=== PATIENT | male | born 1940 | race Caucasian/White ===

== ENCOUNTER → 2016-12-11 | Outpatient (CLI) | payer OTHER, MEDICARE ==
[~2016-12-11] MED LIST: ABIR1TAB PO; ACET1TAB84 PO; APIX1TAB3 PO; ATOR-26 PO; CALC-354; CALC-393 PO; CETI10TA84 PO; CLOP1TAB15 PO; CYAN100020 PO; DENOINJ IM; DIAZ2TAB PO; DOXY-300 PO; ESCI10TA17 PO; FERR28TA2 PO; HMLI SC; HYDR-5688 PO; INSU1.2I; INSU100I2 SC; KPH250 PO; LEUP30IN3 IM; LEVO100T7 PO; LEVO75TA5 PO; LISI10TA PO; LOPE1CAP6 PO; MAGN400T6 PO; METO1TAB31 PO; ONDA4TAB46 PO; PRD/25 PO; PRD5 PO; WARF3TAB6 PO; WARF4TAB8 PO; ZNTT/150 PO; iron; ventolin inhaler; vitamin B12
== END | disposition home or self-care (01) ==
LOC: C.NUCL 12:51
PROVIDERS: ATTEND Radiology Radiation Oncology
DX: C61 Malignant neoplasm of prostate (principal)

== ENCOUNTER → 2017-01-14 | Outpatient (CLI) | payer OTHER, MEDICARE | END | disposition home or self-care (01) | LOC: C.NUCL 13:03 | PROVIDERS: ATTEND Radiology Radiation Oncology | DX: C61 Malignant neoplasm of prostate (principal); C79.51 Secondary malignant neoplasm of bone ==

== ENCOUNTER → 2017-02-13 | Outpatient (CLI) | payer OTHER, MEDICARE ==
[~2017-02-13] MED LIST changes: -WARF3TAB6 PO; -WARF4TAB8 PO; -ventolin inhaler
== END | disposition home or self-care (01) ==
LOC: C.NUCL 13:01
PROVIDERS: ATTEND Radiology Radiation Oncology
DX: C61 Malignant neoplasm of prostate (principal); C79.51 Secondary malignant neoplasm of bone

== ENCOUNTER 2017-03-12 14:33 | Emergency (ER) | payer OTHER, MEDICARE ==
[~2017-03-12] VITALS: Ht 172.7 cm; Wt 109.3 kg
[~2017-03-12 14:33] MED LIST changes: -ABIR1TAB PO; -ACET1TAB84 PO; -CALC-354; -CYAN100020 PO; -DENOINJ IM; -DIAZ2TAB PO; -DOXY-300 PO; -FERR28TA2 PO; -HYDR-5688 PO; -INSU100I2 SC; -LEUP30IN3 IM; -LEVO100T7 PO; +METO-478 PO; -METO1TAB31 PO; -ONDA4TAB46 PO; -PRD5 PO
[2017-03-12 14:39] VITALS: TEMP 36.6; Ht 172.7 cm; Wt 109.3 kg
[2017-03-12] MEDS ORDERED: XYLOCAINE 1%/SOD BICARB 20 ML VIAL INFIL ONE (16:00)
[2017-03-12] MEDS ORDERED: ABIR1TAB PO (16:23)
[2017-03-12] MEDS ORDERED: PRD5 PO (16:23)
[2017-03-12] MEDS ORDERED: CYAN100020 PO (16:23)
[2017-03-12] MEDS ORDERED: INSU100I2 SC (16:23)
[2017-03-12] MEDS ORDERED: FERR28TA2 PO (16:23)
--- NOTE | 2017-03-12 16:30 | DIAGNOSTIC IMAGING REPORT ---
CT SCAN OF THE BRAIN WITHOUT IV CONTRAST CLINICAL HISTORY: Fall with head injury. COMPARISON STUDY: CT of the brain dated 03/07/2016. TECHNIQUE: Unenhanced axial CT scan of the brain is performed from the vertex to the skull base. CT DOSE: 966.18 mGy.cm FINDINGS: Brain parenchyma: There are age-related involutional changes noting mild subcortical and periventricular microangiopathic change. There is no hemorrhage, mass effect, or evidence of acute territorial ischemia by CT criteria. Valdovinos-white matter is preserved. No extra-axial fluid collection is seen. Ventricles, sulci, cisterns: Prominent secondary to involutional change. Intracranial vasculature: There is atherosclerotic calcification of the cavernous carotid arteries. Calvarium: Skeletal structures are osteopenic. There is no depressed calvarial fracture. Soft tissues: There is a tiny left frontal scalp contusion/laceration. Sinuses and mastoids: The visualized paranasal sinuses are clear. The mastoid air cells are well pneumatized. Orbits: The bony orbits are grossly intact. There are bilateral ocular lens implants. IMPRESSION: There is no hemorrhage, mass effect, or evidence of acute territorial ischemia by CT criteria. Electronically signed by: Marck Suggs M.D. 03/12/2017 4:28 PM Dictated Date/Time: 03/12/2017 4:26 PM
--- NOTE | 2017-03-12 17:14 | DIAGNOSTIC IMAGING REPORT ---
AP CHEST WITH LEFT-SIDED RIB SERIES CLINICAL HISTORY: Fall. FINDINGS: An AP chest radiograph with 5 additional views from a left-sided rib series is compared to study dated 08/25/2016 and correlated with chest CT dated 09/28/2016. The AP view is degraded by patient rotation. The examination is also degraded by large body habitus. The heart is enlarged and there is atherosclerotic calcification of the thoracic aorta. The pulmonary vasculature is noncongested. Chronic interstitial thickening is similar to previous. No airspace consolidation, large pleural effusion, or pneumothorax is seen. There is mild bibasilar atelectasis. The skeletal structures are osteopenic. There is an acute nondistracted left anterior eighth rib fracture. No additional acute rib fracture is seen on the rib series. A healed left posterior 11th rib fractures similar to previous. The remainder of the bony thorax is grossly intact. Degenerative change is seen throughout the thoracic spine. A densely sclerotic lesion is again seen in the body of L1. This is unchanged and consistent with the patient's known history of metastatic prostate cancer. IMPRESSION: 1. Cardiomegaly with no acute cardiopulmonary abnormality. 2. There is an acute left anterior eighth rib fracture. Electronically signed by: Marck Suggs M.D. 03/12/2017 5:12 PM Dictated Date/Time: 03/12/2017 5:08 PM
--- NOTE | 2017-03-12 17:16 | DIAGNOSTIC IMAGING REPORT ---
LEFT FOREARM 2 VIEWS CLINICAL HISTORY: Fall with left arm pain. FINDINGS: AP and lateral views of the left forearm are obtained. No prior studies are available for comparison at the time of dictation. The skeletal structures are osteopenic. There is no radiographic evidence of fracture in the left forearm. Arthritic change is seen in the elbow and wrist joints. Mild soft tissue swelling is present in the distal forearm. There is advanced atherosclerotic calcification of the regional arteries. IMPRESSION: 1. Mild soft tissue swelling with no radiographic evidence of acute fracture. 2. Osteopenia and arthritic change involving the left wrist and elbow. Electronically signed by: Marck Suggs M.D. 03/12/2017 5:13 PM Dictated Date/Time: 03/12/2017 5:12 PM
--- NOTE | 2017-03-12 17:17 | DIAGNOSTIC IMAGING REPORT ---
LEFT ELBOW 3 VIEWS CLINICAL HISTORY: Fall with left arm injury. FINDINGS: 3 views of the left elbow are obtained. No prior studies are available for comparison at the time of dictation. The skeletal structures are osteopenic. No fracture is seen. Enthesophytes arise from the humeral epicondyles. Large spurs arise from the radial head, and there is osteophyte formation along the medial joint space. There is no joint effusion. The overlying soft tissues are normal as imaged. There is advanced atherosclerotic calcification of the regional arteries. IMPRESSION: Osteopenia and arthritic change as above. No left elbow fracture is identified. Electronically signed by: Marck Suggs M.D. 03/12/2017 5:15 PM Dictated Date/Time: 03/12/2017 5:14 PM
--- NOTE | 2017-03-12 17:19 | DIAGNOSTIC IMAGING REPORT ---
LEFT KNEE 3 VIEWS CLINICAL HISTORY: Fall with left knee pain. FINDINGS: AP, crosstable lateral, and sunrise views of left knee are obtained. No prior studies are available for comparison at the time of dictation. The skeletal structures are osteopenic. A left knee arthroplasty is in near-anatomic alignment. No periprosthetic lucency is identified. No acute fracture is seen. There has been undersurface remodeling of the patella. A large calcified fabella is incidentally noted. A small joint effusion is suspected. There is prepatellar soft tissue edema and laceration. Advanced atherosclerotic calcification is noted in the regional arteries. IMPRESSION: 1. Prepatellar soft tissue edema and laceration. 2. No fracture is seen. 3. A left knee arthroplasty is in near-anatomic alignment. Electronically signed by: Marck Suggs M.D. 03/12/2017 5:17 PM Dictated Date/Time: 03/12/2017 5:15 PM
--- NOTE | 2017-03-12 17:23 | DIAGNOSTIC IMAGING REPORT ---
LEFT HAND 3 VIEWS CLINICAL HISTORY: Fall with left hand pain. FINDINGS: 3 views of left hand are obtained. No prior studies are available for comparison at the time of dictation. The skeletal structures are osteopenic. There is no radiographic evidence of fracture. Advanced arthritic change with bony sclerosis, overgrowth, and subluxation is seen at the first carpometacarpal joint. Moderate narrowing is seen at the radiocarpal articulation, and there is moderate arthritic change at the first metacarpal pharyngeal joint. There is erosive osteoarthritic changes seen involving the interphalangeal joints, distal greater than proximal. This is greatest involving the second and third distal interphalangeal joints. Mild soft tissue edema is present in the fingers. There is advanced atherosclerotic calcification of the regional arteries. IMPRESSION: 1. No fracture is identified. 2. Osteopenia and advanced arthritic change as detailed above. Electronically signed by: Marck Suggs M.D. 03/12/2017 5:20 PM Dictated Date/Time: 03/12/2017 5:17 PM
--- NOTE | 2017-03-12 18:31 | EMERGENCY ROOM VISIT NOTE ---
ED Visit Note First contact with patient: 16:22 I have personally seen and evaluated the patient with the physician academic affairs assistant. I agree with the diagnostic/management decisions and have personally been involved in these decisions and agree with the diagnosis.
[2017-03-12 19:01] VITALS: BP 150/66; O2SAT 96
[2017-03-12 19:02] VITALS: PULSE 58
[2017-03-12] MEDS ORDERED: ONDA4TAB46 PO (19:37)
--- NOTE | 2017-03-13 00:09 | EMERGENCY ROOM VISIT NOTE ---
ED Visit Note First contact with patient: 15:07 Chief Complaint: Fall. History of Present Illness: Mr. Kathleen is a 76-year-old white male who is brought into the ED via ambulance accompanied by multiple family members. Patient was transferred from the [facility] for multiple injuries he sustained on a fall. According to documentation patient was walking down an incline, lost his balance and fell onto the left side of his body. He denies any lightheaded dizziness before the fall and loss of consciousness at the time of the fall. Patient was transferred because she is currently on Plavix and sustained a scalp wound and what was described as a serious left leg wound. Additionally patient reports since the time of the injuries he has had no dizziness, headache, visual changes, hearing changes, difficulty speaking, difficult swallowing, difficulty coordinating body movements, chest pain, shortness of breath, abdominal pain, nausea, vomiting, extremity weakness/ numbness/tingling. Currently patient is complaining of pain in the area of a skin abrasion/ laceration over the left frontal area, the left lateral thorax in the area of rib 10, left elbow and forearm pain, and left knee pain. Patient rates his overall discomfort 7/10 with prominence over his knee injury. All of this pain worsens with palpation. He has not identified any alleviating factors related to the pain. He reports he has not taken any medications for pain prior to arrival at the hospital. Review of Systems: As noted above in history of present illness. body systems were reviewed and found to be negative as noted above. Past Medical History: (1) Anemia (2) Anticoagulated on Coumadin (3) Chest pain radiating to arm (4) Coronary artery disease with history of myocardial infarction without history of CABG (5) Diabetes (6) GERD (gastroesophageal reflux disease) (7) Hyperlipidemia (8) Hypertension (9) Hypothyroidism (10) Osteoarthritis (11) Paroxysmal atrial fibrillation (12) Prostate cancer Surgical Problems: (1) S/P prostatectomy (2) Stented coronary artery Current Medications: Medications Dose Route/Sig Max Daily Dose Days Date Category Dose Instructions Humalog Kwikpen (Insulin Lispro (Human)) 100 Unit/Ml Inj 10 Units SC QAM 03/12/17 Reported IF BSG > 150 TAKES 10 UNITS, IF BSG HIGHER PT ADJUSTS DOSE ACCORDINGLY. Zytiga (Abiraterone Acetate) 250 Mg Tab 1,000 Mg PO QAM 03/12/17 Reported Vitamin B12 (Cyanocobalamin) 1,000 Mcg Tab 1,000 Mcg PO BID 03/12/17 Reported Iron (Ferrous Sulfate) Unknown Strength Tab 120 Mg PO BID 03/12/17 Reported Prednisone 5 Mg Tab 5 Mg PO BID 03/12/17 Reported Eliquis (Apixaban) 5 Mg Tab 5 Mg PO BID 02/07/17 Reported Toujeo Solostar (Insulin Glargine) 300 Unit/Ml Inj 60 Units HS 10/23/16 Reported K-Phos Neutral (Phosphorus) 250 Mg Tab 0.5 Tab PO BID 08/25/16 Reported Anti-Diarrheal (Loperamide Hcl) 2 Mg Cap 4 Mg PO PRN 03/07/16 Reported Levothyroxine Sodium 75 Mcg Tab 75 Mcg PO DAILY 03/07/16 Reported Prinivil (Lisinopril) 10 Mg Tab 10 Mg PO DAILY 11/13/15 Reported Lexapro (Escitalopram Oxalate) 10 Mg Tab 10 Mg PO DAILY AT 1500 11/13/15 Reported Toprol Xl (Metoprolol Succinate) 25 Mg Tab 25 Mg PO DAILY 12/12/14 Reported Calcium (Calcium Carbonate) 600 Mg Tab 1,200 Mg PO QPM 12/12/14 Reported Plavix (Clopidogrel Bisulfate) 75 Mg Tab 75 Mg PO DAILY 05/03/10 Reported Zantac (Ranitidine HCl) 150 Mg Tab 150 Mg PO BID 05/03/10 Reported Lipitor (Atorvastatin Calcium) 80 Mg Tab 80 Mg PO HS 05/03/10 Reported Mag-Ox (Magnesium Oxide) 400 Mg Tab 1,200 Mg PO QPM 05/03/10 Reported Zyrtec (Cetirizine HCl) 10 Mg Tab 10 Mg PO PRN 05/18/09 Reported Allergies to Medications: Aspirin, penicillin. Social History: Patient is currently retired; he feels safe in his home environment; he denies tobacco use. Tetanus Immunization Status: Patient reports up-to-date. Physical Examination: Vital Signs: Date Time Temp Pulse Resp B/P Pulse Ox O2 Delivery O2 Flow Rate FiO2 03/12/17 19:02 58 03/12/17 19:01 45 16 150/66 96 Room Air 03/12/17 17:09 50 16 165/59 98 Room Air 03/12/17 16:06 48 19 157/99 95 Room Air 03/12/17 15:01 53 03/12/17 14:39 36.6 56 16 165/77 98 Room Air GENERAL: 76-year-old male in mild distress due to pain, nontoxic-appearing, afebrile and hemodynamically stable. NEUROLOGICAL: Awake, alert and oriented to person, place and time. Answering questions appropriately and following commands. Cranial nerves II through XII grossly intact. Good hand eye coordination. No focal motor or sensory deficits. Good short-term long-term recall. SKIN: Warm, dry and pink. Soft tissue injuries: Left forehead shows a 1.5 cm full-thickness laceration and left knee shows an 11.1 cm full-thickness laceration over the anterior aspect. Both of these wounds were minimally bleeding. Additionally patient has multiple skin tears throughout the left arm including the elbow, forearm and hand. HEENT: Skull: Atraumatic and normocephalic. No bony deformity, crepitus or tenderness. No raccoon's eyes or valente signs. No drainage from the ears or nostrils; no hemotympanum. Face: Mild tenderness in the left frontal area without bony deformity or crepitus. No other facial tenderness or bony crepitus. PERRLA. EOMI without nystagmus. Sclera white and conjunctiva pink. No malocclusion. No intraoral trauma. Airway patent. Speech normal. Trachea midline. No jugular venous distention. BACK: No tenderness over the bony cervical, thoracic and lumbar spine. Full range of motion of the cervical spine. No CVA tenderness. THORAX: Lungs sounds are clear to auscultation and equal bilaterally with symmetrical chest wall. Moderate tenderness over the anterior and lateral aspect of ribs 8-10 on the left. No palpable bony crepitus, deformity or soft tissue injury. No subcutaneous air. HEART: Regular rate and rhythm. No gallops, rubs or murmurs are appreciated. ABDOMEN: Flat, soft and nontender. Positive bowel sounds in all quadrants. No guarding, rigidity or organomegaly. PELVIS: Stable and non tender to compression and rock. LEFT UPPER EXTREMITY: Soft tissue injuries as noted above.. No tenderness over the shoulder, upper arm, elbow, forearm, wrist or hand. Full range of motion of the shoulder, elbow, forearm, wrist and hand. LEFT LOWER EXTREMITY: Soft tissue injury as noted above. No shortening or malrotation. No tenderness over the hip, thigh, mild tenderness over his laceration but no tenderness throughout the lower leg, ankle or foot. Full range of motion of the hip, knee, ankle and toes. Distal pulses were intact and equal bilaterally. Distal sensation was intact and equal bilaterally. Capillary refill is brisk. ED Course: Patient is assessed as noted above. Patient was offered pain medication multiple times and refused. Head CT: Was reviewed by myself and read by the radiologist showing no acute intracranial abnormalities or skull fractures. PA Chest and Left Sided Rib X-Ray Series: Was read by myself and the radiologist and shows a left anterior eighth rib fracture. No pneumothorax. Left Elbow X-Rays: Was read by myself and the radiologist showing no acute fractures or dislocations. Left Forearm X-Rays: Was read by myself and the radiologist and shows no acute fractures. Left Knee X-Rays: Was read by myself and the radiologist and shows no acute fractures or dislocations. Wound repair: Complexity: Basic: Verbal consent was obtained after the risks and benefits were explained. The skin was prepped at all laceration and skin tears with betadine and a sterile field set. Wound edges of the full-thickness wounds was anesthetized with approximately 10.3 ml buffered 1% lidocaine. The wounds were explored for foreign bodies and none found. Copious irrigation was performed using sterile saline. With direct pressure the bleeding subsided. Debridement was not performed. The wound edges full-thickness wounds were approximated using: Left forehead wound: 6-0 Ethilon with 2 simple interrupted sutures, Left knee wound: 5.0 Ethilon with 17 simple interrupted sutures. The wound ends of all skin tears were closed with Steri-Strips. Hemostasis and excellent approximation was achieved. Antibacterial ointment and a sterile dressing applied to the full-thickness wounds. No complications and the patient tolerated the procedure well. Patient was reassessed multiple times during his stay in the emergency department. Patient's case was reviewed with Dr. Aragon; he had apparently assessed the patient we agreed on diagnostic approach, treatment, disposition and plan. Patient and were educated about tonight's findings and instructed on his treatment plan; he verbalizes understanding and agreement with this plan. Clinical Impression: Fall. Multiple full-thickness lacerations and superficial skin tears. Disposition: Patient discharged home in stable condition accompanied by his ; prior to departure he was reassessed and subjectively reported he was feeling much better and was pain-free. Plan: Comfort measures, wound care and signs of infection were discussed with the patient and his . Additionally signs of head injury were discussed with the patient's . Patient was encouraged to follow-up with his primary care provider or return to the ED for signs of infection, suture removal of her scalp laceration of 5-6 days and suture removal of his knee laceration in 10-12 days. Patient was encouraged return to the ED for any signs of head injury or any new/ concerning symptoms.
[2017-05-15] MEDS ORDERED: DOXY-300 PO (13:13)
[2017-06-12] MEDS ORDERED: PRD/25 PO (14:12)
[2017-07-02] MEDS ORDERED: ZNTT/150 PO (19:11)
[2017-07-02] MEDS ORDERED: APIX1TAB3 PO (19:15)
[2017-07-02] MEDS ORDERED: CALC-354 (19:15)
[2017-07-02] MEDS ORDERED: HYDR-5688 PO (19:17)
[2017-07-02] MEDS ORDERED: ACET1TAB84 PO (19:17)
[2017-08-21] MEDS ORDERED: DENOINJ IM (13:22)
[2017-08-21] MEDS ORDERED: LEUP30IN3 IM (13:22)
== END 2017-03-12 19:55 | disposition home or self-care (01) ==
LOC: EDBD 14:33 → C.EDB 14:35
DX: S01.81XA Laceration without foreign body of other part of head, initial encounter (principal); S81.012A Laceration without foreign body, left knee, initial encounter; R07.81 Pleurodynia; I25.10 Atherosclerotic heart disease of native coronary artery without angina pectoris; E11.9 Type 2 diabetes mellitus without complications; E78.5 Hyperlipidemia, unspecified; I48.0 Paroxysmal atrial fibrillation; I10 Essential (primary) hypertension; E03.9 Hypothyroidism, unspecified; M19.90 Unspecified osteoarthritis, unspecified site; Z79.02 Long term (current) use of antithrombotics/antiplatelets; Z79.4 Long term (current) use of insulin; Z79.899 Other long term (current) drug therapy; Z98.61 Coronary angioplasty status; Z85.46 Personal history of malignant neoplasm of prostate; W10.2XXA Fall (on)(from) incline, initial encounter; Y93.01 Activity, walking, marching and hiking

== ENCOUNTER → 2017-03-29 | Outpatient (CLI) | payer OTHER, MEDICARE ==
[~2017-03-29] MED LIST changes: +ABIR1TAB PO; +ACET1TAB84 PO; +CALC-354; +CYAN100020 PO; +DENOINJ IM; +DIAZ2TAB PO; +DOXY-300 PO; +FERR28TA2 PO; -HMLI SC; +HYDR-5688 PO; +INSU100I2 SC; +LEUP30IN3 IM; +LEVO100T7 PO; +PRD5 PO; -iron; -vitamin B12
== END | disposition home or self-care (01) ==
LOC: C.NUCL 13:07
PROVIDERS: ATTEND Radiology Radiation Oncology
DX: C61 Malignant neoplasm of prostate (principal); C79.51 Secondary malignant neoplasm of bone

== ENCOUNTER → 2017-04-25 | Outpatient (CLI) | payer OTHER, MEDICARE ==
[~2017-04-25] MED LIST changes: -ABIR1TAB PO
== END | disposition home or self-care (01) ==
LOC: C.NUCL 13:06
PROVIDERS: ATTEND Radiology Radiation Oncology
DX: C61 Malignant neoplasm of prostate (principal); C79.51 Secondary malignant neoplasm of bone

== ENCOUNTER 2017-05-11 15:32 | Emergency (ER) | payer OTHER, MEDICARE ==
[~2017-05-11] VITALS: Ht 175.3 cm; Wt 105.6 kg
[~2017-05-11 15:32] MED LIST changes: -ACET1TAB84 PO; -CALC-354; -DENOINJ IM; -DIAZ2TAB PO; -DOXY-300 PO; -HYDR-5688 PO; -LEUP30IN3 IM; -LEVO100T7 PO; -PRD/25 PO
[2017-05-11 15:39] VITALS: TEMP 36.4; Ht 175.3 cm; Wt 105.6 kg
[2017-05-11] MEDS ORDERED: LIDO/EPINEPHRINE/SOD BICARB 20 ML VIAL INFIL ONE (16:15)
--- NOTE | 2017-05-11 16:18 | EMERGENCY ROOM VISIT NOTE ---
ED Visit Note First contact with patient: 16:00 I have seen and examined this patient with Nayla Cosme and generally agree with the treatment plan as discussed. (Cody Killian MD) First contact with patient: 16:00 CHIEF COMPLAINT: Infection of the right forearm skin tear HISTORY OF PRESENT ILLNESS: This 76-year-old male patient presents to the emergency department with his with concern for an infected skin tear on his right arm that has not been healing. Patient states he scraped his arm on a wall 2 weeks ago, he has been washing the wound regularly in cleaning with peroxide and applying antibiotic ointment, however the wound continues to not heal. He saw his PCP several days ago and was placed on doxycycline for possible infection, he has been taking this for 2 days with little improvement. He has noticed thick yellow drainage from the wound. He denies any fever, chills, or loss of appetite. They rate the pain as aching and 5/10. Tetanus shot is up to date. The patient is receiving chemotherapy for metastatic prostate cancer and is also diabetic. He denies chest pain, shortness breath, nausea/vomiting, abdominal pain, urinary complaints. He is on Xarelto and Plavix. REVIEW OF SYSTEMS: A review of systems was performed with positives and pertinent negatives listed in the history of present illness. All other systems were reviewed and are negative. ALLERGIES: See chart MEDICATIONS: See chart PMH: See chart SOCIAL HISTORY: See chart PHYSICAL EXAM: Vital Signs: Reviewed Nurse's notes, vital signs stable. GENERAL : Pleasant and cooperative, no acute distress, non toxic in appearance, well- developed well-nourished. SKIN: There is an large skin tear on the right posterior forearm which measures about 10 cm x 6 cm in diameter. The skin edges are not approximated and there is raw, excoriated skin exposed. A portion of the skin flap appears necrotic and is nonadherent to the rest of the skin, when lifted up there is thick yellow purulent drainage noted with a foul smell. There is no surrounding fluctuance or induration, no extending erythema to suggest cellulitis. There are skin markings noted on the patient's arms from previous visit with PCP, that indicate an improvement in cellulitis since starting on antibiotics. Radial pulse intact, sensation and motor function intact. Capillary refill less than 2 seconds. MUSCULOSKELETAL: There is no limitation of the range of motion of the right arm. EMERGENCY DEPARTMENT COURSE: I examined the patient. Verbal consent was obtained to perform the procedure. After saline and Betadine cleansing and 3 mL of 1% buffered lidocaine with epinephrine anesthesia, the necrosed skin was lifted with forceps and purulent drainage was expressed. A swab was obtained for culture. The flap was surgically excised from healthy tissue using #11 scalpel blade, and underlying infected tissue was easily debrided, with good exposure of healthy pink tissue and blood flow present. The wound cavity was then copiously irrigated with sterile saline under pressure. Bleeding controlled. The wound was dressed with petroleum gauze, and wrapped with Kerlix. The patient tolerated the procedure well. Referral to wound care clinic was also provided to the patient. The patient was discharged home in stable condition. (Nayla Cosme CRNP) Problem List Medical Problems: (1) Anemia Status: Chronic (2) Anticoagulated on Coumadin Status: Chronic (3) Coronary artery disease with history of myocardial infarction without history of CABG Status: Chronic (4) Diabetes Status: Chronic (5) GERD (gastroesophageal reflux disease) Status: Chronic (6) Hyperlipidemia Status: Chronic (7) Hypertension Status: Chronic (8) Hypothyroidism Status: Chronic (9) Osteoarthritis Status: Chronic (10) Paroxysmal atrial fibrillation Status: Chronic (11) Prostate cancer Permanent Comment: Adenocarcinoma the prostate diagnosed 10/02/2005 Magalis 4+5 Status post radical prostatectomy T3 [id number] with subsequent rise in PSA Status post completion of radiation therapy 2006 received 7300 cGy Ongoing hormonal suppression for 11 years 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 Zytega and prednisone therapy for 2 years Progression of bone disease seen on restaging studies 09/28/2016 Status: Chronic Surgical Problems: (1) S/P prostatectomy Status: Chronic (Nayla Cosme CRNP) Current/Historical Medications Scheduled Apixaban (Eliquis), 5 MG PO BID Atorvastatin (Lipitor), 80 MG PO HS Calcium Carbonate (Calcium), 1,200 MG PO QPM Cetirizine (Zyrtec), 10 MG PO PRN Clopidogrel (Plavix), 75 MG PO DAILY Cyanocobalamin (Vitamin B12), 1,000 MCG PO BID Escitalopram (Lexapro), 10 MG PO DAILY AT 1500 Ferrous Sulfate (Iron), 120 MG PO BID Insulin Glargine (Toujeo Solostar), 63 UNITS HS Insulin Lispro (Human) (Humalog Kwikpen), 10 UNITS SC QAM Levothyroxine Sodium (Levothyroxine Sodium), 75 MCG PO DAILY Lisinopril (Prinivil), 10 MG PO DAILY Loperamide Hcl (Anti-Diarrheal), 4 MG PO prn Magnesium Oxide (Mag-Ox), 1,200 MG PO QPM Metoprolol Succinate (Toprol Xl), 25 MG PO DAILY Phosphorus (K-Phos Neutral), 0.5 TAB PO BID Prednisone (Prednisone), 5 MG PO BID Scheduled PRN Ranitidine (Zantac), 150 MG PO BID PRN for Insomnia Allergies Coded Allergies: Penicillins (Verified Allergy, Mild, HIVE'S, 03/12/17) Flushing (Verified Allergy, Mild, HIVES, 03/12/17) Aspirin (Verified Allergy, Unknown, HIVES, 03/12/17) [place] (Verified Allergy, Unknown, HIVES, 03/12/17) Tomato (Verified Allergy, Unknown, HIVES, 03/12/17) Uncoded Allergies: scramled and fried eggs (Adverse Reaction, Intermediate, diarrhea, 10/23/16 ) Vital Signs Date Time Temp Pulse Resp B/P (MAP) Pulse Ox O2 Delivery O2 Flow Rate FiO2 05/11/17 17:28 58 16 149/75 100 05/11/17 15:39 36.4 55 16 147/74 96 (Nayla Cosme CRNP) Departure Information Impression Primary Impression: Skin tear of right upper extremity Additional Impression: Infection of skin Dispostion Home / Self-Care Condition GOOD Referrals Van Valiente M.D. (PCP) Patient Instructions ED Bandage Change, ED Wound Care, [facility] Additional Instructions Change the dressing once a day. After removing the old dressing, clean the wound with warm soapy water only. Do not scrub the wound. Pat the area dry. Apply the petroleum gauze over the wound directly, followed by dry gauze and gauze wrap. Always wash hands before and after performing a dressing change. A referral to the wound clinic has been placed. You should hear from them shortly to set up an appointment for follow-up of your wound care. Continue taking her doxycycline as prescribed for the full course. It is important that you do not stop taking this before the course is completed. Please return to the ER for any worsening symptoms, including increasing pain, redness, swelling, pus drainage, streaking up the arm, fever/chills/feeling ill , or any other concerns. Problem Qualifiers
[2017-05-11 17:28] VITALS: BP 149/75; PULSE 58; O2SAT 100
[2017-05-15] MEDS ORDERED: DOXY-300 PO (13:13)
[2017-06-12] MEDS ORDERED: PRD/25 PO (14:12)
[2017-07-02] MEDS ORDERED: ZNTT/150 PO (19:11)
[2017-07-02] MEDS ORDERED: APIX1TAB3 PO (19:15)
[2017-07-02] MEDS ORDERED: CALC-354 (19:15)
[2017-07-02] MEDS ORDERED: HYDR-5688 PO (19:17)
[2017-07-02] MEDS ORDERED: ACET1TAB84 PO (19:17)
[2017-08-21] MEDS ORDERED: DENOINJ IM (13:22)
[2017-08-21] MEDS ORDERED: LEUP30IN3 IM (13:22)
== END 2017-05-11 17:29 | disposition home or self-care (01) ==
LOC: C.EDB 15:33 → C.EDD 17:29
DX: S51.811A Laceration without foreign body of right forearm, initial encounter (principal); L08.9 Local infection of the skin and subcutaneous tissue, unspecified; X58.XXXA Exposure to other specified factors, initial encounter; D64.9 Anemia, unspecified; Z51.81 Encounter for therapeutic drug level monitoring; Z79.01 Long term (current) use of anticoagulants; I25.10 Atherosclerotic heart disease of native coronary artery without angina pectoris; E11.9 Type 2 diabetes mellitus without complications; K21.9 Gastro-esophageal reflux disease without esophagitis; E78.5 Hyperlipidemia, unspecified; I10 Essential (primary) hypertension; E03.9 Hypothyroidism, unspecified; M19.90 Unspecified osteoarthritis, unspecified site; I48.0 Paroxysmal atrial fibrillation; C61 Malignant neoplasm of prostate; Z79.4 Long term (current) use of insulin

== ENCOUNTER → 2017-06-05 | Outpatient (CLI) | payer OTHER, MEDICARE ==
[~2017-06-05] MED LIST changes: +ACET1TAB84 PO; +CALC-354; +DENOINJ IM; +DIAZ2TAB PO; +DOXY-300 PO; +HYDR-5688 PO; +LEUP30IN3 IM; +LEVO100T7 PO; -METO-478 PO; +METO1TAB31 PO; +PRD/25 PO
--- NOTE | 2017-06-05 18:49 | DIAGNOSTIC IMAGING REPORT ---
BONE SCAN WHOLE BODY CLINICAL HISTORY: Metastatic prostate carcinoma. COMPARISON STUDY: Whole body bone scan September 14, 2016. TECHNIQUE: 27.4 mCi of technetium 99m MDP was injected IV at 12:00 PM on June 05, 2017. 3 hours following injection, flow body imaging was performed in the anterior and posterior projections. FINDINGS: Expected soft tissue and renal uptake is present. Uptake within the feet is likely degenerative. Uptake within the sternum has increased in extent since prior exam of September 14, 2016. Foci of moderate radiotracer uptake within multiple mid anterior left ribs is likely posttraumatic and corresponds to fracture shown on exam of March 12, 2017. Additional foci of uptake within multiple additional anterior ribs is nonspecific. Multifocal uptake within the lower thoracic and lumbosacral spine has increased since exam of September 14, 2016. Uptake within the right iliac bone has improved. The findings suggest a mixed treatment response. IMPRESSION: 1. Findings consistent with a mixed treatment response. However, overall progression of skeletal metastases with increase in uptake associated with the sternal and spinal metastases since prior exam September 14, 2016. Interval improvement in uptake within the right iliac lesion. 2. Multifocal uptake within several mid anterior left ribs is post traumatic. Uptake within additional anterior left upper ribs is nonspecific and could be posttraumatic or neoplastic. Electronically signed by: Elijah Henry M.D. 06/05/2017 6:48 PM Dictated Date/Time: 06/05/2017 4:08 PM
== END | disposition home or self-care (01) ==
LOC: C.NUCL 11:27
PROVIDERS: ATTEND Physician Assistant Medical
DX: C61 Malignant neoplasm of prostate (principal); C79.51 Secondary malignant neoplasm of bone

== ENCOUNTER 2017-06-17 16:55 | Emergency (ER) | payer OTHER, MEDICARE ==
[~2017-06-17] VITALS: Ht 175.3 cm; Wt 105.1 kg
[~2017-06-17 16:55] MED LIST changes: -ACET1TAB84 PO; -CALC-354; -DENOINJ IM; -DIAZ2TAB PO; -DOXY-300 PO; -HYDR-5688 PO; -LEUP30IN3 IM; -LEVO100T7 PO
[2017-06-17 17:15] VITALS: TEMP 36.7; Ht 175.3 cm; Wt 105.1 kg
[2017-06-17] MEDS ORDERED: LEVO100T7 PO (17:26)
[2017-06-17] MEDS ORDERED: ACETAMINOPHEN IV 650 MG in EMPTY BAG 0 ML IV ONE (18:15)
[2017-06-17] MEDS ORDERED: SODIUM CHLORIDE 0.9% 1000ML 1,000 ML IV ONE (18:15)
--- NOTE | 2017-06-17 18:49 | DIAGNOSTIC IMAGING REPORT ---
CT SCAN OF THE BRAIN WITHOUT IV CONTRAST CLINICAL HISTORY: Fall one week ago. Headache. COMPARISON STUDY: CT of the brain dated 03/12/2017. TECHNIQUE: Unenhanced axial CT scan of the brain is performed from the vertex to the skull base. CT DOSE: 1020.47 mGy.cm FINDINGS: Brain parenchyma: There are age-related involutional changes noting mild subcortical and periventricular microangiopathic change. There is no hemorrhage, mass effect, or evidence of acute territorial ischemia by CT criteria. Valdovinos-white matter is preserved. No extra-axial fluid collection is seen. Ventricles, sulci, cisterns: Prominent secondary to involutional change. Intracranial vasculature: There is atherosclerotic calcification of the cavernous carotid arteries. Calvarium: The skeletal structures are osteopenic. No depressed calvarial fracture is seen. Sinuses and mastoids: The visualized paranasal sinuses are clear. The mastoid air cells are well pneumatized. Orbits: The bony orbits are grossly intact. There are bilateral ocular lens implants. IMPRESSION: There is no hemorrhage, mass effect, or evidence of acute territorial ischemia by CT criteria. Electronically signed by: Marck Suggs M.D. 06/17/2017 6:47 PM Dictated Date/Time: 06/17/2017 6:45 PM
[2017-06-17 18:51] LABS: BASO % 0.2 %; BASO ABS # 0.01 K/uL (0-0.2); COMPLETE YES; EOS % 1.7 %; HEMATOCRIT 34.6 % (42-52); IG% 0.4 %; LYMPH % 10.6 %; LYMPH ABS # 0.57 K/uL (1.2-3.4); MEAN CORPUSCULAR HEMOGLOBIN 29.6 pg (25-34); MEAN CORPUSCULAR HGB CONC 31.8 g/dl (32-36); MEAN PLATELET VOLUME 10.1 fL (7.4-10.4); MONO % 11.5 %; NEUT % 75.6 %; PLATELET COUNT 274 K/uL (130-400); RED BLOOD COUNT 3.72 M/uL (4.7-6.1); WHITE BLOOD COUNT 5.37 K/uL (4.8-10.8)
--- NOTE | 2017-06-17 18:52 | DIAGNOSTIC IMAGING REPORT ---
CT SCAN OF THE CERVICAL SPINE CLINICAL HISTORY: Fall one week ago. Neck pain. COMPARISON STUDY: No priors. TECHNIQUE: CT scan of the cervical spine is performed from the skull base to the upper thoracic spine. Images are reviewed in the axial, sagittal, and coronal planes. IV contrast was not administered for this examination. A dose lowering technique was utilized adhering to the principles of ALARA. CT DOSE: Reported separately under the concurrently performed CT scan of the brain. FINDINGS: Skeletal structures: The skeletal structures are osteopenic. There is no evidence of fracture or subluxation involving the cervical spine. Vertebral body height and alignment are maintained. There is straightening of the cervical lordosis. The odontoid process and lateral masses are intact. The atlantoaxial articulation is preserved noting productive degenerative change. The spinous processes appear intact. Anterior osteophytes are seen throughout. There is moderate to advanced multilevel cervical spondylosis. Uncovertebral and facet arthropathy contribute to neural foraminal narrowing at most levels. Intervertebral discs: There is moderate to advanced disc space narrowing seen from C3 -C4 through C7-T1. Central canal: Posterior disc osteophyte complexes are seen at all levels between C3-C4 and C7-T1. This likely contributes to multilevel acquired compromise of the central canal. Soft tissues: The prevertebral and paraspinous soft tissues are within normal limits. The thyroid gland is atrophic. Atherosclerotic calcification is noted in the carotid bulbs. Calvarium: The visualized calvarium at the skull base appears intact. Brain parenchyma: Partially visualized brain parenchyma the skull base is within normal limits noting age-related involutional change. Sinuses and mastoids: The visualized paranasal sinuses are clear. There is a trace left mastoid effusion. The right mastoid air cells are well pneumatized. Lung apices: Clear as visualized. IMPRESSION: 1. There is no evidence of fracture or subluxation involving the cervical spine. 2. Osteopenia and spondylotic change as above. Electronically signed by: Marck Suggs M.D. 06/17/2017 6:51 PM Dictated Date/Time: 06/17/2017 6:48 PM
[2017-06-17 19:00] LABS: PROTHROMBIN TIME (PATIENT) 10.4 SECONDS (9.0-12.0)
[2017-06-17 19:10] LABS: BUN/CREATININE RATIO 13.5 (10-20); CALCIUM 8.4 mg/dl (8.5-10.1); CREATININE 0.74 mg/dl (0.60-1.40); POTASSIUM 3.9 mmol/L (3.5-5.1)
[2017-06-17] MEDS ORDERED: DIAZEPAM INJ 5 MG/ML 2 ML CARP IV STA (19:55)
[2017-06-17] MEDS ORDERED: OPTIRAY 320 IV PRN (20:15)
--- NOTE | 2017-06-17 20:52 | DIAGNOSTIC IMAGING REPORT ---
CT ANGIOGRAM OF THE BRAIN; CT ANGIOGRAM OF THE NECK CLINICAL HISTORY: Head and neck pain. COMPARISON STUDY: CT scan of the brain and cervical spine performed the same day 06/17/2017. TECHNIQUE: Following the IV administration of 119 of Optiray 320, CT angiogram of the head and neck was performed from the aortic arch to the vertex. Images are reviewed in the axial, sagittal, and coronal planes. 3-D MIPS images are created and assessed. IV contrast was administered without complication. All measurements were calculated based on NASCET criteria. A dose lowering technique was utilized adhering to the principles of ALARA. CT DOSE: 646.51 mGy.cm FINDINGS: Brain parenchyma: There are age-related involutional changes noting mild subcortical and periventricular microangiopathic disease. There is no hemorrhage, mass effect, or evidence of acute territorial ischemia by CT criteria. There is no evidence of enhancing mass lesion on the angiogram phase images. The ventricles, sulci, and cisterns are normal in configuration. Valdovinos-white matter differentiation is preserved. No extra-axial fluid collection is seen. Thoracic aorta: There is mild atherosclerotic calcification of the thoracic aorta. Visualized portions of the thoracic aorta are normal in caliber. The aortic arch demonstrates standard 3-vessel anatomy. Right carotid arterial system: The right common carotid artery is widely patent, as are the right internal and external carotid arteries. Mild atherosclerotic calcification is noted in the carotid bulb. Left carotid arterial system: The left common carotid artery is widely patent, as are the left internal and external carotid arteries. Mild atherosclerotic calcification is seen in the carotid bulb. Vertebral arteries: Widely patent bilaterally noting right-sided dominance. Subclavian arteries: Widely patent bilaterally. Intracranial vasculature: There is atherosclerotic calcification of the cavernous carotid arteries. There is origin of the right posterior cerebral artery. A right posterior communicating artery is identified. The internal carotid arteries are patent at the skull base, as are the anterior and middle cerebral arteries bilaterally. The vertebrobasilar system and posterior cerebral arteries are widely patent. The right vertebral artery is dominant. There is no aneurysm, high-grade stenosis, or focal vessel cut off seen throughout the intracranial circulation. Jugular veins: Widely patent bilaterally. Dural sinuses: Patent. Lung apices: Partially visualized upper lobe lung parenchyma appears clear. Soft tissues: The visualized pharyngeal soft tissues are normal in appearance noting angiographic phase technique. The oropharyngeal airway appears widely patent. Calcified sialoliths are noted in the parotid glands. The salivary glands are otherwise normal in appearance. The thyroid gland is mildly atrophic. No cervical lymphadenopathy is seen. Calcified tonsilliths are noted. Orbits: The bony orbits are intact. Orbital contents are normal as visualized noting bilateral ocular lens implants. Skeletal structures: The skeletal structures are osteopenic. The calvarium appears intact. Moderate multilevel cervical spondylosis is observed. Sinuses and mastoids: Trace mucosal thickening is seen in the maxillary antra. The remaining paranasal sinuses are clear. There is a small right mastoid effusion. The left mastoid air cells are well pneumatized. IMPRESSION: 1. There is no hemorrhage, mass effect, or evidence of acute territorial ischemia by CT criteria. 2. Unremarkable CT angiogram of the brain. 3. Unremarkable CT angiogram of the neck. Electronically signed by: Marck Suggs M.D. 06/17/2017 8:50 PM Dictated Date/Time: 06/17/2017 8:41 PM
--- NOTE | 2017-06-17 21:01 | EMERGENCY ROOM VISIT NOTE ---
ED Visit Note First contact with patient: 17:38 Patient seen and examined at bedside and discussed physician obstetric assistant evaluation with patient and family. Discussed all results thus far as well as patient's complaints of headache and neck pain. Patient with reassuring vitals and labs, CT head and C-spine negative. However given fall 1 week prior and delay in presentation pain, some back for CT angiogram to rule out any additional injury including dissection. Patient with arthritic changes noted, no metastases noticed C-spine the patient does have other bony metastases related to his prostate cancer. Additional imaging were reviewed and was negative for any additional injury or pathology. Patient was moderately improved following mild dose of muscle relaxer here.
[2017-06-17] MEDS ORDERED: DIAZ2TAB PO (21:38)
[2017-06-17 21:50] VITALS: BP 142/75; PULSE 52; O2SAT 96
--- NOTE | 2017-06-18 23:04 | EMERGENCY ROOM VISIT NOTE ---
ED Visit Note First contact with patient: 17:38 Chief Complaint: Headache and neck pain. History of Present Illness: Mr. Kathleen is a 76-year-old white male who ambulates with the use of a cane into the ED accompanied by his and son complaining of a headache and neck pain. Historically patient reports she has a history of diabetes, coronary artery disease and is status post CABG, paroxysmal atrial fibrillation, and prostrate cancer. Patient and reports he has been having more frequent falls then previously. When questioned they reports he slipped and fell on a wet bathroom floor approximately 4 weeks ago and struck his occipital head on the bathroom floor. He reports at that time he did not have a loss of consciousness and until today he was not having any symptoms. They gone report that approximately one week ago while getting out of bed he fell and struck his head on the floor again; he does not remember exactly where he struck the head. At that time he had no loss of consciousness and has had no symptoms until today. Patient reports he was awoken from sleep this morning, approximately approximately 8 hours ago, with a severe headache and neck pain. Since that time the pain has been constant. He places his discomfort over the occipital area just above the cervical spine. He describes his pain as a constant pressure sensation. The pain is nonradiating. He currently rates his discomfort 9/10. His pain worsens when he laterally rotates his head and cervical spine to the left. He has not identified any alleviating factors related to the pain. He has not taken any medications for pain prior to arrival at the hospital. Associated with his pain he does report he has mild dizziness with head movement and positional changes. He denies visual changes, hearing changes, difficulty speaking, difficulty swallowing, difficulty ambulating/coordinating body movements, thoracic and lumbar back pain, upper respiratory tract symptoms, cough, shortness of breath, chest discomfort, palpitations, abdominal pain, nausea/vomiting, decreased appetite, diarrhea, constipation, rectal bleeding, black/tarry stools, urinary symptoms, hematuria, extremity weakness/numbness/tingling. Review of Systems: As noted above in history of present illness. All body systems were reviewed and found to be negative as noted above. Past Medical History: As noted above, anemia, GERD, dyslipidemia, hypothyroidism , hypertension, osteoarthritis, status post prostatectomy. Current Medications: Medications Dose Route/Sig Max Daily Dose Days Date Category Dose Instructions Levothyroxine Sodium 100 Mcg Tab 100 Mcg PO DAILY 06/17/17 Reported Prednisone 2.5 Mg Tab 1 Tab PO HS 30 06/12/17 Reported Humalog Kwikpen (Insulin Lispro (Human)) 100 Unit/Ml Inj 10 Units SC QAM 03/12/17 Reported IF BSG > 150 TAKES 10 UNITS, IF BSG HIGHER PT ADJUSTS DOSE ACCORDINGLY. Vitamin B12 (Cyanocobalamin) 1,000 Mcg Tab 1,000 Mcg PO BID 03/12/17 Reported Iron (Ferrous Sulfate) Unknown Strength Tab 120 Mg PO BID 03/12/17 Reported Prednisone 5 Mg Tab 5 Mg PO QDB 03/12/17 Reported Eliquis (Apixaban) 5 Mg Tab 5 Mg PO BID 02/07/17 Reported Toujeo Solostar (Insulin Glargine) 300 Unit/Ml Inj 55 Units HS 10/23/16 Reported K-Phos Neutral (Phosphorus) 250 Mg Tab 1 Tab PO DAILY 08/25/16 Reported Anti-Diarrheal (Loperamide Hcl) 2 Mg Cap 4 Mg PO PRN 03/07/16 Reported Prinivil (Lisinopril) 10 Mg Tab 10 Mg PO DAILY 11/13/15 Reported Lexapro (Escitalopram Oxalate) 10 Mg Tab 10 Mg PO DAILY AT 1500 11/13/15 Reported Toprol Xl (Metoprolol Succinate) 25 Mg Tab 25 Mg PO DAILY 12/12/14 Reported Calcium (Calcium Carbonate) 600 Mg Tab 1,200 Mg PO QPM 12/12/14 Reported Plavix (Clopidogrel Bisulfate) 75 Mg Tab 75 Mg PO DAILY 05/03/10 Reported Zantac (Ranitidine HCl) 150 Mg Tab 150 Mg PO BID PRN 05/03/10 Reported Lipitor (Atorvastatin Calcium) 80 Mg Tab 80 Mg PO HS 05/03/10 Reported Mag-Ox (Magnesium Oxide) 400 Mg Tab 1,200 Mg PO QPM 05/03/10 Reported Zyrtec (Cetirizine HCl) 10 Mg Tab 10 Mg PO PRN 05/18/09 Reported Allergies to Medications: Aspirin, penicillin. Social History: Patient is currently retired; he lives with his and feels safe in his home environment; he denies tobacco and alcohol use. Physical Examination: Vital Signs: Date Time Temp Pulse Resp B/P (MAP) Pulse Ox O2 Delivery O2 Flow Rate FiO2 06/17/17 21:50 52 20 142/75 96 06/17/17 21:10 53 20 147/76 97 Room Air 06/17/17 20:20 56 20 153/78 93 Room Air 06/17/17 18:57 62 20 155/74 96 Room Air 06/17/17 17:15 36.7 76 20 135/72 96 Room Air GENERAL: 76-year-old male in mild to moderate distress due to pain, nontoxic- appearing, afebrile and hemodynamically stable. NEUROLOGICAL: Awake, alert and oriented to person, place and time. Answering questions appropriately and following commands. Good hand eye coordination. No focal motor sensory deficits. SKIN: Warm, dry and pink. No soft tissue eruptions or trauma noted. HEENT: Atraumatic and normocephalic. Skull: No bony deformity, bony crepitus, swelling or ecchymosis. No raccoon's eyes or valente signs. No drainage in the ears of the nostril; no hemotympanum. Face: No bony tenderness, swelling or ecchymosis. PERRLA. EOMI without nystagmus. Funduscopic examination is unremarkable with no signs of increased intracranial pressure. Sclera white and conjunctiva pink. No malocclusion. Airway patent. Speech is normal. No lymphadenopathy. Trachea midline. No jugular venous distention. BACK: No tenderness over the bony cervical, thoracic and lumbar spine. No tenderness throughout the paraspinous muscles. No palpable spasm. Full range of motion of the cervical spine. No CVA tenderness. THORAX: Lungs sounds are clear to auscultation and equal bilaterally with symmetrical chest wall. No wheezing, rales or rhonchi. No crepitus, tenderness , subcutaneous air or deformities noted. HEART: Regular rate and rhythm. No gallops, rubs or murmurs are appreciated. ABDOMEN: Flat, soft and nontender. Positive bowel sounds in all quadrants. No guarding, rigidity or organomegaly. EXTREMITIES: Moves all extremities well on command and with purpose. All distal neurovascular statuses are intact and equal bilaterally. No calf tenderness or cords. ED Course: Patient is assessed as noted above. Patient's medication list was reviewed. Laboratory Testing: Test 06/17/17 18:23 06/17/17 18:25 Range/Units Bedside Glucose 147 70-99 mg/dl White Blood Count 5.37 4.8-10.8 K/uL Red Blood Count 3.72 4.7-6.1 M/uL Hemoglobin 11.0 14.0-18.0 g/dL Hematocrit 34.6 42-52 % Mean Corpuscular Volume 93.0 80-100 fL Mean Corpuscular Hemoglobin 29.6 25-34 pg Mean Corpuscular Hemoglobin Concent 31.8 32-36 g/dl Platelet Count 274 130-400 K/uL Mean Platelet Volume 10.1 7.4-10.4 fL Neutrophils (%) (Auto) 75.6 % Lymphocytes (%) (Auto) 10.6 % Monocytes (%) (Auto) 11.5 % Eosinophils (%) (Auto) 1.7 % Basophils (%) (Auto) 0.2 % Neutrophils # (Auto) 4.06 1.4-6.5 K/uL Lymphocytes # (Auto) 0.57 1.2-3.4 K/uL Monocytes # (Auto) 0.62 0.11-0.59 K/uL Eosinophils # (Auto) 0.09 0-0.5 K/uL Basophils # (Auto) 0.01 0-0.2 K/uL RDW Standard Deviation 53.2 36.4-46.3 fL RDW Coefficient of Variation 15.7 11.5-14.5 % Immature Granulocyte % (Auto) 0.4 % Immature Granulocyte # (Auto) 0.02 0.00-0.02 K/uL Prothrombin Time 10.4 9.0-12.0 SECONDS Prothromb Time International Ratio 1.0 0.9-1.1 Activated Partial Thromboplast Time 25.9 21.0-31.0 SECONDS Partial Thromboplastin Ratio 1.0 Sodium Level 140 136-145 mmol/L Potassium Level 3.9 3.5-5.1 mmol/L Chloride Level 108 98-107 mmol/L Carbon Dioxide Level 25 21-32 mmol/L Anion Gap 7.0 3-11 mmol/L Blood Urea Nitrogen 10 7-18 mg/dl Creatinine 0.74 0.60-1.40 mg/dl Est Creatinine Clear Calc Drug Dose 101.5 ml/min Estimated GFR () 103.8 Estimated GFR (Non- 89.6 BUN/Creatinine Ratio 13.5 10-20 Random Glucose 140 70-99 mg/dl Calcium Level 8.4 8.5-10.1 mg/dl Total Bilirubin 0.6 0.2-1 mg/dl Direct Bilirubin 0.1 0-0.2 mg/dl Aspartate Amino Transf (AST/SGOT) 11 15-37 U/L Alanine Aminotransferase (ALT/SGPT) 21 12-78 U/L Alkaline Phosphatase 106 45-117 U/L Total Protein 6.0 6.4-8.2 gm/dl Albumin 2.8 3.4-5.0 gm/dl Head CT: Was reviewed by myself and read by the radiologist showing no hemorrhage, mass effect, acute stroke or skull fractures. Cervical Spine CT: Was reviewed by myself and the radiologist and shows no evidence of acute fracture or subluxation. Osteopenia and spondylotic ranges were noted. CTA Brain and Neck: Were reviewed by myself and read by the radiologist and shows no hemorrhage, mass effect or acute ischemia, unremarkable CTA of the brain and neck. Patient was hydrated with normal saline and received 650 mg of acetaminophen IV and 2 mg of Valium IV. Patient was reassessed multiple times during his stay in the emergency department. Patient's case was reviewed with Dr. Gallego; she independently assessed the patient we agreed on diagnostic approach, treatment, disposition and plan. Patient was educated about today's findings and instructed on his treatment plan ; he verbalizes understanding and agreement with this plan. Clinical Impression: Acute headache. Acute neck pain. Decision-Making: Initially my differential diagnosis I considered intracranial bleed, mass effect, arterial dissection, concussion, metastasis, vertebral fracture, vertebral subluxation and other causes. Disposition: Patient discharged home in stable condition accompanied by his and son; prior to departure he was reassessed and subjectively reported that he was pain and symptom-free. Plan: Patient was encouraged to continue his current medications as prescribed. Patient was prescribed 2 mg of Valium every 6 hours as needed for neck pain/ stiffness; he was encouraged that if he felt too somnolent on this medication is to only use a half a tablet every 6 hours. Patient was encouraged use ice or heat on his neck as needed 5-6 times a day for 20-30 minutes. Patient was encouraged to use his walker at home versus his cane for better stability. Patient was encouraged to call his family physician in the morning and for request follow-up care and treatment. Patient was encouraged return ED for worsening headache, worsening neck pain, any abnormal neurological symptoms, fevers or any new/concerning symptoms. Return to the emergency department
[2017-07-02] MEDS ORDERED: ZNTT/150 PO (19:11)
[2017-07-02] MEDS ORDERED: CALC-354 (19:15)
[2017-07-02] MEDS ORDERED: APIX1TAB3 PO (19:15)
[2017-07-02] MEDS ORDERED: ACET1TAB84 PO (19:17)
[2017-07-02] MEDS ORDERED: HYDR-5688 PO (19:17)
[2017-08-21] MEDS ORDERED: DENOINJ IM (13:22)
[2017-08-21] MEDS ORDERED: LEUP30IN3 IM (13:22)
== END 2017-06-17 21:50 | disposition home or self-care (01) ==
LOC: C.EDB 16:56 → C.EDC 21:50
DX: R51 Headache (principal); M54.2 Cervicalgia; I48.0 Paroxysmal atrial fibrillation; E11.9 Type 2 diabetes mellitus without complications; I25.10 Atherosclerotic heart disease of native coronary artery without angina pectoris; R29.6 Repeated falls; E78.5 Hyperlipidemia, unspecified; E03.9 Hypothyroidism, unspecified; I10 Essential (primary) hypertension; Z85.46 Personal history of malignant neoplasm of prostate; Z95.1 Presence of aortocoronary bypass graft; Z79.02 Long term (current) use of antithrombotics/antiplatelets; Z79.4 Long term (current) use of insulin; Z79.899 Other long term (current) drug therapy

== ENCOUNTER → 2017-06-21 | Outpatient (CLI) | payer OTHER, MEDICARE ==
[~2017-06-21] MED LIST changes: +ACET1TAB84 PO; +CALC-354; +DENOINJ IM; +DIAZ2TAB PO; +HYDR-5688 PO; +LEUP30IN3 IM; +LEVO100T7 PO; -LEVO75TA5 PO
[2017-06-21 13:42] LABS: ALT/SGPT 24 U/L (12-78); AST/SGOT 11 U/L (15-37); BLOOD UREA NITROGEN 14 mg/dl (7-18); BUN/CREATININE RATIO 15.6 (10-20); CARBON DIOXIDE 27 mmol/L (21-32); CHLORIDE 105 mmol/L (98-107); CREATININE 0.87 mg/dl (0.60-1.40); GLUCOSE 223 mg/dl (70-99); POTASSIUM 4.1 mmol/L (3.5-5.1); SODIUM 139 mmol/L (136-145)
[2017-06-21 13:52] LABS: ALB/GLOB RATIO 0.8 (0.9-2); ALKALINE PHOSPHATASE 151 U/L (45-117)
[2017-06-21 14:37] LABS: ESTIMATED AVERAGE GLUCOSE 263 mg/dl; HA1C FLAG Normal (Normal)
[2017-06-21 17:16] LABS: LYME DISEASE AB IGG NEG (NEG); LYME DISEASE AB IGM NEG (NEG)
== END | disposition home or self-care (01) ==
LOC: C.LABBC 11:51
PROVIDERS: ATTEND Physician Assistant Medical
DX: I10 Essential (primary) hypertension (principal); I25.10 Atherosclerotic heart disease of native coronary artery without angina pectoris; I48.0 Paroxysmal atrial fibrillation; E03.9 Hypothyroidism, unspecified; D64.9 Anemia, unspecified; F32.9 Major depressive disorder, single episode, unspecified; E11.65 Type 2 diabetes mellitus with hyperglycemia; G62.9 Polyneuropathy, unspecified; R51 Headache

== ENCOUNTER 2017-11-27 15:39 | Inpatient (IN) | payer OTHER, MEDICARE ==
[~2017-11-27] VITALS: Ht 175.3 cm; Wt 100.1 kg
[~2017-11-27 15:39] MED LIST changes: -CALC-393 PO; -DIAZ2TAB PO; +METO-478 PO; -METO1TAB31 PO; -PRD/25 PO
[2017-11-27] MEDS ORDERED: DIPHTHERIA/TETANUS/PERTUSSIS 0.5 ML SYR/VIAL IM. ONE (16:15)
--- NOTE | 2017-11-27 16:26 | EMERGENCY ROOM VISIT NOTE ---
History Report prepared by Pierre: Boubacar Dykes Under the Supervision of: Dr. Krishna Mcmahon M.D. 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 Positive right knee pain and skin tears to his right arm. Negative known loss of consciousness, stroke-like symptoms, fevers, headache, abdominal pain, back pain, hip pain, weakness, or numbness. The patient was walking out to get his trash containers from the road. He brought them to his garage, and that is all he remembers. He woke up to a man helping him off of the ground. He then began complaining of his knee pain. He also has multiple skin tears to his right arm. He is unsure if he lost consciousness or hit his head. He recently went to the dentist which is why his mouth is swollen. He is on Eliquis for his previous heart attack. Source of History: patient Onset: 2 hours ago Position: other (Global) Symptom Intensity: mild Quality: other (Fall) Timing: resolved Associated Symptoms: No fevers, No headache, No abdominal pain, No back pain , No weakness, No numbness Note: He has right knee pain and skin tears to his right arm. Review of Systems See HPI for pertinent positives and negatives. A total of ten systems were reviewed and were otherwise negative. Past Medical & Surgical Medical Problems: (1) Anemia (2) Anticoagulated on Coumadin (3) Chest pain radiating to arm (4) Coronary artery disease with history of myocardial infarction without history of CABG (5) Diabetes (6) GERD (gastroesophageal reflux disease) (7) Hyperlipidemia (8) Hypertension (9) Hypothyroidism (10) Osteoarthritis (11) Paroxysmal atrial fibrillation (12) Prostate cancer Surgical Problems: (1) S/P prostatectomy (2) Stented coronary artery Family History Diabetes mellitus Hypertension Social History Smoking Status: Never Smoker Alcohol Use: none Drug Use: none Marital Status: Housing Status: lives with significant other Occupation Status: retired Current/Historical Medications Scheduled Apixaban (Eliquis), 5 MG PO BID Atorvastatin (Lipitor), 80 MG PO HS Calcium Carbonate-Cholecalcife (Caltrate 600+D), 1 TAB BID Clopidogrel (Plavix), 75 MG PO DAILY Cyanocobalamin (Vitamin B12), 1,000 MCG PO BID Escitalopram (Lexapro), 10 MG PO DAILY AT 1500 Ferrous Sulfate (Kp Ferrous Sulfate), 325 MG PO BID Insulin Glargine (Toujeo Solostar), 55 UNITS HS Insulin Lispro (Human) (Humalog Kwikpen), 1 DOSE SC BIDM Levothyroxine Sodium (Levothyroxine Sodium), 100 MCG PO DAILY Lisinopril (Prinivil), 10 MG PO DAILY Magnesium Oxide (Mag-Ox), 400 MG PO TID Metoprolol Succinate (Toprol Xl), 25 MG PO DAILY Pot Phosphate Monobasic W/ Sod (Phospha 250 Neutral), 1 TAB PO BID Prednisone (Prednisone), 5 MG PO BID Ranitidine (Zantac), 150 MG PO BID Allergies Coded Allergies: Penicillins (Verified Allergy, Mild, HIVE'S, 11/27/17) [place] (Verified Allergy, Mild, HIVES, 11/27/17) Aspirin (Verified Allergy, Unknown, HIVES, 11/27/17) Garden (Verified Allergy, Unknown, HIVES, 11/27/17) Tomato (Verified Allergy, Unknown, HIVES, 11/27/17) Uncoded Allergies: scramled and fried eggs (Adverse Reaction, Intermediate, diarrhea, 10/23/16 ) Physical Exam Vital Signs Date Time Temp Pulse Resp B/P (MAP) Pulse Ox O2 Delivery O2 Flow Rate FiO2 11/27/17 16:47 36.3 54 17 168/100 100 Room Air 11/27/17 16:43 100 Room Air 11/27/17 16:32 54 11/27/17 15:45 36.3 65 17 117/68 97 Room Air Physical Exam GENERAL: Awake, alert, well appearing, no distress HEAD: Normocephalic, atraumatic. No valente sign. No raccoon eyes. EYES: Normal conjunctiva. PERRL. EARS: External ears normal. Right TM normal. Left TM normal. NOSE: Atraumatic OROPHARYNX: Mild swelling to left lip. Granulation tissue to the left lip mucosa. No erythema or exudate. NECK: Supple. No tracheal deviation or JVD. No posterior midline c-spine tenderness. No step offs noted. RESPIRATORY: CTA bilaterally CARDIAC: Regular rate, normal rhythm. ABDOMEN: Soft, non distended. No tenderness to palpation. No hernias. Faint bruising over the abdomen of various ages. BACK: No midline step offs or tenderness to palpation. Unremarkable. PELVIS: Stable to rock. SKIN: Normal aside from the skin tears on the right forearm. LYMPH: No adenopathy. MUSCULOSKELETAL: Multiple skin tears to the right forearm that are hemostatic. NVI distally. No chest wall tenderness. Mild TTP to right medial knee. NVI distally. NEURO: GCS 15. Normal sensorium. No sensory or motor deficits noted. Medical Decision & Procedures ER Provider Diagnostic Interpretation: Radiology results as stated below per my review and radiologist interpretation: HEAD WITHOUT CONTRAST (CT) CLINICAL HISTORY: 77 years-old Male presenting with EVALUATE ALTERED MENTAL STATUS/WEAKNESS. TECHNIQUE: Multidetector CT imaging of the head was performed without the use of intravenous contrast. IV contrast: None. A dose lowering technique was used consistent with the principles of ALARA (as low as reasonably achievable). COMPARISON: 06/17/2017. CT DOSE (mGy.cm): The estimated cumulative dose is 1114.61 inclusive of the cervical spine. FINDINGS: Equities Analyst topogram: Cardiomegaly. Proportional ventricular and sulcal prominence, likely age-related parenchymal volume loss. Periventricular and subcortical white matter hypoattenuation, nonspecific but likely indicative of chronic small vessel ischemic change. No mass effect or midline shift. No hemorrhage or acute territorial infarct. No extra-axial fluid collection. Paranasal sinuses and mastoid air cells clear. Calvarium intact. Bilateral [place] lenses are absent. IMPRESSION: 1. Chronic small vessel ischemic change. No acute intracranial abnormality. Electronically signed by: Doroteo Rodriges M.D. 11/27/2017 5:31 PM Dictated Date/Time: 11/27/2017 5:29 PM CERVICAL SPINE W/O CT DOSE: 1114.61 mGy.cm CLINICAL HISTORY: 77 years-old Male with s/p fall. Acute neck injury status post fall COMPARISON: CTA of the neck 06/17/2017. TECHNIQUE: Multiple axial CT images of the cervical spine were obtained without contrast. A dose lowering technique was utilized adhering to the principles of ALARA. FINDINGS: Mastoid air cells and middle ear cavities are clear. No acute cervical spine fracture or subluxation identified. The bones appear to be mildly demineralized. Multilevel advanced intervertebral disc space narrowing with endplate spurring and moderate facet arthropathy. Multilevel posterior disc osteophyte complex formation without definite severe central canal stenosis identified. There are varying degrees of neural foraminal stenosis identified. Severe right-sided foraminal narrowing is seen on the right at C4-C5 and on the left at C5-C6. Lung apices are clear. Atherosclerosis of the carotid bulbs. No pathologic adenopathy identified. 3 mm calcification of the anterior left superficial parotid gland may reflect a sialolith. No acute intracranial abnormality identified. IMPRESSION: 1. No acute cervical spine fracture or subluxation identified. 2. Multilevel advanced intervertebral disc space narrowing with endplate spurring and multilevel moderate facet arthrosis. The above report was generated using voice recognition software. It may contain grammatical, syntax or spelling errors. Electronically signed by: Pedro Pablo Davis M.D. 11/27/2017 5:34 PM Dictated Date/Time: 11/27/2017 5:29 PM CHEST ONE VIEW PORTABLE CLINICAL HISTORY: 77 years-old Male presenting with EVALUATE ALTERED MENTAL STATUS/WEAKNESS. TECHNIQUE: Portable upright AP view of the chest was obtained. COMPARISON: 08/25/2016. FINDINGS: Atherosclerosis of aortic arch. Cardiac silhouette enlarged. Mildly low lung volumes with hypoventilatory changes. Lungs and pleural spaces otherwise clear. Degenerative changes of the thoracic spine. Upper abdomen normal. IMPRESSION: 1. Mildly low lung volumes with hypoventilatory changes. No focal infiltrate. 2. Cardiomegaly. Electronically signed by: Doroteo Rodriges M.D. 11/27/2017 6:00 PM Dictated Date/Time: 11/27/2017 5:59 PM R KNEE 3 VIEWS HISTORY: 77 years-old Male s/p fall, prior TKA acute right knee pain status post fall COMPARISON: None available TECHNIQUE: 3 views of the right knee FINDINGS: Bones appear mildly demineralized. Right knee arthroplasty with prior patellar resurfacing. No evidence of hardware complication or malalignment. Small joint effusion. No acute bony fracture or subluxation. Extensive peripheral vascular disease. Heterotopic ossifications are noted within the region of the MCL. IMPRESSION: 1. Small joint effusion without acute fracture or subluxation. 2. Right knee arthroplasty noted without complication. 3. Peripheral vascular disease. The above report was generated using voice recognition software. It may contain grammatical, syntax or spelling errors. Electronically signed by: Pedro Pablo Davis M.D. 11/27/2017 6:00 PM Dictated Date/Time: 11/27/2017 5:58 PM R FOREARM 2 VIEWS ROUTINE CLINICAL HISTORY: 77 years-old Male presenting with R forearm abasions s/p fall. TECHNIQUE: Frontal and lateral views of the right forearm are obtained. COMPARISON: None. FINDINGS: Degenerative changes of the elbow joint with joint space narrowing, osteophytosis, subchondral sclerosis, and cystic change suggested. Degenerative changes also suggested at the radiocarpal articulation though not as severe. Degenerative changes at the first carpometacarpal articulation. Prominent enthesophyte at the insertion of the triceps tendon. No acute osseous fracture or malalignment is evident allowing for limited evaluation with 2 views. Atherosclerosis. No radiographic soft tissue abnormality allowing for over penetration, which limits evaluation. IMPRESSION: No gross evidence of an acute osseous injury. Degenerative changes as above. Electronically signed by: Doroteo Rodriges M.D. 11/27/2017 6:14 PM Dictated Date/Time: 11/27/2017 6:11 PM Laboratory Results 11/27/17 16:41 Red Blood Count 3.75, Mean Corpuscular Volume 91.5, Mean Corpuscular Hemoglobin 29.1, Mean Corpuscular Hemoglobin Concent 31.8, Mean Platelet Volume 9.5, Neutrophils (%) (Auto) 80.6, Lymphocytes (%) (Auto) 9.3, Monocytes (%) (Auto) 8.5, Eosinophils (%) (Auto) 0.7, Basophils (%) (Auto) 0.2, Neutrophils # (Auto) 3.71, Lymphocytes # (Auto) 0.43, Monocytes # (Auto) 0.39, Eosinophils # (Auto) 0.03, Basophils # (Auto) 0.01 11/27/17 16:41 Test 11/27/17 16:41 11/27/17 16:51 White Blood Count 4.60 K/uL (4.8-10.8) Red Blood Count 3.75 M/uL (4.7-6.1) Hemoglobin 10.9 g/dL (14.0-18.0) Hematocrit 34.3 % (42-52) Mean Corpuscular Volume 91.5 fL (80-100) Mean Corpuscular Hemoglobin 29.1 pg (25-34) Mean Corpuscular Hemoglobin Concent 31.8 g/dl (32-36) Platelet Count 273 K/uL (130-400) Mean Platelet Volume 9.5 fL (7.4-10.4) Neutrophils (%) (Auto) 80.6 % Lymphocytes (%) (Auto) 9.3 % Monocytes (%) (Auto) 8.5 % Eosinophils (%) (Auto) 0.7 % Basophils (%) (Auto) 0.2 % Neutrophils # (Auto) 3.71 K/uL (1.4-6.5) Lymphocytes # (Auto) 0.43 K/uL (1.2-3.4) Monocytes # (Auto) 0.39 K/uL (0.11-0.59) Eosinophils # (Auto) 0.03 K/uL (0-0.5) Basophils # (Auto) 0.01 K/uL (0-0.2) RDW Standard Deviation 52.7 fL (36.4-46.3) RDW Coefficient of Variation 15.7 % (11.5-14.5) Immature Granulocyte % (Auto) 0.7 % Immature Granulocyte # (Auto) 0.03 K/uL (0.00-0.02) Prothrombin Time 9.9 SECONDS (9.0-12.0) Prothromb Time International Ratio 0.9 (0.9-1.1) Activated Partial Thromboplast Time 25.6 SECONDS (21.0-31.0) Partial Thromboplastin Ratio 1.0 Anion Gap 6.0 mmol/L (3-11) Est Creatinine Clear Calc Drug Dose 91.9 ml/min Estimated GFR () 102.6 Estimated GFR (Non- 88.5 BUN/Creatinine Ratio 17.5 (10-20) Calcium Level 8.3 mg/dl (8.5-10.1) Phosphorus Level 1.4 mg/dl (2.5-4.9) Magnesium Level 2.1 mg/dl (1.8-2.4) Total Bilirubin 0.5 mg/dl (0.2-1) Direct Bilirubin < 0.1 mg/dl (0-0.2) Aspartate Amino Transf (AST/SGOT) 11 U/L (15-37) Alanine Aminotransferase (ALT/SGPT) 20 U/L (12-78) Alkaline Phosphatase 368 U/L (45-117) Troponin I 0.018 ng/ml (0-0.045) Total Protein 6.6 gm/dl (6.4-8.2) Albumin 2.8 gm/dl (3.4-5.0) Thyroid Stimulating Hormone (TSH) 1.570 uIu/ml (0.300-4.500) Bedside Glucose 197 mg/dl (70-99) Laboratory results reviewed by me Medications Administered Medications (Trade) Dose Ordered Sig/Jean-Claude Route Start Time Stop Time Status Last Admin Dose Admin Diphtheria/ Pertussis/Tetanus Vacc (Adacel Inj) 0.5 ml ONCE ONCE IM. 11/27/17 16:15 11/27/17 16:16 DC 11/27/17 16:15 0.5 ML ECG Indication: other (Trauma) Rate (beats per minute): 55 Rhythm: sinus bradycardia Findings: Q waves (Inferior), other (normal intervals, normal axis) Comparison ECG Date: May 2017 Change: no significant change ED Course 1551: The patient was evaluated in room B5. A complete history and physical exam was performed. []: Upon reexamination, the patient was resting. I discussed the test results and treatment plan with him. I discussed the patient's case with [] of the [facility]. The patient will be evaluated for further management. 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 Positive right knee pain and skin tears to his right arm. Negative known loss of consciousness, stroke-like symptoms, fevers, headache, abdominal pain, back pain, hip pain, weakness, or numbness. Differential diagnosis: Etiologies such as fracture, dislocation, intra-abdominal, pneumothorax, intrathoracic , intracranial, neurologic, as well as other traumatic pathologies were entertained. Patient was seen and evaluated at the bedside. Patient did have a fall approximately 2 hours prior to arrival. Patient does not remember the whole event. There is a concern for possible syncope. Patient does have a prior history of prostate cancer with metastases to the bone and to see Dr. Ku with oncology. Patient also does have a fairly complex past medical history. Patient exam has no acute neurologic deficits. Patient denies any subjective complaints either. Patient is otherwise fairly well-appearing. Patient does have some skin tears of the right forearm does complain of some right knee pain without any obvious effusion or fracture. Patient did have blood work that was completed along with a CT of the head and C-spine along with plain films. Patient's plain films do not show any obvious fracture or dislocation. Patient' s CT of the head and C-spine are negative acute. Patient did receive a tetanus shot as it is not up-to-date. Patient's EKG was nonischemic. Patient did have some inferior Q waves which are old. He was bradycardic but no other abnormalities were noted. Patient does have some chronic anemia. Patient did have a critically low falls. I did speak with our pharmacist here in the department helped with replete Noah did order repletion IV. Given the concern of the patient's past medical history in addition to a questionable syncope and could not say with certainty that this was a mechanical fall, I did speak with the hospitalist who agreed to further evaluate and treat the patient. Head Trauma GCS Score: 15 Medication Reconcilliation Current Medication List: was personally reviewed by me Blood Pressure Screening Patient's blood pressure: Normal blood pressure Blood pressure disposition: Did not require urgent referral Consults Consulting Physician: [] - [facility] Discussed the patient's case. The patient will be evaluated for further treatment and disposition. Impression Primary Impression: Syncope Additional Impressions: Fall Right knee pain Anemia Hypophosphatemia Abrasion of right arm Scribe Attestation The scribe's documentation has been prepared under my direction and personally reviewed by me in its entirety. I confirm that the note above accurately reflects all work, treatment, procedures, and medical decision making performed by me. Departure Information Dispostion Being Evaluated By Hospitalist Referrals Van Valiente M.D. (PCP) Patient Instructions My [facility] Problem Qualifiers Primary Impression: Syncope Syncope type: unspecified Qualified Codes: R55 - Syncope and collapse Additional Impressions: Fall Encounter type: initial encounter Qualified Codes: W19.XXXA - Unspecified fall, initial encounter Right knee pain Chronicity: acute Qualified Codes: M25.561 - Pain in right knee Anemia Anemia type: unspecified type Qualified Codes: D64.9 - Anemia, unspecified Abrasion of right arm Encounter type: initial encounter Qualified Codes: S40.811A - Abrasion of right upper arm, initial encounter
[2017-11-27 16:59] LABS: BASO % 0.2 %; BASO ABS # 0.01 K/uL (0-0.2); EOS % 0.7 %; EOS ABS # 0.03 K/uL (0-0.5); HEMATOCRIT 34.3 % (42-52); HEMOGLOBIN 10.9 g/dL (14.0-18.0); IG# 0.03 K/uL (0.00-0.02); LYMPH % 9.3 %; LYMPH ABS # 0.43 K/uL (1.2-3.4); MEAN CELL VOLUME 91.5 fL (80-100); MEAN CORPUSCULAR HEMOGLOBIN 29.1 pg (25-34); MEAN CORPUSCULAR HGB CONC 31.8 g/dl (32-36); MEAN PLATELET VOLUME 9.5 fL (7.4-10.4); MONO % 8.5 %; MONO ABS # 0.39 K/uL (0.11-0.59); NEUT % 80.6 %; NEUT ABS # 3.71 K/uL (1.4-6.5); PLATELET COUNT 273 K/uL (130-400); RED CELL DISTRIBUTION WIDTH CV 15.7 % (11.5-14.5); RED CELL DISTRIBUTION WIDTH SD 52.7 fL (36.4-46.3)
[2017-11-27 17:01] LABS: INR 0.9 (0.9-1.1); PTT PATIENT 25.6 SECONDS (21.0-31.0)
[2017-11-27 17:17] LABS: ALBUMIN 2.8 gm/dl (3.4-5.0); ALT/SGPT 20 U/L (12-78); AST/SGOT 11 U/L (15-37); BLOOD UREA NITROGEN 13 mg/dl (7-18); CALCIUM 8.3 mg/dl (8.5-10.1); CARBON DIOXIDE 24 mmol/L (21-32); CREATININE 0.75 mg/dl (0.60-1.40); GLUCOSE 183 mg/dl (70-99); POTASSIUM 4.1 mmol/L (3.5-5.1); SODIUM 135 mmol/L (136-145)
[2017-11-27] MEDS ORDERED: POTTAB2 PO (17:23)
[2017-11-27] MEDS ORDERED: FERR1TAB13 PO (17:23)
[2017-11-27 17:33] LABS: ALKALINE PHOSPHATASE 368 U/L (45-117); PHOSPHORUS 1.4 mg/dl (2.5-4.9); TOTAL PROTEIN 6.6 gm/dl (6.4-8.2)
--- NOTE | 2017-11-27 17:33 | DIAGNOSTIC IMAGING REPORT ---
HEAD WITHOUT CONTRAST (CT) CLINICAL HISTORY: 77 years-old Male presenting with EVALUATE ALTERED MENTAL STATUS/WEAKNESS. TECHNIQUE: Multidetector CT imaging of the head was performed without the use of intravenous contrast. IV contrast: None. A dose lowering technique was used consistent with the principles of ALARA (as low as reasonably achievable). COMPARISON: 06/17/2017. CT DOSE (mGy.cm): The estimated cumulative dose is 1114.61 inclusive of the cervical spine. FINDINGS: Healthcare Administrative Assistant topogram: Cardiomegaly. Proportional ventricular and sulcal prominence, likely age-related parenchymal volume loss. Periventricular and subcortical white matter hypoattenuation, nonspecific but likely indicative of chronic small vessel ischemic change. No mass effect or midline shift. No hemorrhage or acute territorial infarct. No extra-axial fluid collection. Paranasal sinuses and mastoid air cells clear. Calvarium intact. Bilateral [place] lenses are absent. IMPRESSION: 1. Chronic small vessel ischemic change. No acute intracranial abnormality. Electronically signed by: Doroteo Rodriges M.D. 11/27/2017 5:31 PM Dictated Date/Time: 11/27/2017 5:29 PM
--- NOTE | 2017-11-27 17:35 | DIAGNOSTIC IMAGING REPORT ---
CERVICAL SPINE W/O CT DOSE: 1114.61 mGy.cm CLINICAL HISTORY: 77 years-old Male with s/p fall. Acute neck injury status post fall COMPARISON: CTA of the neck 06/17/2017. TECHNIQUE: Multiple axial CT images of the cervical spine were obtained without contrast. A dose lowering technique was utilized adhering to the principles of ALARA. FINDINGS: Mastoid air cells and middle ear cavities are clear. No acute cervical spine fracture or subluxation identified. The bones appear to be mildly demineralized. Multilevel advanced intervertebral disc space narrowing with endplate spurring and moderate facet arthropathy. Multilevel posterior disc osteophyte complex formation without definite severe central canal stenosis identified. There are varying degrees of neural foraminal stenosis identified. Severe right-sided foraminal narrowing is seen on the right at C4-C5 and on the left at C5-C6. Lung apices are clear. Atherosclerosis of the carotid bulbs. No pathologic adenopathy identified. 3 mm calcification of the anterior left superficial parotid gland may reflect a sialolith. No acute intracranial abnormality identified. IMPRESSION: 1. No acute cervical spine fracture or subluxation identified. 2. Multilevel advanced intervertebral disc space narrowing with endplate spurring and multilevel moderate facet arthrosis. The above report was generated using voice recognition software. It may contain grammatical, syntax or spelling errors. Electronically signed by: Pedro Pablo Davis M.D. 11/27/2017 5:34 PM Dictated Date/Time: 11/27/2017 5:29 PM
--- NOTE | 2017-11-27 18:01 | DIAGNOSTIC IMAGING REPORT ---
R KNEE 3 VIEWS HISTORY: 77 years-old Male s/p fall, prior TKA acute right knee pain status post fall COMPARISON: None available TECHNIQUE: 3 views of the right knee FINDINGS: Bones appear mildly demineralized. Right knee arthroplasty with prior patellar resurfacing. No evidence of hardware complication or malalignment. Small joint effusion. No acute bony fracture or subluxation. Extensive peripheral vascular disease. Heterotopic ossifications are noted within the region of the MCL. IMPRESSION: 1. Small joint effusion without acute fracture or subluxation. 2. Right knee arthroplasty noted without complication. 3. Peripheral vascular disease. The above report was generated using voice recognition software. It may contain grammatical, syntax or spelling errors. Electronically signed by: Pedro Pablo Davis M.D. 11/27/2017 6:00 PM Dictated Date/Time: 11/27/2017 5:58 PM
--- NOTE | 2017-11-27 18:02 | DIAGNOSTIC IMAGING REPORT ---
CHEST ONE VIEW PORTABLE CLINICAL HISTORY: 77 years-old Male presenting with EVALUATE ALTERED MENTAL STATUS/WEAKNESS. TECHNIQUE: Portable upright AP view of the chest was obtained. COMPARISON: 08/25/2016. FINDINGS: Atherosclerosis of aortic arch. Cardiac silhouette enlarged. Mildly low lung volumes with hypoventilatory changes. Lungs and pleural spaces otherwise clear. Degenerative changes of the thoracic spine. Upper abdomen normal. IMPRESSION: 1. Mildly low lung volumes with hypoventilatory changes. No focal infiltrate. 2. Cardiomegaly. Electronically signed by: Doroteo Rodriges M.D. 11/27/2017 6:00 PM Dictated Date/Time: 11/27/2017 5:59 PM
[2017-11-27] MEDS ORDERED: SODIUM PHOSPHATE INJ 30 MMOL in SODIUM CHLORIDE 0.9% 500ML 500 ML IV ONE (18:15)
--- NOTE | 2017-11-27 18:16 | DIAGNOSTIC IMAGING REPORT ---
R FOREARM 2 VIEWS ROUTINE CLINICAL HISTORY: 77 years-old Male presenting with R forearm abasions s/p fall. TECHNIQUE: Frontal and lateral views of the right forearm are obtained. COMPARISON: None. FINDINGS: Degenerative changes of the elbow joint with joint space narrowing, osteophytosis, subchondral sclerosis, and cystic change suggested. Degenerative changes also suggested at the radiocarpal articulation though not as severe. Degenerative changes at the first carpometacarpal articulation. Prominent enthesophyte at the insertion of the triceps tendon. No acute osseous fracture or malalignment is evident allowing for limited evaluation with 2 views. Atherosclerosis. No radiographic soft tissue abnormality allowing for over penetration, which limits evaluation. IMPRESSION: No gross evidence of an acute osseous injury. Degenerative changes as above. Electronically signed by: Doroteo Rodriges M.D. 11/27/2017 6:14 PM Dictated Date/Time: 11/27/2017 6:11 PM
[2017-11-27] MEDS ORDERED: CITALOPRAM 20 MG TAB PO STA (18:43)
[2017-11-27] MEDS ORDERED: MoRPHine SULFATE 2 MG/ML CARP IV PRN (21:00)
[2017-11-27] MEDS ORDERED: MAGNESIUM HYDROXIDE SUSP 30 ML UDC PO PRN (21:00)
[2017-11-27] MEDS ORDERED: ALUMINUM/MAGNESIUM/SIMETH (MAALOX MAX) 30 ML UDC PO PRN (21:00)
[2017-11-27] MEDS ORDERED: ONDANSETRON INJ 2 MG/ML 2 ML VIAL IV PRN (21:00)
[2017-11-27] MEDS ORDERED: ACETAMINOPHEN 325 MG TAB PO PRN (21:00)
[2017-11-27] MEDS ORDERED: POLYETHYLENE (MIRALAX) 17 GM PACK PO PRN (21:00)
--- NOTE | 2017-11-27 21:21 | History and Physical ---
History & Physical Date & Time of Service: Nov 27, 2017 at 20:37 Chief Complaint: Fall On Arm,Cut Primary Care Physician: Van Valiente M.D. History of Present Illness Source: patient 77 y/o M Hx CAD, PAF, DM, prostate CA, HTN, HPL, anemia. The pt presents following a likely syncopal episode. He states that he has been feeling overly tired and lightheaded since . He slept for 17 hours 2 days ago. Today he was taking out the trash and next found himself on the ground with a neighbor trying to help him out. He likely lost consciousness prior to falling but does not have any recollection aside from feeling lightheaded. He suffered several superficial skin tears on his R arm as a result of his fall. He does not believe he suffered any head trauma. He denies CP, SOB, N/V, dysuria or fevers. Initial labs are notable for hypophosphatemia. The pt was bradycardic with a rate of 50 on arrival to the ER. He states his HR is normally in the 60s. It is noted that the pt takes daily prednisone. Per his , he was placed on prednisone for chronic weakness and has not been able to discontinue the medication as he develops severe weakness every time he tries. On review of records, it appears that steroids were started as an adjunctive treatment for prostate CA along with hormonal suppression in 2013. The pt reports that he had a wisdom tooth filling one day prior - this was initially intended for extraction, however, the oral surgeon deferred due to Eliquis and prednisone use per the pt's . He returned to his dentist and received a filling instead. 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 He received 3000 cGy. Surgical: 1) Prostatectomy 2) CABG Family History Diabetes mellitus Hypertension Social History Smoking Status: Never Smoker Drug Use: none Marital Status: Housing status: lives with family Occupational Status: retired Immunizations History of Influenza Vaccine: No History of Tetanus Vaccine?: YEARS AGO History of Pneumococcal: No History of Hepatitis B Vaccine: No Multi-Drug Resistant Organisms History of MDRO: No Allergies Coded Allergies: Penicillins (Verified Allergy, Mild, HIVE'S, 11/27/17) [place] (Verified Allergy, Mild, HIVES, 11/27/17) Aspirin (Verified Allergy, Unknown, HIVES, 11/27/17) [place] (Verified Allergy, Unknown, HIVES, 11/27/17) Tomato (Verified Allergy, Unknown, HIVES, 11/27/17) Uncoded Allergies: scramled and fried eggs (Adverse Reaction, Intermediate, diarrhea, 10/23/16 ) Home Medications Scheduled Apixaban (Eliquis), 5 MG PO BID Atorvastatin (Lipitor), 80 MG PO HS Calcium Carbonate-Cholecalcife (Caltrate 600+D), 1 TAB BID Clopidogrel (Plavix), 75 MG PO DAILY Cyanocobalamin (Vitamin B12), 1,000 MCG PO BID Escitalopram (Lexapro), 10 MG PO DAILY AT 1500 Ferrous Sulfate (Kp Ferrous Sulfate), 325 MG PO BID Insulin Glargine (Toujeo Solostar), 55 UNITS HS Insulin Lispro (Human) (Humalog Kwikpen), 1 DOSE SC BIDM Levothyroxine Sodium (Levothyroxine Sodium), 100 MCG PO DAILY Lisinopril (Prinivil), 10 MG PO DAILY Magnesium Oxide (Mag-Ox), 400 MG PO TID Metoprolol Succinate (Toprol Xl), 25 MG PO DAILY Pot Phosphate Monobasic W/ Sod (Phospha 250 Neutral), 1 TAB PO BID Prednisone (Prednisone), 5 MG PO BID Ranitidine (Zantac), 150 MG PO BID Review of Systems Constitutional: + weakness, No fever, No chills, No sweats Eyes: No worsening of vision ENT: No hearing loss, No unusual epistaxis, No nasal symptoms Respiratory: No cough, No wheezing Cardiovascular: No chest pain, No orthopnea, No PND Abdomen: No pain, No nausea, No vomiting Musculoskeletal: No joint pain Genitourinary - Male: No hematuria, No dysuria Neurologic: + weakness, No memory loss, No paralysis Psychiatric: No depression symptoms Endocrine: + fatigue Hematologic / Lymphatic: No abnormal bleeding/bruising Integumentary: + problem reported (Multiple skin tears R arm), No rash Allergic / Immunologic: No environmental allergies Physical Exam Vital Signs Date Time Temp Pulse Resp B/P (MAP) Pulse Ox O2 Delivery O2 Flow Rate FiO2 11/27/17 19:12 36.3 51 17 157/77 100 Room Air 11/27/17 17:00 36.3 54 17 168/100 100 Room Air 11/27/17 16:47 36.3 54 17 168/100 100 Room Air 11/27/17 16:43 100 Room Air 11/27/17 16:32 54 11/27/17 15:45 36.3 65 17 117/68 97 Room Air General Appearance: WD/WN Head: normocephalic Eyes: normal inspection, EOMI ENT: normal ENT inspection, pharynx normal Neck: supple, no JVD Respiratory/Chest: chest non-tender, lungs clear, normal breath sounds Cardiovascular: no edema, no gallop, no JVD, no murmur, + bradycardia Abdomen/GI: normal bowel sounds, non tender, soft Back: normal inspection, no CVA tenderness Extremities/Musculoskelatal: normal inspection, no calf tenderness, normal capillary refill 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6 % Lymphocytes (%) (Auto) 9.3 % Monocytes (%) (Auto) 8.5 % Eosinophils (%) (Auto) 0.7 % Basophils (%) (Auto) 0.2 % Neutrophils # (Auto) 3.71 1.4-6.5 K/uL Lymphocytes # (Auto) 0.43 1.2-3.4 K/uL Monocytes # (Auto) 0.39 0.11-0.59 K/uL Eosinophils # (Auto) 0.03 0-0.5 K/uL Basophils # (Auto) 0.01 0-0.2 K/uL RDW Standard Deviation 52.7 36.4-46.3 fL RDW Coefficient of Variation 15.7 11.5-14.5 % Immature Granulocyte % (Auto) 0.7 % Immature Granulocyte # (Auto) 0.03 0.00-0.02 K/uL Prothrombin Time 9.9 9.0-12.0 SECONDS Prothromb Time International Ratio 0.9 0.9-1.1 Activated Partial Thromboplast Time 25.6 21.0-31.0 SECONDS Partial Thromboplastin Ratio 1.0 Sodium Level 135 136-145 mmol/L Potassium Level 4.1 3.5-5.1 mmol/L Chloride Level 105 98-107 mmol/L Carbon Dioxide Level 24 21-32 mmol/L Anion Gap 6.0 3-11 mmol/L Blood Urea Nitrogen 13 7-18 mg/dl Creatinine 0.75 0.60-1.40 mg/dl Est Creatinine Clear Calc Drug Dose 91.9 ml/min Estimated GFR () 102.6 Estimated GFR (Non- 88.5 BUN/Creatinine Ratio 17.5 10-20 Random Glucose 183 70-99 mg/dl Calcium Level 8.3 8.5-10.1 mg/dl Phosphorus Level 1.4 2.5-4.9 mg/dl Magnesium Level 2.1 1.8-2.4 mg/dl Total Bilirubin 0.5 0.2-1 mg/dl Direct Bilirubin < 0.1 0-0.2 mg/dl Aspartate Amino Transf (AST/SGOT) 11 15-37 U/L Alanine Aminotransferase (ALT/SGPT) 20 12-78 U/L Alkaline Phosphatase 368 45-117 U/L Troponin I 0.018 0-0.045 ng/ml Total Protein 6.6 6.4-8.2 gm/dl Albumin 2.8 3.4-5.0 gm/dl Thyroid Stimulating Hormone (TSH) 1.570 0.300-4.500 uIu/ml Bedside Glucose 197 70-99 mg/dl Urine Color YELLOW Urine Appearance CLEAR CLEAR Urine pH 7.5 4.5-7.5 Urine Specific [place] 1.018 1.000-1.030 Urine Protein NEG NEG Urine Glucose (UA) TRACE NEG Urine Ketones NEG NEG Urine Occult Blood NEG NEG Urine Nitrite NEG NEG Urine Bilirubin NEG NEG Urine Urobilinogen NEG NEG Urine Leukocyte Esterase NEG NEG EKG Sinus nicky - 50BPM - LVH Impression Assessment and Plan 77 y/o M Hx CAD, PAF, DM, prostate CA, HTN, HPL, anemia. The pt presents following a likely syncopal episode. He states that he has been feeling overly tired and lightheaded since . He slept for 17 hours 2 days ago. Today he was taking out the trash and next found himself on the ground with a neighbor trying to help him out. He likely lost consciousness prior to falling but does not have any recollection aside from feeling lightheaded. He suffered several superficial skin tears on his R arm as a result of his fall. He does not believe he suffered any head trauma. He denies CP, SOB, N/V, dysuria or fevers. Initial labs are notable for hypophosphatemia. The pt was bradycardic with a rate of 50 on arrival to the ER. He states his HR is normally in the 60s. It is noted that the pt takes daily prednisone. Per his , he was placed on prednisone for chronic weakness and has not been able to discontinue the medication as he develops severe weakness every time he tries. 1) Syncope - lightheadedness - possibly related to bradycardia - he is stable on the monitor with a rate of 50. We will assign the pt to telemetry, hold his Bblocker and request a cardiology consult. Additional workup will be deferred for AM evaluation to avoid repeating recent studies. Orthostatics will be checked with vitals. 2) Weakness/fatigue. Appears to be acute on chronic - may be related to bradycardia and hypophosphatemia - phos will be replaced - PT/OT eval requested. Bblocker held. We will check a cortisol level as well due to chronic prednisone use. 3) DM - placed on SS 4) PAF - sinus rhythm on admission - Bblocker - anticoagulated with Eliquis 5) CAD - no evidence of ACS - cont Statin, Plavix 6) HTN - continue Lisinopril 7) Chronic anemia - Hb is at baseline - cont Iron 8) Prostate CA - metastatic to bone - current status unclear - last treated with Xofigo and palliative radiation to the lumbar spine 07/11 Full code - Anticoagulated with Eliquis Total time for this admit including review of labs, meds, imaging - discussion with pt and ER attending - 39 min Level of Care Telemetry Resuscitation Status FULL RESUSCITATION VTE Prophylaxis Given or contraindicated: Other Anticoagulation
[2017-11-27 22:23] VITALS: BP 193/67; PULSE 58; TEMP 36.5; O2SAT 99; BMI 29.6
[2017-11-27 23:34] VITALS: BP_SYST 143; BP_SYST 161; BP_DIAS 69; BP_DIAS 74; BP_DIAS 75; PULSE 48; PULSE 57; PULSE 61; TEMP 36.7; O2SAT 97
[2017-11-27] MEDS ORDERED: IV FLUIDS COMPLETED PRN (23:45)
[2017-11-28] VITALS (8 sets, daily range): BP systolic 118–151; BP diastolic 58–77; PULSE 46–86; TEMP 36.7–37.3; O2SAT 94–96; BMI 30.8
[2017-11-28] MEDS ORDERED: INSULIN GLARGINE SOLOSTAR 100 UNITS/ML 3 ML PEN SQ ONE ×2 (03:00→21:00)
[2017-11-28] MEDS ORDERED: GLUCOSE 10 TABS/TUBE PO PRN (03:00)
[2017-11-28] MEDS ORDERED: DEXTROSE 50% 50 ML SYR IV PRN (03:00)
[2017-11-28] MEDS ORDERED: GLUCAGON FOR INJ 1 MG VIAL SQ PRN (03:00)
[2017-11-28] MEDS ORDERED: GLUCOSE 40% GEL 15 GM TUBE PO PRN (03:00)
[2017-11-28] MEDS: INSULIN ASPART 100 UNITS/ML 3 ML PEN SC SCH ×4 (07:00→21:16)
[2017-11-28] MEDS: LEVOTHYROXINE 100 MCG TAB PO SCH (07:06)
[2017-11-28] MEDS: CYANOCOBALAMIN 500 MCG TAB (VIT B-12) PO SCH ×2 (07:26→21:14)
[2017-11-28] MEDS: MAGNESIUM OXIDE 400 MG TAB PO SCH ×3 (07:26→21:14)
[2017-11-28] MEDS: ESCITALOPRAM OXALATE 10 MG TAB PO SCH (07:27)
[2017-11-28] MEDS: FERROUS SULFATE 325 MG TAB PO SCH ×2 (07:27→21:18)
[2017-11-28] MEDS: CALCIUM 600MG + VIT D 400 IU TAB PO SCH ×2 (07:27→21:14)
[2017-11-28] MEDS: LISINOPRIL 10 MG TAB PO SCH (07:27)
[2017-11-28] MEDS: CLOPIDOGREL BISULFATE 75 MG TAB PO SCH (07:27)
[2017-11-28 07:28] LABS: CALCIUM 7.7 mg/dl (8.5-10.1); CREATININE 0.64 mg/dl (0.60-1.40); PHOSPHORUS 3.4 mg/dl (2.5-4.9); POTASSIUM 3.2 mmol/L (3.5-5.1)
[2017-11-28] MEDS: POT PHOSPHATE MONOBASIC W/ SOD TAB PO SCH ×2 (07:28→21:14)
[2017-11-28] MEDS: RANITIDINE HCL 150 MG TAB PO SCH ×2 (07:28→21:14)
[2017-11-28] MEDS ORDERED: POTASSIUM CHLORIDE 10 MEQ TABCR PO STA (08:54)
[2017-11-28] MEDS ORDERED: METOPROLOL SUCC 25MG EXT REL TAB PO SCH (09:00)
[2017-11-28] MEDS ORDERED: APIXABAN 2.5 MG TAB PO SCH (09:00)
--- NOTE | 2017-11-28 09:34 | Cardiology Consultation ---
Cardiology Consultation Date of Service Nov 28, 2017. (Margarita Barakat PA-C) 11/28/17. (Kenji Red,D.O.) Cardiology Consultation Requesting Physician: Dr. Gordon Attending Static Balancer Dr. Rde HPI: This is a 77-year-old male known to [facility] cardiology with history of CAD, s/p acute anterior TX with Vfib arrest in 2009 receiving LAD BMS. He had remote PAF at the time and has been anticoagulated with Coumadin now Eliquis. Other history includes metastatic stage IV prostate cancer now in ribs/sternum Patient states he was in normal state of health yesterday. He walked outside to get his garbage cans and upon returning to the house, he had sudden onset weakness with questionable syncope/near syncope. He remembers sliding down siding of his house. He thinks he lost consciousness but remembers getting himself up enough to try and ring doorbell to alert . He suffered skin tear on arm from the siding. No head injury. No incontinence. No chest pain or SOB. He was lightheaded after event, but does not recall being lightheaded during or prior to event. He notes he has had about 5 falls/weak spells in the last few months. he hit his head several months ago in one fall. No evaluation at that that time. he recalls having a "syncopal" spell this summer walking in the parking lot at PCP office. He sustained significant leg laceration at that time. At time of consult, patient feeling well. no complaints of dizziness, syncope or near syncope since admission. No chest pain or SOB. On admission HR in the 50's. Telemetry reviewed overnight and demonstrated sinus bradycardia in the 40's during times of sleep. Currently NSR in the 60's. Beta carmelo held. Mild orthostatic hypotension on vital signs. Upon review of outpatient EKG's over the last several years, HR ranging 52-62 bpm. Cardiac History:February 24, 2010 acute anterior wall TX complicated by ventricular fibrillation arrest shortly after presenting to [facility] via personal vehicle - s/p successful defibrillation, atherothrombectomy, and PCI of the mid LAD with a bare metal stent. Troponin I peaked at 17.3. EF 40% by LV gram with mid, anterior, anteroapical, and inferoapical akinesis. Due to the apical hypokinesis as well as preceding history of paroxysmal atrial fibrillation and hypercoagulable state he was discharged on Coumadin anticoagulation for stroke prevention. He has now been transitioned to Eliquis. He is not on ASA secondary to an allergy including hives/wheezing. Medical Problems: (1) Anemia (2) Anticoagulated on Coumadin (3) Chest pain radiating to arm (4) Coronary artery disease with history of myocardial infarction without history of CABG (5) Diabetes (6) GERD (gastroesophageal reflux disease) (7) Hyperlipidemia (8) Hypertension (9) Hypophosphatemia (10) Hypothyroidism (11) Osteoarthritis (12) Paroxysmal atrial fibrillation (13) Prostate cancer Surgical Problems: (1) S/P prostatectomy (2) Stented coronary artery Social history: No history of alcohol. Tobacco abuse. . Lives with . Family History: Non contributory Review of patient's allergies indicates: Allergen Reactions Aspirin Hives and Wheezing Eggs Or Egg-Derived Products Hives Penicillins Hives Soybeans Hives [place] Extract Hives Tomato Hives Reported Home Medications Medications Dose Route/Sig Max Daily Dose Days Date Category Dose Instructions Phospha 250 Neutral (Pot Phosphate Monobasic W/ Sod) 1 Tab Tab 1 Tab PO BID 11/27/17 Reported Kp Ferrous Sulfate (Ferrous Sulfate) 325 Mg Tab 325 Mg PO BID 30 11/27/17 Reported Caltrate 600+D (Calcium Carbonate-Cholecalcife) 1 Tab Tab 1 Tab BID 07/02/17 Reported Zantac (Ranitidine HCl) 150 Mg Tab 150 Mg PO BID 07/02/17 Reported Levothyroxine Sodium 100 Mcg Tab 100 Mcg PO DAILY 06/17/17 Reported Humalog Kwikpen (Insulin Lispro (Human)) 100 Unit/Ml Inj 1 Dose SC BIDM 03/12/17 Reported PER SLIDING SCALE Vitamin B12 (Cyanocobalamin) 1,000 Mcg Tab 1,000 Mcg PO BID 03/12/17 Reported Prednisone 5 Mg Tab 5 Mg PO BID 03/12/17 Reported Eliquis (Apixaban) 5 Mg Tab 5 Mg PO BID 02/07/17 Reported Toujeo Solostar (Insulin Glargine) 300 Unit/Ml Inj 55 Units HS 10/23/16 Reported Prinivil (Lisinopril) 10 Mg Tab 10 Mg PO DAILY 11/13/15 Reported Lexapro (Escitalopram Oxalate) 10 Mg Tab 10 Mg PO DAILY AT 1500 11/13/15 Reported Toprol Xl (Metoprolol Succinate) 25 Mg Tab 25 Mg PO DAILY 12/12/14 Reported Plavix (Clopidogrel Bisulfate) 75 Mg Tab 75 Mg PO DAILY 05/03/10 Reported Lipitor (Atorvastatin Calcium) 80 Mg Tab 80 Mg PO HS 05/03/10 Reported Mag-Ox (Magnesium Oxide) 400 Mg Tab 400 Mg PO TID 05/03/10 Reported Physical Exam: Last 8 Hrs Date Time Temp Pulse Resp B/P (MAP) Pulse Ox O2 Delivery O2 Flow Rate FiO2 11/28/17 08:06 36.7 55 20 134/71 (92) 96 Room Air 11/28/17 08:00 94 Room Air 11/28/17 03:41 Room Air 11/28/17 03:41 37.0 46 18 144/58 (86) 94 Room Air General: no acute distress and stated age Head: normocephalic, no masses, lesions, tenderness or abnormalities Eyes: conjunctiva are pink and non-injected, sclera clear Neck: supple, no adenopathy, no bruits, normal jugular venous pulse, no hepatojugular reflux Chest: normal shape and normal respiratory effort Lungs: clear to auscultation and percussion Cardiac Exam: - regular rate & rhythm, no murmurs gallops or rubs - normal S1, normal S2 Pulses: 2(+) throughout Abdomen: abdomen soft, non-tender, no abnormal masses and no hepatosplenomegaly Musculoskeletal: no gait disturbance, no joint inflammation, no deforming arthritis Extremities: no edema and no cyanosis Neuro: grossly normal exam DATA: Telemetry reviewed - NSR and Sinus bradycardia in the 50's. Sinus bradycardia in the 40's during times of sleep. occ PVC. No symptoms. No pauses or high degree AV block. EKG on admission reviewed - Sinus bradycardia Moderate voltage criteria for LVH, may be normal variant Inferior infarct (cited on or before 17-JUN-2017) Abnormal ECG When compared with ECG of 17-JUN-2017 18:17, Premature ventricular complexes are no longer Present Imaging: Chest xray reviewed - IMPRESSION: 1. Mildly low lung volumes with hypoventilatory changes. No focal infiltrate. 2. Cardiomegaly Head CT: IMPRESSION: 1. Chronic small vessel ischemic change. No acute intracranial abnormality. Labs: Last 24 Hours Test 11/27/17 16:41 11/27/17 16:51 11/27/17 20:15 11/27/17 22:56 White Blood Count 4.60 K/uL Red Blood Count 3.75 M/uL Hemoglobin 10.9 g/dL Hematocrit 34.3 % Mean Corpuscular Volume 91.5 fL Mean Corpuscular Hemoglobin 29.1 pg Mean Corpuscular Hemoglobin Concent 31.8 g/dl Platelet Count 273 K/uL Mean Platelet Volume 9.5 fL Neutrophils (%) (Auto) 80.6 % Lymphocytes (%) (Auto) 9.3 % Monocytes (%) (Auto) 8.5 % Eosinophils (%) (Auto) 0.7 % Basophils (%) (Auto) 0.2 % Neutrophils # (Auto) 3.71 K/uL Lymphocytes # (Auto) 0.43 K/uL Monocytes # (Auto) 0.39 K/uL Eosinophils # (Auto) 0.03 K/uL Basophils # (Auto) 0.01 K/uL RDW Standard Deviation 52.7 fL RDW Coefficient of Variation 15.7 % Immature Granulocyte % (Auto) 0.7 % Immature Granulocyte # (Auto) 0.03 K/uL Prothrombin Time 9.9 SECONDS Prothromb Time International Ratio 0.9 Activated Partial Thromboplast Time 25.6 SECONDS Partial Thromboplastin Ratio 1.0 Sodium Level 135 mmol/L Potassium Level 4.1 mmol/L Chloride Level 105 mmol/L Carbon Dioxide Level 24 mmol/L Anion Gap 6.0 mmol/L Blood Urea Nitrogen 13 mg/dl Creatinine 0.75 mg/dl Est Creatinine Clear Calc Drug Dose 91.9 ml/min Estimated GFR () 102.6 Estimated GFR (Non- 88.5 BUN/Creatinine Ratio 17.5 Random Glucose 183 mg/dl Calcium Level 8.3 mg/dl Phosphorus Level 1.4 mg/dl Magnesium Level 2.1 mg/dl Total Bilirubin 0.5 mg/dl Direct Bilirubin < 0.1 mg/dl Aspartate Amino Transf (AST/SGOT) 11 U/L Alanine Aminotransferase (ALT/SGPT) 20 U/L Alkaline Phosphatase 368 U/L Troponin I 0.018 ng/ml Total Protein 6.6 gm/dl Albumin 2.8 gm/dl Thyroid Stimulating Hormone (TSH) 1.570 uIu/ml Bedside Glucose 197 mg/dl 121 mg/dl Urine Color YELLOW Urine Appearance CLEAR Urine pH 7.5 Urine Specific [place] 1.018 Urine Protein NEG Urine Glucose (UA) TRACE Urine Ketones NEG Urine Occult Blood NEG Urine Nitrite NEG Urine Bilirubin NEG Urine Urobilinogen NEG Urine Leukocyte Esterase NEG Test 11/28/17 03:43 11/28/17 05:37 11/28/17 06:25 11/28/17 08:50 Bedside Glucose 107 mg/dl 91 mg/dl Sodium Level 139 mmol/L Potassium Level 3.2 mmol/L Chloride Level 108 mmol/L Carbon Dioxide Level 22 mmol/L Anion Gap 9.0 mmol/L Blood Urea Nitrogen 12 mg/dl Creatinine 0.64 mg/dl Est Creatinine Clear Calc Drug Dose 109.8 ml/min Estimated GFR () 109.5 Estimated GFR (Non- 94.4 BUN/Creatinine Ratio 19.2 Random Glucose 84 mg/dl Calcium Level 7.7 mg/dl Phosphorus Level 3.4 mg/dl Magnesium Level 2.0 mg/dl ASSESSMENT: 1. Questionable syncope/near syncope with recent progressive weakness/ recurrent falls. 2. History of mild sinus bradycardia- HR in the 50s on arrival, history of sinus bradycardia in the 50's per outpatient EKG's. On low dose metoprolol. 3. Chronic coronary artery disease s/p anterior wall TX in 2009 with vfib arrest with BMS to LAD. No recent angina 4. Mild to Moderate Aortic insufficiency per echo in 2012. 5. Remote hx of Paroxysmal afib on chronic oral anticoagulation 6. Hypertension - controlled 7. Dyslipidemia controlled; tolerating 80mg atorvastatin 8. Metastatic prostate cancer 9. DM-2: Recommendations: Stop metoprolol Stop Eliquis given recurrent falls/weakness. Continue Plavix and other outpatient cardiac medications. outpatient zio monitor to r/o high degree AV block/pauses that would be contributing to near syncope/syncope. Case discussed with Dr. Red (Margarita Barakat PA-C) CARDIOLOGY ATTENDING ADDENDUM: The patient was seen and personally examined. Agree with Margarita Barakat PA-C's findings and plans as documented above with results as noted below. S: pt feeling improved overnight. Telemetry reveals SB in 45-65 bpm without pauses or AV block. PAST MEDICAL HISTORY: 1. Ventricular fibrillation cardiac arrest in the setting of anterior ST segment elevation myocardial infarction with successful defibrillation, emergent cardiac catheterization, PCI, bare metal stent to the LAD, February 2010 2. Atrial fibrillation, noted at the time of myocardial infarction, no documented recurrence, has remained on chronic anticoagulation 3. Aspirin allergy with past hives, therefore he has been on clopidogrel for antiplatelet therapy on a chronic basis no aspirin 4. Metastatic prostate carcinoma with bone involvement 5. Type 2 diabetes mellitus 6. Dyslipidemia 7. Hypertension PAST SURGICAL HISTORY: 1. Cardiac catheterization 2009 as outlined above 2. Prostatectomy Exam: CV:reg, 1/6 diastolic murmur Ext: no edema Impression: 1. Syncope, versus loss of postural tone due to generalized weakness. 2. Metastatic prostate CA 3. H/o anterior STEMI , with VF required defibrillation upon arrival to ED in 2009, prior to PCI of LAD. Post Procedure had transient AF, without documented recurrence in interim. 4. ASA allergy Plan: DC metoprolol. DC eliquis, due to bleeding risk, and lack of documented recurrent AF since 2009. Continue clopidogrel monotherapy given ASA allergy. If symptoms, persist , will consider outpatient cardiac catheterization technologist for further evaluation of arrhythmias. Increase activity as tolerated. If feeling better after lunch and HR > 60 then, may be able to discharge. (Kenji Red D.O.)
--- NOTE | 2017-11-28 14:16 | Hospitalist Progress Note ---
Hospitalist Progress Note Date of Service Nov 28, 2017. (Nayla Valiente .SINAN) Subjective Pt evaluation today including: conversation w/ patient, physical exam, chart review, lab review, review of inpatient medication list Voiding: no voiding problems Mr. Kathleen is a very pleasant 77 year old man, here due to a syncopal episode. He did not have any warning, but just woke up on the ground. He says he had one other incident like this over the summer at the cancer center but the staff there felt that it was due to tripping over his shoes rather than loss of consciousness. He is still under treatment for prostate cancer though he is no longer receiving chemo. He has lost 26 pounds over the last couple of months and has not had much appetite. ROS Constitutional: no chills, aches, sweats or fever Respiratory: no sob,cough, sputum, or wheezing Cardiac: no chest pain, palpitations, edema, orthopnea or lightheadedness GI: no abdominal pain, nausea, vomiting, diarrhea or constipation : no dysuria or hesitancy Extremities: no joint pain or weakness Skin: no rash All other systems reviewed and negative (Nayla Valiente CRNP) Medications Medications (Trade) Dose Ordered Sig/Jean-Claude Route Start Time Stop Time Status Last Admin Dose Admin Diphtheria/ Pertussis/Tetanus Vacc (Adacel Inj) 0.5 ml ONCE ONCE IM. 11/27/17 16:15 11/27/17 16:16 DC 11/27/17 16:15 0.5 ML Sodium Phosphate 30 mmol/Sodium Chloride 510 ml @ 102 mls/hr ONE ONCE IV 11/27/17 18:15 11/27/17 23:14 DC 11/27/17 18:43 102 MLS/HR Citalopram Hydrobromide (celeXA TAB) 10 mg NOW STAT PO 11/27/17 18:43 11/27/17 18:58 DC 11/27/17 20:11 10 MG Clopidogrel Bisulfate (plAVix TAB) 75 mg DAILY PO 11/28/17 09:00 12/28/17 08:59 11/28/17 07:27 75 MG Escitalopram Oxalate (Lexapro Tab) 10 mg DAILY PO 11/28/17 09:00 12/28/17 08:59 11/28/17 07:27 10 MG Levothyroxine Sodium (Synthroid Tab) 100 mcg DAILYBB PO 11/28/17 06:45 12/28/17 06:44 11/28/17 07:06 100 MCG Lisinopril (Zestril Tab) 10 mg DAILY PO 11/28/17 09:00 12/28/17 08:59 11/28/17 07:27 10 MG Magnesium Oxide (Mag-Ox Tab) 400 mg TID PO 11/28/17 09:00 12/28/17 08:59 11/28/17 07:26 400 MG Potassium/ Phosphorus/Sodium (Phospha 250 Neutral 155-852-130 Mg) 1 tab BID PO 11/28/17 09:00 12/28/17 08:59 11/28/17 07:28 1 TAB Prednisone (PredniSONE TAB) 5 mg BID PO 11/28/17 09:00 12/28/17 08:59 11/28/17 07:28 5 MG Ranitidine HCl (zANTac TAB) 150 mg BID PO 11/28/17 09:00 12/28/17 08:59 11/28/17 07:28 150 MG Apixaban (Eliquis Tab) 5 mg BID PO 11/28/17 09:00 11/28/17 09:36 DC 11/28/17 07:29 5 MG Calcium/Vitamin D (Caltrate Plus Tab) 1 tab BID PO 11/28/17 09:00 12/28/17 08:59 11/28/17 07:27 1 TAB Cyanocobalamin (Vitamin B-12 Tab) 1,000 mcg BID PO 11/28/17 09:00 12/28/17 08:59 11/28/17 07:26 1,000 MCG Ferrous Sulfate (Feosol Tab) 325 mg BID PO 11/28/17 09:00 12/28/17 08:59 11/28/17 07:27 325 MG Insulin Glargine (Lantus Solostar Pen) 44 units TODAY@0300 ONCE SQ 11/28/17 03:00 11/28/17 03:01 DC 11/28/17 03:46 44 UNITS Insulin Aspart (novoLOG ASPART) SLIDING SCALE G... ACHS SC 11/28/17 07:00 12/28/17 06:59 11/28/17 12:13 3 UNITS Potassium Chloride (Klor-Con M10) 40 meq NOW STAT PO 11/28/17 08:54 11/28/17 08:55 DC 11/28/17 10:50 40 MEQ (Nayla Valiente CRNP) Objective Vital Signs Date Time Temp Pulse Resp B/P (MAP) Pulse Ox O2 Delivery O2 Flow Rate FiO2 11/28/17 12:07 36.7 74 20 151/74 (99) 96 Room Air 11/28/17 12:00 94 Room Air 11/28/17 08:06 36.7 55 20 134/71 (92) 96 Room Air 11/28/17 08:00 94 Room Air 11/28/17 03:41 Room Air 11/28/17 03:41 37.0 46 18 144/58 (86) 94 Room Air 11/27/17 23:34 36.7 48 20 161/74 (103) 97 Room Air 57 143/75 (97) 61 143/69 (93) 11/27/17 23:00 Room Air 11/27/17 22:23 36.5 58 20 193/67 99 Room Air 11/27/17 21:30 52 18 129/63 98 Room Air 11/27/17 20:46 48 11/27/17 20:30 50 20 161/68 95 Room Air 11/27/17 19:12 36.3 51 17 157/77 100 Room Air 11/27/17 17:00 36.3 54 17 168/100 100 Room Air 11/27/17 16:47 36.3 54 17 168/100 100 Room Air 11/27/17 16:43 100 Room Air 11/27/17 16:32 54 11/27/17 15:45 36.3 65 17 117/68 97 Room Air (Nayla Valiente CRNP) Physical Exam Notes: General: no distress Eyes: normal inspection, PERLL Respiratory: chest non tender, clear to auscultation, normal breath sounds, no respiratory distress, no accessory muscle use Cardiac: regular rate and rhythm, no rub or gallop, no murmur, no edema, no jvd GI/: active bowel sounds, no abd pain or tenderness, soft, non distended Extremities: normal range of motion, normal strength, non tender Neuro/Psych: alert and oriented x 3, normal mood and affect Skin: normal color, dry (Nayla Valiente, SINAN) Laboratory Results Last 24 Hours Test 11/27/17 16:41 11/27/17 16:51 11/27/17 20:15 11/27/17 22:56 White Blood Count 4.60 K/uL Red Blood Count 3.75 M/uL Hemoglobin 10.9 g/dL Hematocrit 34.3 % Mean Corpuscular Volume 91.5 fL Mean Corpuscular Hemoglobin 29.1 pg Mean Corpuscular Hemoglobin Concent 31.8 g/dl Platelet Count 273 K/uL Mean Platelet Volume 9.5 fL Neutrophils (%) (Auto) 80.6 % Lymphocytes (%) (Auto) 9.3 % Monocytes (%) (Auto) 8.5 % Eosinophils (%) (Auto) 0.7 % Basophils (%) (Auto) 0.2 % Neutrophils # (Auto) 3.71 K/uL Lymphocytes # (Auto) 0.43 K/uL Monocytes # (Auto) 0.39 K/uL Eosinophils # (Auto) 0.03 K/uL Basophils # (Auto) 0.01 K/uL RDW Standard Deviation 52.7 fL RDW Coefficient of Variation 15.7 % Immature Granulocyte % (Auto) 0.7 % Immature Granulocyte # (Auto) 0.03 K/uL Prothrombin Time 9.9 SECONDS Prothromb Time International Ratio 0.9 Activated Partial Thromboplast Time 25.6 SECONDS Partial Thromboplastin Ratio 1.0 Sodium Level 135 mmol/L Potassium Level 4.1 mmol/L Chloride Level 105 mmol/L Carbon Dioxide Level 24 mmol/L Anion Gap 6.0 mmol/L Blood Urea Nitrogen 13 mg/dl Creatinine 0.75 mg/dl Est Creatinine Clear Calc Drug Dose 91.9 ml/min Estimated GFR () 102.6 Estimated GFR (Non- 88.5 BUN/Creatinine Ratio 17.5 Random Glucose 183 mg/dl Calcium Level 8.3 mg/dl Phosphorus Level 1.4 mg/dl Magnesium Level 2.1 mg/dl Total Bilirubin 0.5 mg/dl Direct Bilirubin < 0.1 mg/dl Aspartate Amino Transf (AST/SGOT) 11 U/L Alanine Aminotransferase (ALT/SGPT) 20 U/L Alkaline Phosphatase 368 U/L Troponin I 0.018 ng/ml Total Protein 6.6 gm/dl Albumin 2.8 gm/dl Thyroid Stimulating Hormone (TSH) 1.570 uIu/ml Bedside Glucose 197 mg/dl 121 mg/dl Urine Color YELLOW Urine Appearance CLEAR Urine pH 7.5 Urine Specific [place] 1.018 Urine Protein NEG Urine Glucose (UA) TRACE Urine Ketones NEG Urine Occult Blood NEG Urine Nitrite NEG Urine Bilirubin NEG Urine Urobilinogen NEG Urine Leukocyte Esterase NEG Test 11/28/17 03:43 11/28/17 05:37 11/28/17 06:25 11/28/17 08:50 Bedside Glucose 107 mg/dl 91 mg/dl Sodium Level 139 mmol/L Potassium Level 3.2 mmol/L Chloride Level 108 mmol/L Carbon Dioxide Level 22 mmol/L Anion Gap 9.0 mmol/L Blood Urea Nitrogen 12 mg/dl Creatinine 0.64 mg/dl Est Creatinine Clear Calc Drug Dose 109.8 ml/min Estimated GFR () 109.5 Estimated GFR (Non- 94.4 BUN/Creatinine Ratio 19.2 Random Glucose 84 mg/dl Calcium Level 7.7 mg/dl Phosphorus Level 3.4 mg/dl Magnesium Level 2.0 mg/dl Test 11/28/17 10:47 Bedside Glucose 255 mg/dl (Nayla Valiente ., SINAN) Assessment and Plan Me. Hever is a 77 year old man here for syncope Syncope, anorexia - discussed with cardiology - they recommend dc metoprolol but also mention that 50s is patient's baseline heart rate. He will need a Holter monitor study outpatient - syncope likely due to nutritional deficiencies given patient's weight loss and low phos on admission. Will consult hydropulper Hypophosphatemia - replaced, likely related to anorexia Hypokalemia - replaced, likely related to anorexia Weakness/fatigue. - Appears to be acute on chronic - may be related electrolyte abnormalities, patient feels better today. 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
[2017-11-28] MEDS ORDERED: ATORVASTATIN 40 MG TAB PO SCH (21:00)
[2017-11-29] VITALS (8 sets, daily range): BP systolic 124–180; BP diastolic 66–85; PULSE 64–81; TEMP 36.5–36.8; O2SAT 94–100; Ht 175.3 cm; Wt 100.1 kg
[2017-11-29] MEDS: LEVOTHYROXINE 100 MCG TAB PO SCH (05:29)
[2017-11-29] MEDS: INSULIN ASPART 100 UNITS/ML 3 ML PEN SC SCH ×3 (07:00→16:58)
[2017-11-29] MEDS: CALCIUM 600MG + VIT D 400 IU TAB PO SCH (07:36)
[2017-11-29] MEDS: CYANOCOBALAMIN 500 MCG TAB (VIT B-12) PO SCH (07:36)
[2017-11-29] MEDS: ESCITALOPRAM OXALATE 10 MG TAB PO SCH (07:36)
[2017-11-29] MEDS: RANITIDINE HCL 150 MG TAB PO SCH (07:36)
[2017-11-29] MEDS: POT PHOSPHATE MONOBASIC W/ SOD TAB PO SCH (07:36)
[2017-11-29] MEDS: FERROUS SULFATE 325 MG TAB PO SCH (07:37)
[2017-11-29] MEDS: MAGNESIUM OXIDE 400 MG TAB PO SCH ×2 (07:37→12:33)
[2017-11-29] MEDS: CLOPIDOGREL BISULFATE 75 MG TAB PO SCH (07:37)
[2017-11-29] MEDS: LISINOPRIL 10 MG TAB PO SCH (07:37)
[2017-11-29 09:14] LABS: CALCIUM 8.3 mg/dl (8.5-10.1); CREATININE 0.68 mg/dl (0.60-1.40); POTASSIUM 4.1 mmol/L (3.5-5.1)
--- NOTE | 2017-11-29 11:29 | Cardiology Follow-Up ---
Subjective General Date of Service: Nov 29, 2017. Chief Complaint: follow up weakness, bradycaria Pt evaluation today including: conversation w/ patient, physical exam History of Present Illness The patient is a 77 year old male seen in follow-up. Patient feeling improved. Heart rates in the 65-75 bpm at rest this morning on telemetry. Allergies Coded Allergies: Penicillins (Verified Allergy, Mild, HIVE'S, 11/27/17) Hurley (Verified Allergy, Mild, HIVES, 11/27/17) Aspirin (Verified Allergy, Unknown, HIVES, 11/27/17) Abernathy (Verified Allergy, Unknown, HIVES, 11/27/17) Tomato (Verified Allergy, Unknown, HIVES, 11/27/17) Egg (Verified Adverse Reaction, Unknown, Diarrhea, 11/28/17) Uncoded Allergies: scramled and fried eggs (Adverse Reaction, Intermediate, diarrhea, 10/23/16 ) Social History Smoking Status: Never Smoker Hx Tobacco Use In Past Year?: No Hx Alcohol Use - Type And Amou: No Hx Substance Use - Type And Am: No Problem List Medical Problems: (1) Abrasion of left arm Status: Acute (2) Back pain Status: Acute (3) Bronchitis Status: Acute (4) Bursitis of left hip Status: Acute (5) Epigastric abdominal pain Status: Acute (6) Fall Status: Acute (7) Headache Status: Acute (8) Infection of skin Status: Acute (9) Left lower lobe pneumonia Status: Acute (10) Poorly controlled diabetes mellitus Status: Acute (11) Right knee pain Status: Acute (12) Skin tear of right upper extremity Status: Acute (13) Substernal chest pain Status: Acute (14) Syncope Status: Acute Surgical Problems: (1) S/P prostatectomy Status: Chronic (2) Total knee replacement status Status: Acute Physical Exam Vital Signs Last Vital Signs Documentation Date Time Temp Pulse Resp B/P (MAP) Pulse Ox O2 Delivery O2 Flow Rate FiO2 11/29/17 08:04 36.8 64 18 124/68 (86) 97 11/29/17 08:00 Room Air Physical Exam Constitutional: Level of Distress: NAD Neck: supple Lungs: Auscultation: no wheezing, no rales/crackles, no rhonchi Cardiovascular: Heart Auscultation: RRR, no murmurs, no rubs, no gallops Musculoskeletal: normal Extremities: no edema Neurologic: Gait & Station: pertinent finding (no focal deficits) Assessment and Plan Assessment and Plan Impression: 1. Syncope, versus loss of postural tone due to generalized weakness. 2. Metastatic prostate CA 3. H/o anterior STEMI , with VF required defibrillation upon arrival to ED in 2009, prior to PCI of LAD. Post Procedure had transient AF, without documented recurrence in interim. 4. ASA allergy Plan: Pt improved. OK to discharge off of Eliquis and metoprolol. Will arrange cardiology follow up. Laboratory Results Last 24 Hours Test 11/28/17 17:04 11/28/17 19:54 11/29/17 01:19 11/29/17 03:41 Bedside Glucose 205 mg/dl 234 mg/dl 105 mg/dl 117 mg/dl Test 11/29/17 07:01 11/29/17 07:10 Cortisol AM Sample 3.64 mcg/dl Sodium Level 139 mmol/L Potassium Level 4.1 mmol/L Chloride Level 107 mmol/L Carbon Dioxide Level 24 mmol/L Anion Gap 8.0 mmol/L Blood Urea Nitrogen 11 mg/dl Creatinine 0.68 mg/dl Est Creatinine Clear Calc Drug Dose 106.1 ml/min Estimated GFR () 106.8 Estimated GFR (Non- 92.1 BUN/Creatinine Ratio 16.1 Random Glucose 133 mg/dl Calcium Level 8.3 mg/dl
--- NOTE | 2017-11-29 14:50 | Discharge Instructions ---
Discharge Instructions Date of Service Nov 29, 2017. Admission Reason for Admission: Hypophosphatemia, Syncope Discharge Discharge Diagnosis / Problem: Syncope Discharge Goals Goal(s): Decrease discomfort, Improve function, Increase independence, Improve disease control, Learn about illness, Diagnostic testing, Prevent Disease Progression Activity Recommendations Activity Limitations: resume your previous activity Exercise/Sports Limitations: as tolerated . Instructions / Follow-Up Instructions / Follow-Up Patient to be discharged home Please stop taking metoprolol and eliquis at this time Please continue all other home medications Patient to follow up with Dr. Red in 1 week If worsening chest pain, shortness of breath, palpitations please report to ER Follow up with Dr Valiente in 1-2 weeks Current Hospital Diet Patient's current hospital diet: AHA Diet (Heart Healthy) Discharge Diet Recommended Diet: AHA Diet (Heart Healthy) Pending Studies Studies pending at discharge: no Medical Emergencies . Who to Call and When: Medical Emergencies: If at any time you feel your situation is an emergency, please call 911 immediately. . Non-Emergent Contact Non-Emergency issues call your: Primary Care Provider Call Non-Emergent contact if: you have any medication questions . . "Provider Documentation" section prepared by Audie Fuentes. . VTE Core Measure Inpt VTE Proph given/why not?: Other Anticoagulation
--- NOTE | 2017-11-29 20:52 | Discharge Summary ---
Discharge Summary Date of Service Nov 29, 2017. Discharge Summary Admission Date: Nov 28, 2017 at 16:26 Discharge Date: Nov 29, 2017 Discharge Disposition: Home Principal Diagnosis: Syncope, bradycardia Problems/Secondary Diagnoses: (1) S/P prostatectomy Status: Chronic Immunizations: Have You Had Influenza Vaccine: No History of Tetanus Vaccine?: YEARS AGO History of Pneumococcal: No History of Hepatitis B Vaccine: No Consultations: Cardiology Medication Reconciliation Continued Medications: Atorvastatin (Lipitor) 80 Mg Tab 80 MG PO HS, 0 Refills Calcium Carbonate-Cholecalcife (Caltrate 600+D) 1 Tab Tab 1 TAB BID Clopidogrel (Plavix) 75 Mg Tab 75 MG PO DAILY, 0 Refills Cyanocobalamin (Vitamin B12) 1,000 Mcg Tab 1000 MCG PO BID Escitalopram (Lexapro) 10 Mg Tab 10 MG PO DAILY AT 1500, TAB Ferrous Sulfate (Kp Ferrous Sulfate) 325 Mg Tab 325 MG PO BID for 30 Days, #60 TAB 3 Refills Insulin Glargine (Toujeo Solostar) 300 Unit/Ml Inj 55 UNITS HS Insulin Lispro (Human) (Humalog Kwikpen) 100 Unit/Ml Inj 1 DOSE SC BIDM PER SLIDING SCALE Levothyroxine Sodium (Levothyroxine Sodium) 100 Mcg Tab 100 MCG PO DAILY Lisinopril (Prinivil) 10 Mg Tab 10 MG PO DAILY, TAB Magnesium Oxide (Mag-Ox) 400 Mg Tab 400 MG PO TID, 0 Refills Pot Phosphate Monobasic W/ Sod (Phospha 250 Neutral) 1 Tab Tab 1 TAB PO BID Prednisone (Prednisone) 5 Mg Tab 5 MG PO BID Ranitidine (Zantac) 150 Mg Tab 150 MG PO BID, TAB Discontinued Medications: Apixaban (Eliquis) 5 Mg Tab 5 MG PO BID, TAB Metoprolol Succinate (Toprol Xl) 25 Mg Tab 25 MG PO DAILY, #30 TAB Discharge Exam Review of Systems: Constitutional: No fever, No chills, No sweats, No weight loss, No weakness , No fatigue, No problem reported ENT: No hearing loss, No unusual epistaxis, No nasal symptoms, No sore throat, No tinnitus, No dental problems, No trouble swallowing, No problem reported Respiratory: No cough, No sputum, No wheezing, No shortness of breath, No dyspnea on exertion, No dyspnea at rest, No hemoptysis, No problem reported Cardiovascular: No chest pain, No orthopnea, No PND, No edema, No claudication, No palpitations, No problem reported Abdomen: No pain, No nausea, No vomiting, No diarrhea, No constipation, No GI bleeding, No problem reported Musculoskeletal: No joint pain, No muscle pain, No swelling, No calf pain, No problem reported Genitourinary - Female: No dysuria, No urinary frequency, No urinary urgency , No urinary incontinence, No urinary retention, No hematuria, No dysmenorrhea, No menorrhagia, No metrorrhagia, No rash, No vaginal bleeding, No vaginal discharge, No vaginal itching, No vulvodynia, No , No problem reported Neurologic: No memory loss, No paralysis, No weakness, No numbness/tingling , No vertigo, No balance problems, No problem reported Endocrine: No fatigue, No excessive thirst, No excessive urination, No problem reported Hematologic / Lymphatic: No abnormal bleeding/bruising, No clotting problems , No swollen lymph nodes, No night sweats, No problem reported Physical Exam: General Appearance: WD/WN, no apparent distress Eyes: normal inspection, PERRL, EOMI, sclerae normal Neck: supple, no adenopathy, thyroid normal, no JVD Respiratory/Chest: chest non-tender, lungs clear, normal breath sounds, no respiratory distress Cardiovascular: regular rate, rhythm, no edema, no gallop, no JVD Abdomen / GI: normal bowel sounds, non tender, soft, no organomegaly Extremities: normal inspection, no calf tenderness, normal capillary refill , no pedal edema Neurologic/Psychiatric: no motor/sensory deficits, alert, normal mood/affect , normal reflexes Skin: normal color, warm/dry, no rash Lymphatic: no adenopathy Hospital Course MeCarlos Kathleen is a 77 year old man here for syncope Syncope, anorexia - discussed with cardiology - they recommend dc metoprolol but also mention that 50s is patient's baseline heart rate. will also hold eliquis too. He will need a Holter monitor study outpatient - syncope likely also due to nutritional deficiencies given patient's weight loss and low phos on admission. Will consult label designer Hypophosphatemia - replaced, likely related to anorexia Hypokalemia - replaced, likely related to anorexia Weakness/fatigue. - Appears to be acute on chronic - may be related electrolyte abnormalities, patient feels better today. 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 Discharge Instructions Please refer to the electronic Patient Visit Report (Discharge Instructions) for additional information. Additional Copies To Van Valiente M.D.
== END 2017-11-29 18:11 | disposition home health service (06) | DRG 642 ==
LOC: C.EDB 15:40 → C.2T 20:59 → ENRESERV 21:18 → OBSVTOIN 11-28 16:26
PROVIDERS: ADMIT Internal Medicine; ATTEND Hospitalist
DX: E83.39 Other disorders of phosphorus metabolism (principal); C79.51 Secondary malignant neoplasm of bone; R55 Syncope and collapse; R00.1 Bradycardia, unspecified; R63.0 Anorexia; E87.6 Hypokalemia; M25.561 Pain in right knee; S50.811A Abrasion of right forearm, initial encounter; R53.1 Weakness; Z23 Encounter for immunization; I25.2 Old myocardial infarction; E11.9 Type 2 diabetes mellitus without complications; I11.9 Hypertensive heart disease without heart failure; I25.10 Atherosclerotic heart disease of native coronary artery without angina pectoris; I48.0 Paroxysmal atrial fibrillation; E78.5 Hyperlipidemia, unspecified; D64.9 Anemia, unspecified; K21.9 Gastro-esophageal reflux disease without esophagitis; E03.9 Hypothyroidism, unspecified; Z79.899 Other long term (current) drug therapy; Z79.01 Long term (current) use of anticoagulants; Z79.4 Long term (current) use of insulin; Z79.02 Long term (current) use of antithrombotics/antiplatelets; Z79.52 Long term (current) use of systemic steroids; Z91.81 History of falling; Z85.46 Personal history of malignant neoplasm of prostate; Z90.79 Acquired absence of other genital organ(s); Z95.5 Presence of coronary angioplasty implant and graft; Z96.653 Presence of artificial knee joint, bilateral; Z83.3 Family history of diabetes mellitus; Z82.49 Family history of ischemic heart disease and other diseases of the circulatory system; W19.XXXA Unspecified fall, initial encounter; Y92.009 Unspecified place in unspecified non-institutional (private) residence as the place of occurrence of the external cause; Y99.8 Other external cause status

== ENCOUNTER → 2017-12-06 | Outpatient (CLI) | payer OTHER, MEDICARE ==
[~2017-12-06] MED LIST changes: -ACET1TAB84 PO; -APIX1TAB3 PO; -CETI10TA84 PO; -DENOINJ IM; +FERR1TAB13 PO; -FERR28TA2 PO; -HYDR-5688 PO; -KPH250 PO; -LEUP30IN3 IM; -LOPE1CAP6 PO; -METO-478 PO; +POTTAB2 PO
[2017-12-06 17:30] LABS: BLOOD UREA NITROGEN 14 mg/dl (7-18); CALCIUM 8.6 mg/dl (8.5-10.1); CARBON DIOXIDE 23 mmol/L (21-32); CREATININE 0.74 mg/dl (0.60-1.40); GLUCOSE 229 mg/dl (70-99); POTASSIUM 3.5 mmol/L (3.5-5.1); SODIUM 134 mmol/L (136-145)
== END | disposition home or self-care (01) ==
LOC: C.LABPBG 12:51
PROVIDERS: ATTEND Physician Assistant
DX: E83.39 Other disorders of phosphorus metabolism (principal); E87.6 Hypokalemia

== ENCOUNTER 2017-12-30 18:13 | Emergency (ER) | payer OTHER, MEDICARE ==
[~2017-12-30] VITALS: Ht 175.3 cm; Wt 100.6 kg
[2017-12-30 18:23] VITALS: TEMP 36.8; Ht 175.3 cm; Wt 100.6 kg
[2017-12-30] MEDS ORDERED: SODIUM CHLORIDE 0.9% 1000ML 1,000 ML IV STA (20:06)
[2017-12-30] MEDS ORDERED: ACETAMINOPHEN 500 MG TAB PO STA (20:06)
[2017-12-30 20:44] LABS: HEMATOCRIT 34.2 % (42-52); HEMOGLOBIN 10.9 g/dL (14.0-18.0); MEAN CELL VOLUME 89.1 fL (80-100); MEAN CORPUSCULAR HEMOGLOBIN 28.4 pg (25-34); MEAN CORPUSCULAR HGB CONC 31.9 g/dl (32-36); MEAN PLATELET VOLUME 9.3 fL (7.4-10.4); PLATELET COUNT 271 K/uL (130-400); RED CELL DISTRIBUTION WIDTH CV 16.2 % (11.5-14.5); RED CELL DISTRIBUTION WIDTH SD 52.3 fL (36.4-46.3); WHITE BLOOD COUNT 6.21 K/uL (4.8-10.8)
--- NOTE | 2017-12-30 20:53 | DIAGNOSTIC IMAGING REPORT ---
CHEST ONE VIEW PORTABLE CLINICAL HISTORY: Pain, radiating to the abdomen COMPARISON STUDY: 11/27/2017 FINDINGS: The heart is at the upper limits of normal in size. There is aortic tortuosity. There is no failure. There is no focal pulmonary consolidation. There are no pleural effusions. There is no free intraperitoneal air. There are old left-sided rib deformities.[ IMPRESSION: No active disease in the chest. Electronically signed by: Terrance Payan M.D. 12/30/2017 8:52 PM Dictated Date/Time: 12/30/2017 8:51 PM
[2017-12-30 21:00] LABS: ALBUMIN 2.7 gm/dl (3.4-5.0); CALCIUM 8.2 mg/dl (8.5-10.1); CREATININE 0.92 mg/dl (0.60-1.40); POTASSIUM 3.8 mmol/L (3.5-5.1)
[2017-12-30 21:03] LABS: TOTAL PROTEIN 6.5 gm/dl (6.4-8.2)
[2017-12-30 21:05] LABS: BASO % 0.2 %; BASO ABS # 0.01 K/uL (0-0.2); EOS % 0.6 %; EOS ABS # 0.04 K/uL (0-0.5); IG# 0.05 K/uL (0.00-0.02); LYMPH % 7.4 %; LYMPH ABS # 0.46 K/uL (1.2-3.4); MONO % 12.7 %; MONO ABS # 0.79 K/uL (0.11-0.59); NEUT % 78.3 %; NEUT ABS # 4.86 K/uL (1.4-6.5)
[2017-12-30 21:55] LABS: INFLUENZA B ANTIGEN Neg for Influ B (NEG)
[2017-12-30] MEDS ORDERED: OSEL75CA23 PO (22:24)
--- NOTE | 2017-12-30 22:25 | EMERGENCY ROOM VISIT NOTE ---
History Report prepared by Pierre: Iris [place] Under the Supervision of: Dr. Nate Dumont M.D. First contact with patient: 19:44 Chief Complaint: FLU LIKE SX Stated Complaint: FEVER,CHILL,BACK ACHING WAS TALKING CRAZY History of Present Illness The patient is a 77 year old male who presents to the Emergency Room with complaints of persistent illness starting this morning. His notes that he was disoriented and confused this morning. He was shaking uncontrollably with chills today. They then found that he had a fever of 102. He took Advil at 1630. He was diaphoretic. He is complaining of burning with urination. He is weaker than usual. He has been feeling lightheaded for the past 5 days. He denies any nausea, vomiting, diarrhea, abdominal pain. He has complained of a back ache for the past 1.5 weeks. He has a history of arthritis in his back. He has prostate cancer which has metastasized to his spine. He often has back pain. He was restarted on Eliquis several days ago. He was taken off Eliquis after a fall last month. He did not have a flu shot this season. He has needed reminding to drink fluids. Source of History: patient, spouse/significant other Onset: this morning Position: other (global) Quality: other (illness) Timing: other (persistent) Associated Symptoms: + fevers, + chills, + diaphoresis, + urinary symptoms, + weakness, No nausea, No vomiting, No abdominal pain, No diarrhea Review of Systems See HPI for pertinent positives and negatives. A total of ten systems were reviewed and were otherwise negative. Past Medical & Surgical Medical Problems: (1) Anemia (2) Anticoagulated on Coumadin (3) Chest pain radiating to arm (4) Coronary artery disease with history of myocardial infarction without history of CABG (5) Diabetes (6) GERD (gastroesophageal reflux disease) (7) Hyperlipidemia (8) Hypertension (9) Hypophosphatemia (10) Hypothyroidism (11) Osteoarthritis (12) Paroxysmal atrial fibrillation (13) Prostate cancer Surgical Problems: (1) S/P prostatectomy (2) Stented coronary artery Family History Diabetes mellitus Hypertension Social History Smoking Status: Never Smoker Alcohol Use: none Drug Use: none Marital Status: Housing Status: lives with significant other Occupation Status: retired Current/Historical Medications Scheduled Atorvastatin (Lipitor), 80 MG PO HS Calcium Carbonate-Cholecalcife (Caltrate 600+D), 1 TAB BID Clopidogrel (Plavix), 75 MG PO DAILY Cyanocobalamin (Vitamin B12), 1,000 MCG PO BID Escitalopram (Lexapro), 10 MG PO DAILY AT 1500 Ferrous Sulfate (Kp Ferrous Sulfate), 325 MG PO BID Insulin Glargine (Toujeo Solostar), 55 UNITS HS Insulin Lispro (Human) (Humalog Kwikpen), 1 DOSE SC BIDM Levothyroxine Sodium (Levothyroxine Sodium), 100 MCG PO DAILY Lisinopril (Prinivil), 10 MG PO DAILY Magnesium Oxide (Mag-Ox), 400 MG PO TID Oseltamivir Phosphate (Tamiflu), 75 MG PO BID Pot Phosphate Monobasic W/ Sod (Phospha 250 Neutral), 1 TAB PO BID Prednisone (Prednisone), 5 MG PO BID Ranitidine (Zantac), 150 MG PO BID Allergies Coded Allergies: Penicillins (Verified Allergy, Mild, HIVE'S, 11/27/17) Leblanc (Verified Allergy, Mild, HIVES, 11/27/17) Aspirin (Verified Allergy, Unknown, HIVES, 11/27/17) [place] (Verified Allergy, Unknown, HIVES, 11/27/17) Tomato (Verified Allergy, Unknown, HIVES, 11/27/17) Egg (Verified Adverse Reaction, Unknown, Diarrhea, 11/28/17) Uncoded Allergies: scramled and fried eggs (Adverse Reaction, Intermediate, diarrhea, 10/23/16 ) Physical Exam Vital Signs Date Time Temp Pulse Resp B/P (MAP) Pulse Ox O2 Delivery O2 Flow Rate FiO2 12/30/17 22:53 87 20 113/55 97 12/30/17 20:59 62 12/30/17 18:23 36.8 86 20 100/63 96 Room Air Physical Exam GENERAL: Awake, alert, fatigued-appearing, in no distress HENT: Normocephalic, atraumatic. Dry cracked mucous membranes. Oropharynx unremarkable. EYES: Normal conjunctiva. Sclera non-icteric. NECK: Supple. No nuchal rigidity. FROM. No JVD. RESPIRATORY: Diminished breath sounds at the bases. CARDIAC: Regular rate, normal rhythm. Extremities warm and well perfused. Pulses equal. ABDOMEN: Soft, non-distended. No tenderness to palpation. No rebound or guarding. No masses. RECTAL: Deferred. MUSCULOSKELETAL: Chest examination reveals no tenderness. The back is symmetrical on inspection without obvious abnormality. There is no CVA tenderness to palpation. No joint edema. LOWER EXTREMITIES: Calves are equal size bilaterally and non-tender. Scant edema. No discoloration. NEURO: Normal sensorium. No sensory or motor deficits noted. SKIN: No rash or jaundice noted. Medical Decision & Procedures ER Provider Diagnostic Interpretation: Xray results as stated below per my and radiologist interpretation: CHEST ONE VIEW PORTABLE CLINICAL HISTORY: Pain, radiating to the abdomen COMPARISON STUDY: 11/27/2017 FINDINGS: The heart is at the upper limits of normal in size. There is aortic tortuosity. There is no failure. There is no focal pulmonary consolidation. There are no pleural effusions. There is no free intraperitoneal air. There are old left-sided rib deformities.[ IMPRESSION: No active disease in the chest. Electronically signed by: Terrance Payan M.D. 12/30/2017 8:52 PM Dictated Date/Time: 12/30/2017 8:51 PM Laboratory Results 12/30/17 20:20 Red Blood Count 3.84, Mean Corpuscular Volume 89.1, Mean Corpuscular Hemoglobin 28.4, Mean Corpuscular Hemoglobin Concent 31.9, Mean Platelet Volume 9.3, Neutrophils (%) (Auto) 78.3, Lymphocytes (%) (Auto) 7.4, Monocytes (%) (Auto) 12.7, Eosinophils (%) (Auto) 0.6, Basophils (%) (Auto) 0.2, Neutrophils # (Auto ) 4.86, Lymphocytes # (Auto) 0.46, Monocytes # (Auto) 0.79, Eosinophils # (Auto ) 0.04, Basophils # (Auto) 0.01 12/30/17 20:20 Test 12/30/17 20:20 12/30/17 20:26 12/30/17 20:40 12/30/17 20:47 White Blood Count 6.21 K/uL (4.8-10.8) Red Blood Count 3.84 M/uL (4.7-6.1) Hemoglobin 10.9 g/dL (14.0-18.0) Hematocrit 34.2 % (42-52) Mean Corpuscular Volume 89.1 fL (80-100) Mean Corpuscular Hemoglobin 28.4 pg (25-34) Mean Corpuscular Hemoglobin Concent 31.9 g/dl (32-36) Platelet Count 271 K/uL (130-400) Mean Platelet Volume 9.3 fL (7.4-10.4) Neutrophils (%) (Auto) 78.3 % Lymphocytes (%) (Auto) 7.4 % Monocytes (%) (Auto) 12.7 % Eosinophils (%) (Auto) 0.6 % Basophils (%) (Auto) 0.2 % Neutrophils # (Auto) 4.86 K/uL (1.4-6.5) Lymphocytes # (Auto) 0.46 K/uL (1.2-3.4) Monocytes # (Auto) 0.79 K/uL (0.11-0.59) Eosinophils # (Auto) 0.04 K/uL (0-0.5) Basophils # (Auto) 0.01 K/uL (0-0.2) RDW Standard Deviation 52.3 fL (36.4-46.3) RDW Coefficient of Variation 16.2 % (11.5-14.5) Immature Granulocyte % (Auto) 0.8 % Immature Granulocyte # (Auto) 0.05 K/uL (0.00-0.02) Large Platelets 1+ Anion Gap 11.0 mmol/L (3-11) Est Creatinine Clear Calc Drug Dose 78.6 ml/min Estimated GFR () 92.7 Estimated GFR (Non- 79.9 BUN/Creatinine Ratio 16.1 (10-20) Calcium Level 8.2 mg/dl (8.5-10.1) Total Bilirubin 0.9 mg/dl (0.2-1) Direct Bilirubin 0.2 mg/dl (0-0.2) Aspartate Amino Transf (AST/SGOT) 17 U/L (15-37) Alanine Aminotransferase (ALT/SGPT) 17 U/L (12-78) Alkaline Phosphatase 533 U/L (45-117) Total Protein 6.5 gm/dl (6.4-8.2) Albumin 2.7 gm/dl (3.4-5.0) Lipase 42 U/L (73-393) Bedside Glucose 175 mg/dl (70-99) Urine Color YELLOW Urine Appearance CLEAR (CLEAR) Urine pH 8.5 (4.5-7.5) Urine Specific [place] 1.016 (1.000-1.030) Urine Protein NEG (NEG) Urine Glucose (UA) NEG (NEG) Urine Ketones NEG (NEG) Urine Occult Blood NEG (NEG) Urine Nitrite NEG (NEG) Urine Bilirubin NEG (NEG) Urine Urobilinogen NEG (NEG) Urine Leukocyte Esterase NEG (NEG) Urine WBC (Auto) 1-5 /hpf (0-5) Urine RBC (Auto) 0-4 /hpf (0-4) Urine Hyaline Casts (Auto) 1-5 /lpf (0-5) Urine Epithelial Cells (Auto) 10-20 /lpf (0-5) Urine Bacteria (Auto) NEG (NEG) Influenza Type A (RT-PCR) Neg for Influ A (NEG) Influenza Type A Antigen Neg for Influ A (NEG) Influenza Type B Antigen Neg for Influ B (NEG) Influenza Type B (RT-PCR) Neg for Influ B (NEG) Test 12/30/17 22:37 Bedside Lactic Acid Venous 0.93 mmol/L (0.90-1.70) Laboratory results reviewed by me Medications Administered Medications (Trade) Dose Ordered Sig/Jean-Claude Route Start Time Stop Time Status Last Admin Dose Admin Sodium Chloride 1,000 ml @ 999 mls/hr Q1H1M STAT IV 12/30/17 20:06 12/30/17 21:06 DC 12/30/17 20:33 999 MLS/HR Acetaminophen (Tylenol Tab) 1,000 mg NOW STAT PO 12/30/17 20:06 12/30/17 20:10 DC 12/30/17 21:16 1,000 MG Oseltamivir Phosphate (Tamiflu Cap) 75 mg NOW STAT PO 12/30/17 22:38 12/30/17 22:39 DC 12/30/17 22:46 75 MG ECG Indication: weakness Rate (beats per minute): 68 Rhythm: normal sinus Findings: no acute ischemic change, other (normal axis) Change: Patient's electrocardiogram interpreted by me. ED Course 2004: The patient was evaluated in room C3. A complete history and physical exam was performed. 2208: I reevaluated the patient. Discussed results and discharge instructions: He verbalized understanding and agreement. The patient is ready for discharge. Medical Decision I reviewed the patient's past medical history, medications, and the nursing notes as described above. Differential diagnosis: pneumonia, bronchitis, UTI, viral syndrome, influenza, ACS, CHF, worsening malignancy, sepsis, bacteremia. The patient is a 77 y/o gentleman with a pmhx of Stage 4 prostate CA with bony mets, CAD, paroxysmal afib no longer on AC presents to the emergency department with f/c, back/body aches, transient confusion this morning per HPI. On arrival the patient is fatigued appearing, in NAD, AFVSS. Appears clinically dry in the setting of family reporting they have to frequently remind patient to drink fluids. EKG unremarkable. POC lacate 2.02. Sodium 131. Labs otherwise unremarkable including WBC and Cr wnl. UA negative. Influenza Ag and PCR negative. CXR negative. Patient feeling significantly improved after IVF suggesting likely mild dehydration in the setting of likely viral illness. Option given to family for admission vs discharge however patient feeling much better and prefers discharge. While Influenza negative, will treat with Tamiflu given high prevalence in the community and the patient's multiple comorbidities. Findings and plan for follow-up reviewed with patient and family. Patient and family agreeable and d/c'd per discharge instructions. Medication Reconcilliation Current Medication List: was personally reviewed by me Blood Pressure Screening Patient's blood pressure: Normal blood pressure Blood pressure disposition: Did not require urgent referral Impression Primary Impression: Viral syndrome Additional Impression: Dehydration Scribe Attestation The scribe's documentation has been prepared under my direction and personally reviewed by me in its entirety. I confirm that the note above accurately reflects all work, treatment, procedures, and medical decision making performed by me. Departure Information Dispostion Home / Self-Care Prescriptions Oseltamivir Phosphate (Tamiflu) 75 Mg Cap 75 MG PO BID, #10 CAP Prov: Nate Dumont M.D. 12/30/17 Referrals Van Valiente M.D. (PCP) Patient Instructions ED Dehydration, ED Viral Syndrome, My [facility] Additional Instructions Please follow up with your primary care physician tomorrow as scheduled for re- evaluation. You may have a viral illness that could possibly be flu (although your flu test was negative today). Otherwise, your exam, EKG, chest xray, and lab results did not show signs of an emergent condition at this time. Acetaminophen for pain and fevers as needed. Tamiflu as directed. Drink plenty of fluids to ensure hydration. Return to the emergency department for worsening symptoms as described in the accompanying instructions. Problem Qualifiers
[2017-12-30] MEDS ORDERED: OSELTAMIVIR PHOSPHATE 75 MG CAP PO STA (22:38)
[2017-12-30 22:53] VITALS: BP 113/55; PULSE 87; O2SAT 97
[2017-12-30 23:33] LABS: INFLUENZA A PCR Neg for Influ A (NEG); INFLUENZA B PCR Neg for Influ B (NEG)
== END 2017-12-30 22:53 | disposition home or self-care (01) ==
LOC: C.EDB 18:14 → C.EDC 22:53
DX: R41.0 Disorientation, unspecified (principal); R50.9 Fever, unspecified; R61 Generalized hyperhidrosis; R53.83 Other fatigue; R30.0 Dysuria; R42 Dizziness and giddiness; R60.0 Localized edema; C61 Malignant neoplasm of prostate; C79.51 Secondary malignant neoplasm of bone; M46.90 Unspecified inflammatory spondylopathy, site unspecified; E11.9 Type 2 diabetes mellitus without complications; I10 Essential (primary) hypertension; I25.10 Atherosclerotic heart disease of native coronary artery without angina pectoris; I48.0 Paroxysmal atrial fibrillation; E03.9 Hypothyroidism, unspecified; M47.9 Spondylosis, unspecified; K21.9 Gastro-esophageal reflux disease without esophagitis; E78.5 Hyperlipidemia, unspecified; Z79.4 Long term (current) use of insulin; Z88.0 Allergy status to penicillin; Z91.018 Allergy to other foods; Z88.6 Allergy status to analgesic agent; Z91.012 Allergy to eggs; Z79.52 Long term (current) use of systemic steroids; Z83.3 Family history of diabetes mellitus; Z82.49 Family history of ischemic heart disease and other diseases of the circulatory system

== ENCOUNTER → 2018-01-27 | Outpatient (CLI) | payer OTHER, MEDICARE ==
[~2018-01-27] MED LIST changes: +OSEL75CA23 PO; +RANI150T85 PO; -ZNTT/150 PO
--- NOTE | 2018-01-27 15:00 | DIAGNOSTIC IMAGING REPORT ---
BONE SCAN WHOLE BODY CLINICAL HISTORY: Prostate carcinoma. Metastatic bone disease. COMPARISON STUDY: 06/05/2017 FINDINGS: The patient was injected with 27.5 mCi of technetium 99m MDP. Delayed whole body images were acquired. There is been marked progression in the patient's skeletal metastasis. There are innumerable new lesions. There are foci of increased activity within the left occipital bone. There are foci of increased activity within both proximal humeri. There are multiple foci of abnormal activity within the ribs thoracic and lumbar spine. There is intense increased activity within the sacrum and iliac bones. There are foci of increased activity within the proximal and mid right femur. IMPRESSION: Marked progression in the extensive skeletal metastasis. Electronically signed by: Terrance Payan M.D. 01/27/2018 2:59 PM Dictated Date/Time: 01/27/2018 2:57 PM
== END | disposition home or self-care (01) ==
LOC: C.NUCL 10:52
PROVIDERS: ATTEND Physician Assistant
DX: C61 Malignant neoplasm of prostate (principal); C79.51 Secondary malignant neoplasm of bone; D64.9 Anemia, unspecified

== ENCOUNTER → 2018-02-19 | Outpatient (CLI) | payer OTHER, MEDICARE ==
[~2018-02-19] MED LIST changes: +METO25TA4 PO
[2018-02-19 14:09] VITALS: BP 117/74; PULSE 73; TEMP 36.6; O2SAT 99
--- NOTE | 2018-02-19 16:36 | Radiation Oncology Follow-Up ---
Radiation Oncology Follow-Up Date of Visit Feb 19, 2018. 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 He received 3000 cGy. Last Edited By: Gege Ramirez on Jul 15, 2017 13:32 History of Present Illness Mr. Kathleen is a 76-year-old male who presented in 2004 with an adenocarcinoma the prostate Imogene grade 4+5 and biopsy stage TIIc. Presenting prostate-specific antigen was 9.8. Patient underwent a radical prostatectomy on 10/02/2005. Lymph nodes were negative perineural invasion was identified but no angiolymphatic invasion noted. The tumor involved the cauterized left base margin and came within 0.5 mm or less of several of the capsular/inked margins. Final Magalis grade was 4+5 with a pathologic stage TIII N0 M0. The patient's prostate-specific antigen promptly dropped to 0 and remained there until May 2006 when it increased to 0.54 and 1.14 in June 2006. We saw the patient and treated him with salvage post prostatectomy radiation. He was treated from 08/15/2006 through 10/11/2006. He received a total dose of 73 Gy. The patient was treated with adjuvant total androgen ablation with Casodex and Lupron. The patient's prostate-specific antigen responded to therapy. In October 2006 prostate-specific antigen was 0.02. In February 2007 prostate-specific antigen was 0.01. In June 2007 prostate-specific antigen was less than 0.01. The patient remained Lupron and his prostate-specific antigen from 03/29/2008 was less than 0.1. However on 07/26/2009 prostate- specific antigen was 1.0 and by April 2010 the prostate-specific antigen was 8.53. CT scan of the abdomen and pelvis on June 2010 was stable compared to 2005. Bone scan in March 2011 was negative for metastatic disease. His prostate- specific antigen however continued to rise and was 15.5 in September 2010 and 11 in March 2011. Casodex was added with initial reduction of his prostate-specific antigen. However this again started to rise and the Casodex was discontinued his prostate-specific antigen in January 2012 was 0.87. April 2012 1.13, July 2012 1.23, January 2013 2.93, 06/25/2013 3.09, September 2013 3.44, November 2013 3.89 and February 2014 4.43. However in June 2014 prostate- specific antigen jumped to 8.28 repeated in August at 8.46. Patiently was reimaged with imaging studies showing evidence of bony metastatic disease involving L2, right SI joint, left T7 costovertebral junction. These were asymptomatic. The patient was started on site Zytiga and oral prednisone in September 2014. He was also receiving monthly Xgeva. The patient's prostate- specific antigen did respond in October 2014 5.84 and remained fairly stable through November 2015. In January 2016 prostate-specific antigen increased to 7.67 , April 2016 7.63, June 2016 7.61 in July 2016 8.57. With this rise in prostate-specific antigen his Zytiga was stopped. He is being considered for Xtandi chemotherapy. We are asked to see the patient for consideration of the role of Xofigo. Patient has had recent staging procedures. A bone scan from 09/14/2016 showed intense involvement of the mid sternum, right seventh and 11th ribs. Progressive increase activity overlying the right SI joint region, L2 vertebral body with minimal scattered degenerative activity in the axial and appendicular skeleton. These were consistent with progressive metastatic bony disease. CT scan of the chest from September 28 showed a large sclerotic metastasis within the L2/L3 vertebral body and the sternum. Multiple rib metastases were noted with progression. CT scan of the abdomen and pelvis again showed multiple focal osteoblastic metastatic disease progressed from 2013 and consistent with the bone scan findings in August 2016. A pathologically enlarged left periaortic lymph node was identified measuring 1.4 cm and is stable compared to 2013. The patient has had complaint of bony pain. This is been in the lower back and right hip. Most recently however is a complaint of pain in the left hip which is weightbearing. He listed this pain as a 10. He also has pain in the right hip she lists as an 8. The right hip pain has been present for the past year and the left hip pain only in the last 2-3 weeks. The patient has been started on hydrocodone 5/325 and is taking 1 every 6 hours without significant benefit. We will therefore asked to see the patient today in referral to discuss the role of palliative radiation. Patient completed his sixth Xofigo treatment on 04/25/2017. Generally he tolerated treatments well. He did feel that the treatments helped him in that he was able to walk with less pain. He had previously walked with his back bending forward. With the treatment he feels he is able to walk more upright. He did have some side effects of diarrhea and peripheral edema. These resolved without difficulty. He unfortunately has had a couple of falls in the past few months. He did injure his ribs. He is also noted increased pain in the lumbar spine. He rates this up to a level IX at times after standing for long period of time. He had a recheck bone scan which showed mixed treatment response. However overall progression of skeletal metastasis with increase in uptake associated with the sternal and spinal metastasis since prior exam 09/14/2016. Interval improvement in uptake within the right iliac lesion. Multifocal uptake within several mid anterior left ribs is posttraumatic. Uptake within additional anterior left upper ribs is nonspecific and could be posttraumatic or neoplastic. There had been trauma to the ribs. He has had multiple falls. In reviewing the lower thoracic and lumbar spine the uptake Increased. He did have an increase in the amount of pain in this area. Decision was to go forward with palliative radiation therapy to the lower thoracic and lumbar spine. This was completed 07/09/2017. He received 3000 cGy. Interim History Mr. Tania gallegos has had multiple health issues over the past 6 months. He continues to decline and has severe fatigue. He has reviewed this with medical oncology. He is on prednisone twice daily. This initially helped his energy but has not been as beneficial lately. He now has weakness of his legs. His activity is very limited due to his generalized weakness. His PSA has gradually increased over the past few months. Is now 19. Dr. Ku in medical oncology is going to start him on Xtandi. They are waiting approval by the insurance company. He had been scheduled to go to [facility] for rehabilitation but unfortunately caught the flu. He was very sick and could not undergo the exercise program that would be set forward. He was given a Z- Matthew for intermittent chills and fever. This did help and he steadily improved. He continues to have the fatigue and feels he could not participate in an exercise program at [facility]. Home health nurses do come into the home. There have been issues with back pain. He takes Tylenol arthritis strength. This brings the pain level down from an 8 2 of 4. He feels this works well to control his pain. He also is followed for anemia and that adds to his issues with fatigue. Today he gave an AUA score of 6. He completed and expanded prostate cancer index composite for clinical practice and gave a score of 10 of 12 and urinary incontinence symptoms. He gave a score of 4 of 12 and urinary irritation symptoms. He gave a score of 8 of 12 and bowel symptoms. He gave a score of 12 of 12 and sexual symptoms. He gave a score of 10 of 12 and hormonal vitality symptoms. He had a total of 40 of 60. Allergies Coded Allergies: Penicillins (Verified Allergy, Mild, HIVE'S, 11/27/17) [place] (Verified Allergy, Mild, HIVES, 11/27/17) Aspirin (Verified Allergy, Unknown, HIVES, 11/27/17) [place] (Verified Allergy, Unknown, HIVES, 11/27/17) Tomato (Verified Allergy, Unknown, HIVES, 11/27/17) Egg (Verified Adverse Reaction, Unknown, Diarrhea, 11/28/17) Uncoded Allergies: scramled and fried eggs (Adverse Reaction, Intermediate, diarrhea, 10/23/16 ) Home Medications Scheduled Atorvastatin (Lipitor), 80 MG PO HS Calcium Carbonate-Cholecalcife (Caltrate 600+D), 1 TAB BID Clopidogrel (Plavix), 75 MG PO DAILY Cyanocobalamin (Vitamin B12), 1,000 MCG PO BID Escitalopram (Lexapro), 10 MG PO DAILY AT 1500 Ferrous Sulfate (Kp Ferrous Sulfate), 325 MG PO BID Insulin Glargine (Toujeo Solostar), 55 UNITS HS Insulin Lispro (Human) (Humalog Kwikpen), 1 DOSE SC BIDM Levothyroxine Sodium (Levothyroxine Sodium), 100 MCG PO DAILY Lisinopril (Prinivil), 5 MG PO DAILY Magnesium Oxide (Mag-Ox), 400 MG PO TID Metoprolol Succinate (Toprol Xl), 0.5 TAB PO DAILY Pot Phosphate Monobasic W/ Sod (Phospha 250 Neutral), 1 TAB PO BID Prednisone (Prednisone), 5 MG PO BID Ranitidine (Zantac), 150 MG PO BID Review of Systems Gastrointestinal: Symptoms: WNL GI Comments: occ diarrhea Oral: Symptoms: No Problems Respiratory: Symptoms: SOB With Exertion, Productive Cough Respiratory Comments: " runny nose " Sputum Character: light yellow at times Other Respiratory: coughs at night Urinary: Symptoms: Incontinence Comments: nocturia times 2-3 ,occ burning with urination Skin: Symptoms: No Problems Other Skin Symptoms: " dry skin " Physical Exam Vital Signs Date Time Temp Pulse Resp B/P (MAP) Pulse Ox O2 Delivery O2 Flow Rate FiO2 02/19/18 14:09 36.6 73 18 117/74 99 Fatigue: None General Appearance: no apparent distress Eyes: normal inspection, EOMI ENT: normal ENT inspection, hearing grossly normal Respiratory/Chest: lungs clear, no respiratory distress, no accessory muscle use Cardiovascular: regular rate, rhythm, no gallop, no murmur Extremities: no pedal edema Neurologic/Psychiatric: no motor/sensory deficits, alert, normal mood/affect, + depressed affect Skin: warm/dry Pain Management Patient Reports Pain: Yes Side: Bilateral Pain Location: Back Patient Preferred Pain Scale: 0 - 10 Initial Pain Intensity: 4.0 Pain Management Plan Pain is currently controlled with Tylenol arthritis. Laboratory Laboratory Results: were reviewed Laboratory Comments: PSA reviewed in the interim history. Pathology Pathology Results: not applicable Imaging Imaging Studies: not applicable Assessment & Plan Plan: He will be continuing his follow-up with medical oncology. There is a plan to start Xtandi once there is approval from the insurance company. He has progressively become more fatigued. His health condition has deteriorated on many standpoints. We discussed seeing palliative care to help improve quality of life. Information was given an appointment will be scheduled. He will continue discuss this further with his family. Home health agency continues to help him at home. We asked him to return to our office in 6 months. They may call if they have any questions or concerns. His case was previously discussed with Dr. Worley. He was in agreement for referral of the patient to palliative care. Total Time In Follow-Up I spent 20 minutes speaking to the patient and performing examination. I spent 15 minutes reviewing information and completing this note. Copy To Van Valiente M.D.; Irena Cuello M.D.; Juancarlos Ku M.D.
== END | disposition home or self-care (01) ==
LOC: C.ONC 13:56
PROVIDERS: ATTEND Physician Assistant Medical
DX: Z08 Encounter for follow-up examination after completed treatment for malignant neoplasm (principal); Z92.3 Personal history of irradiation; Z85.46 Personal history of malignant neoplasm of prostate

== ENCOUNTER 2018-03-13 17:49 | Inpatient (IN) | payer OTHER, MEDICARE ==
[~2018-03-13] VITALS: Ht 172.7 cm; Wt 98.3 kg
[~2018-03-13 17:49] MED LIST changes: -INSU1.2I; +INSU1.2I SC; -OSEL75CA23 PO
--- NOTE | 2018-03-13 18:13 | DIAGNOSTIC IMAGING REPORT ---
CHEST ONE VIEW PORTABLE CLINICAL HISTORY: 77 years-old Male presenting with fever. TECHNIQUE: Portable upright AP view of the chest was obtained. COMPARISON: 12/30/2017. FINDINGS: Atherosclerosis of aortic arch. Cardiac silhouette enlarged. Mild prominence of pulmonary vasculature, unchanged. No focal opacity. No large effusion or pneumothorax. Multiple old rib fractures noted on the left. Degenerative changes and scoliotic curvature of the spine. Upper abdomen normal. IMPRESSION: 1. No focal infiltrate to suggest pneumonia. 2. Cardiomegaly. Electronically signed by: Doroteo Rodriges M.D. 03/13/2018 6:12 PM Dictated Date/Time: 03/13/2018 6:11 PM
[2018-03-13] MEDS ORDERED: LISI-461 PO (18:29)
[2018-03-13] MEDS ORDERED: RANI150T2 PO (18:29)
[2018-03-13] MEDS ORDERED: TPRSR/25 PO (18:29)
[2018-03-13] MEDS ORDERED: PLV75 PO (18:29)
[2018-03-13] MEDS ORDERED: APIX1TAB3 PO (18:29)
[2018-03-13] MEDS ORDERED: ULT50 PO (18:29)
[2018-03-13] MEDS ORDERED: PRED-301 PO (18:29)
[2018-03-13] MEDS ORDERED: LXP10 PO (18:29)
[2018-03-13] MEDS ORDERED: CYAN1DRO UT (18:33)
[2018-03-13] MEDS ORDERED: ENZA1CAP PO (18:34)
[2018-03-13] MEDS ORDERED: DIPH1TAB87 PO (18:37)
[2018-03-13 19:17] LABS: ISTAT CREATININE 0.6 mg/dl (0.6-1.3); ISTAT IONIZED CALCIUM 0.99 mmol/l (1.12-1.32)
[2018-03-13 19:17] LABS: HEMATOCRIT 26.3 % (42-52); HEMOGLOBIN 8.2 g/dL (14.0-18.0); MEAN CELL VOLUME 85.1 fL (80-100); MEAN CORPUSCULAR HEMOGLOBIN 26.5 pg (25-34); MEAN CORPUSCULAR HGB CONC 31.2 g/dl (32-36); MEAN PLATELET VOLUME 8.3 fL (7.4-10.4); PLATELET COUNT 374 K/uL (130-400); RED CELL DISTRIBUTION WIDTH SD 56.5 fL (36.4-46.3); WHITE BLOOD COUNT 5.73 K/uL (4.8-10.8)
[2018-03-13 19:26] LABS: INR 1.1 (0.9-1.1)
[2018-03-13 19:37] LABS: BASO % 0.2 %; BASO ABS # 0.01 K/uL (0-0.2); EOS % 0.5 %; EOS ABS # 0.03 K/uL (0-0.5); IG# 0.14 K/uL (0.00-0.02); LYMPH % 8.6 %; LYMPH ABS # 0.49 K/uL (1.2-3.4); MONO % 12.4 %; MONO ABS # 0.71 K/uL (0.11-0.59); NEUT % 75.9 %; NEUT ABS # 4.35 K/uL (1.4-6.5)
[2018-03-13 19:51] LABS: ALBUMIN 2.3 gm/dl (3.4-5.0); CALCIUM 7.4 mg/dl (8.5-10.1); CREATININE 0.76 mg/dl (0.60-1.40)
[2018-03-13 20:04] LABS: CKMB 0.6 ng/ml (0.5-3.6); TOTAL PROTEIN 6.1 gm/dl (6.4-8.2)
[2018-03-13] MEDS ORDERED: CEFTRIAXONE SOD INJ 1 GM ADDVIAL IV STA (20:08)
--- NOTE | 2018-03-13 20:49 | EMERGENCY ROOM VISIT NOTE ---
History Report prepared by Pierre: Truong Trent Under the Supervision of: Dr. Francis Lopes D.O. First contact with patient: 17:47 Chief Complaint: FEVER History of Present Illness The patient is a 77 year old male who presents to the Emergency Room via EMS from home with complaints of worsening weakness with fevers/chills that began last night. He states that his has recorded a fever of 103.0. The patient is complaining of dizziness as well. The patient is currently on oral chemotherapy for prostate cancer. He denies any other headache, change in vision , fevers, chest pain, shortness of breath, nausea, vomiting, diarrhea, pain with urination, and melena. Family notes that he has been peeing much more frequently over the past 24 hours. He has no other complaints at this time. Source of History: patient, EMS Onset: Last night Position: other (Global) Quality: other (Fever/weakness) Timing: worsening Associated Symptoms: + diaphoresis, No chest pain, No SOB, No nausea, No vomiting Review of Systems See HPI for pertinent positives & negatives. A total of 10 systems reviewed and were otherwise negative. Past Medical & Surgical Medical Problems: (1) Anemia (2) Anticoagulated on Coumadin (3) Chest pain radiating to arm (4) Coronary artery disease with history of myocardial infarction without history of CABG (5) Diabetes (6) GERD (gastroesophageal reflux disease) (7) Hyperlipidemia (8) Hypertension (9) Hypophosphatemia (10) Hypothyroidism (11) NSTEMI, initial episode of care (12) Osteoarthritis (13) Paroxysmal atrial fibrillation (14) Prostate cancer (15) Sepsis Surgical Problems: (1) S/P prostatectomy (2) Stented coronary artery Family History Diabetes mellitus Hypertension Social History Smoking Status: Never Smoker Alcohol Use: none Drug Use: none Marital Status: Housing Status: lives with significant other Occupation Status: retired Current/Historical Medications Scheduled Apixaban (Eliquis), 5 MG PO BID Atorvastatin (Lipitor), 80 MG PO HS Clopidogrel Bisulfate (Clopidogrel), 75 MG PO DAILY Cyanocobalamin (Vitamin B12), 2 DROPS UT QPM Enzalutamide (Xtandi), 160 MG PO QD@1600 Escitalopram Oxalate (Escitalopram Oxalate), 10 MG PO DAILY Insulin Glargine (Toujeo Solostar), 35 UNITS SC HS Insulin Lispro (Human) (Humalog Kwikpen), 1 DOSE SC BIDM Levothyroxine Sodium (Levothyroxine Sodium), 100 MCG PO DAILY Lisinopril (Lisinopril), 5 MG PO DAILY Magnesium Oxide (Mag-Ox), 400 MG PO BID Metoprolol Succinate (Metoprolol Succinate ER), 12.5 MG PO DAILY Pot Phosphate Monobasic W/ Sod (Phospha 250 Neutral), 1 TAB PO BID Prednisone (Prednisone), 5 MG PO UD Ranitidine HCl (Ranitidine HCl), 150 MG PO BID Scheduled PRN Diphenhydramine Hcl (Benadryl Allergy), 25 MG PO UD PRN for Allergic Reaction Tramadol HCl (Tramadol HCl), 50 MG PO Q6-8HRS PRN for Pain Allergies Coded Allergies: Penicillins (Verified Allergy, Mild, HIVE'S, 11/27/17) [place] (Verified Allergy, Mild, HIVES, 11/27/17) Aspirin (Verified Allergy, Unknown, HIVES, 11/27/17) [place] (Verified Allergy, Unknown, HIVES, 11/27/17) Tomato (Verified Allergy, Unknown, HIVES, 11/27/17) Egg (Verified Adverse Reaction, Unknown, Diarrhea, 11/28/17) Uncoded Allergies: scramled and fried eggs (Adverse Reaction, Intermediate, diarrhea, 10/23/16 ) Physical Exam Vital Signs Date Time Temp Pulse Resp B/P (MAP) Pulse Ox O2 Delivery O2 Flow Rate FiO2 03/13/18 20:24 37.6 80 27 120/59 95 Room Air 03/13/18 19:05 69 03/13/18 17:57 36.9 77 22 163/57 96 Room Air Physical Exam GENERAL: Sitting up in bed, alert, chronically-ill appearing, well nourished, no distress, non-toxic EYE EXAM: normal conjunctiva. OROPHARYNX: no exudate, no erythema, lips, buccal mucosa, and tongue normal and mucous membranes are DRY NECK: supple, no nuchal rigidity, no adenopathy, non-tender LUNGS: There is faint wheezing in the right lung base. Normal chest wall mechanics HEART: no murmurs, S1 normal and S2 normal ABDOMEN: abdomen soft, non-tender, normo-active bowel sounds, no masses, no rebound or guarding. BACK: Back is symmetrical on inspection and there is no deformity, no midline tenderness, no CVA tenderness. SKIN: no rashes and no bruising UPPER EXTREMITIES: upper extremities are grossly normal. LOWER EXTREMITIES: No pitting edema. Calves are equal bilaterally NEURO EXAM: Normal sensorium, cranial nerves II-XII grossly intact, normal speech, no gross weakness of arms, no gross weakness of legs. Medical Decision & Procedures ER Provider Diagnostic Interpretation: Radiology results as stated below per my review and the radiologist's interpretation: CHEST ONE VIEW PORTABLE CLINICAL HISTORY: 77 years-old Male presenting with fever. TECHNIQUE: Portable upright AP view of the chest was obtained. COMPARISON: 12/30/2017. FINDINGS: Atherosclerosis of aortic arch. Cardiac silhouette enlarged. Mild prominence of pulmonary vasculature, unchanged. No focal opacity. No large effusion or pneumothorax. Multiple old rib fractures noted on the left. Degenerative changes and scoliotic curvature of the spine. Upper abdomen normal. IMPRESSION: 1. No focal infiltrate to suggest pneumonia. 2. Cardiomegaly. Electronically signed by: Doroteo Rodriges M.D. 03/13/2018 6:12 PM Dictated Date/Time: 03/13/2018 6:11 PM Laboratory Results 03/13/18 18:56 Red Blood Count 3.09, Mean Corpuscular Volume 85.1, Mean Corpuscular Hemoglobin 26.5, Mean Corpuscular Hemoglobin Concent 31.2, Mean Platelet Volume 8.3, Neutrophils (%) (Auto) 75.9, Lymphocytes (%) (Auto) 8.6, Monocytes (%) (Auto) 12.4, Eosinophils (%) (Auto) 0.5, Basophils (%) (Auto) 0.2, Neutrophils # (Auto ) 4.35, Lymphocytes # (Auto) 0.49, Monocytes # (Auto) 0.71, Eosinophils # (Auto ) 0.03, Basophils # (Auto) 0.01 03/13/18 18:56 Test 03/13/18 18:31 03/13/18 18:56 03/13/18 18:59 03/13/18 19:03 Bedside Glucose 197 mg/dl (70-99) White Blood Count 5.73 K/uL (4.8-10.8) Red Blood Count 3.09 M/uL (4.7-6.1) Hemoglobin 8.2 g/dL (14.0-18.0) Hematocrit 26.3 % (42-52) Mean Corpuscular Volume 85.1 fL (80-100) Mean Corpuscular Hemoglobin 26.5 pg (25-34) Mean Corpuscular Hemoglobin Concent 31.2 g/dl (32-36) Platelet Count 374 K/uL (130-400) Mean Platelet Volume 8.3 fL (7.4-10.4) Neutrophils (%) (Auto) 75.9 % Lymphocytes (%) (Auto) 8.6 % Monocytes (%) (Auto) 12.4 % Eosinophils (%) (Auto) 0.5 % Basophils (%) (Auto) 0.2 % Neutrophils # (Auto) 4.35 K/uL (1.4-6.5) Lymphocytes # (Auto) 0.49 K/uL (1.2-3.4) Monocytes # (Auto) 0.71 K/uL (0.11-0.59) Eosinophils # (Auto) 0.03 K/uL (0-0.5) Basophils # (Auto) 0.01 K/uL (0-0.2) RDW Standard Deviation 56.5 fL (36.4-46.3) RDW Coefficient of Variation 18.0 % (11.5-14.5) Immature Granulocyte % (Auto) 2.4 % Immature Granulocyte # (Auto) 0.14 K/uL (0.00-0.02) Prothrombin Time 11.3 SECONDS (9.0-12.0) Prothromb Time International Ratio 1.1 (0.9-1.1) Est Creatinine Clear Calc Drug Dose 92.9 ml/min Estimated GFR () 102.0 Estimated GFR (Non- 88.0 BUN/Creatinine Ratio 14.2 (10-20) Calcium Level 7.4 mg/dl (8.5-10.1) Magnesium Level 1.9 mg/dl (1.8-2.4) Total Bilirubin 0.8 mg/dl (0.2-1) Direct Bilirubin 0.2 mg/dl (0-0.2) Aspartate Amino Transf (AST/SGOT) 52 U/L (15-37) Alanine Aminotransferase (ALT/SGPT) 13 U/L (12-78) Alkaline Phosphatase 872 U/L (45-117) Total Creatine Kinase 92 U/L (39-308) Creatine Kinase MB 0.6 ng/ml (0.5-3.6) Creatine Kinase MB Ratio 0.7 (0-3.0) Troponin I 0.151 ng/ml (0-0.045) Total Protein 6.1 gm/dl (6.4-8.2) Albumin 2.3 gm/dl (3.4-5.0) Bedside Lactic Acid Venous 1.50 mmol/L (0.90-1.70) Bedside Hemoglobin 8.5 g/dl (14.0-18.0) Bedside Hematocrit 25 % (42-52) Bedside Sodium 133 mEq/L (135-144) Bedside Potassium 4.0 mEq/L (3.3-5.0) Bedside Chloride 100 mEq/L (101-112) Bedside Total CO2 20 mEq/l (24-31) Anion Gap 17.0 mmol/L (16-25) Bedside Blood Urea Nitrogen 10 mg/dl (7-18) Bedside Creatinine 0.6 mg/dl (0.6-1.3) Bedside Glucose (other) 184 mg/dl (70-99) Bedside Ionized Calcium (Donna) 0.99 mmol/l (1.12-1.32) Laboratory results per my review. Medications Administered Medications (Trade) Dose Ordered Sig/Jean-Claude Route Start Time Stop Time Status Last Admin Dose Admin Ceftriaxone Sodium (Rocephin Inj) 1 gm NOW STAT IV 03/13/18 20:08 03/13/18 20:09 DC 03/13/18 20:24 1 GM ECG Per My Interpretation Indication: other (Fever) Rate (beats per minute): 102 Rhythm: sinus tachycardia Findings: PVC, Q waves (Inferior), other (Normal axis) ED Course ED COURSE: Vital signs were reviewed and showed hypertensive vitals. The patients medical record was reviewed The above diagnostic studies were performed and reviewed. ED treatments and interventions as stated above. 1750: The patient was evaluated in room B10. A complete history and physical examination was performed. 2: I updated the patient. Family was at bedside, they note that the patient was peeing much more frequently last night. 2007: Ordered Rocephin 1 gm IV. 2015: I discussed the case with Dr. Turner [facility] Hospitalist. He will evaluate the patient for further treatment. []: Upon reevaluation, the patient is [].I discussed my findings with the [ patient] and [] understands and agrees with the treatment plan. Based on the patients age, coexisting illnesses, exam and lab findings the decision to treat as an [inpatient][outpatient] was made. The patient remained stable while under my care. [The patient appeared well at the time of discharge.] [The patient will be evaluated for further management.] Medical Decision Differential Diagnosis includes but is not limited to dehydration, stroke, anemia, hypoglycemia, hyponatremia, hypernatremia, urinary tract infection, pneumonia, bronchitis, sepsis, gastroenteritis, additional abdominal pathology, metabolic abnormalities and infections. Patient is a 77-year-old male with past medical history of metastatic prostate CA that presents to ER with fevers of 103 at home. He does take oral chemo medications. He does admit to shaking chills. Hemoglobin of 8.2 which is trending down from baseline of 10. BMP along with LFTs and troponin with was remarkable for a troponin of 0.151. Chest x-ray was unremarkable. Patient denies any chest pain or shortness of breath. I do believe that this is likely related to the fevers. Myocarditis unlikely. Patient family were updated at bedside and admitted to internal medicine for further workup of his elevated troponin, fever and anemia. Medication Reconcilliation Current Medication List: was personally reviewed by me Blood Pressure Screening Patient's blood pressure: Elevated blood pressure Blood pressure disposition: Elevated BP felt to be situational Consults Time Called: 2014 Consulting Physician: Dr. Johnny ABAD Hospitalist. Returned Call: 2014 I discussed the case with Dr. Johnny ABAD Hospitalist. He will evaluate the patient for further treatment. Impression Primary Impression: NSTEMI, initial episode of care Additional Impressions: Fever Anemia Scribe Attestation The scribe's documentation has been prepared under my direction and personally reviewed by me in its entirety. I confirm that the note above accurately reflects all work, treatment, procedures, and medical decision making performed by me. Departure Information Dispostion Being Evaluated By Hospitalist Referrals Van Valiente M.D. (PCP) Patient Instructions My [facility] Problem Qualifiers Additional Impressions: Fever Fever type: unspecified Qualified Codes: R50.9 - Fever, unspecified Anemia Anemia type: unspecified type Qualified Codes: D64.9 - Anemia, unspecified
[2018-03-13] MEDS ORDERED: ONDANSETRON INJ 2 MG/ML 2 ML VIAL IV PRN (21:30)
[2018-03-13] MEDS ORDERED: POLYETHYLENE (MIRALAX) 17 GM PACK PO PRN (21:30)
[2018-03-13] MEDS ORDERED: MAGNESIUM HYDROXIDE SUSP 30 ML UDC PO PRN (21:30)
[2018-03-13] MEDS ORDERED: ACETAMINOPHEN 325 MG TAB PO PRN (21:30)
[2018-03-13] MEDS ORDERED: ALUMINUM/MAGNESIUM/SIMETH (MAALOX MAX) 30 ML UDC PO PRN (21:30)
[2018-03-13] MEDS ORDERED: VANCOMYCIN CONSULT ACTIVE PRN (21:30)
[2018-03-13 22:07] VITALS: BMI 33.3
--- NOTE | 2018-03-13 22:08 | History and Physical ---
History & Physical Date & Time of Service: Mar 13, 2018 at 22:08 Chief Complaint: Primary Care Physician: Van Valiente M.D. History of Present Illness Source: patient, family, spouse The patient is a 77-year-old male who presents to the emergency department via EMS after developing worsening weakness, dizziness, with fevers and chills that began yesterday evening, with a maximum temperature of 103.0F as noted by his . He is on his third week of oral chemotherapy for prostate cancer with Dr. Juancarlos Ku. He also follows with Dr. Red from cardiology and Dr. Van Valiente is his PCP. He has not had any recent travels or sick exposures. The family also reports that the patient has been very fatigued over the past year, but in particularly has been fatigued over the past week or so. The patient himself is not able to contribute significantly to the HPI due to severe fatigue and generally feeling unwell. Past Medical/Surgical History Medical Problems: (1) Abrasion of left arm (2) Acute bronchitis (3) Anemia (4) Anticoagulated on Coumadin (5) Back pain (6) Bronchitis (7) Bursitis of left hip (8) Chest pain radiating to arm (9) Closed head injury (10) Coronary artery disease with history of myocardial infarction without history of CABG (11) Dehydration (12) Depression (13) Diabetes (14) Encounter for removal of sutures (15) Epigastric abdominal pain (16) Fall (17) Foot laceration (18) GERD (gastroesophageal reflux disease) (19) Headache (20) Hip bursitis, left (21) Hyperglycemia (22) Hyperlipidemia (23) Hypertension (24) Hypomagnesemia (25) Hypophosphatemia (26) Hypothyroidism (27) Infection of skin (28) Knee effusion, left (29) Knee pain (30) Left lower lobe pneumonia (31) Left rib fracture (32) NSTEMI, initial episode of care (33) Osteoarthritis (34) Paroxysmal atrial fibrillation (35) Pneumonia (36) Poorly controlled diabetes mellitus (37) Prostate cancer (38) Ribs, multiple fractures (39) Right knee pain (40) Sepsis (41) Shoulder contusion (42) Skin tear of right upper extremity (43) Substernal chest pain (44) Syncope (45) Viral syndrome Surgical Problems: (1) S/P prostatectomy (2) Stented coronary artery (3) Total knee replacement status Family History Diabetes mellitus Hypertension Social History Smoking Status: Never Smoker Smokeless Tobacco Use: No Alcohol Use: none Drug Use: none Marital Status: Housing status: lives with family Occupational Status: retired Immunizations History of Influenza Vaccine: No History of Tetanus Vaccine?: YEARS AGO History of Pneumococcal: No History of Hepatitis B Vaccine: No Allergies Coded Allergies: Penicillins (Verified Allergy, Mild, HIVE'S, 11/27/17) [place] (Verified Allergy, Mild, HIVES, 11/27/17) Aspirin (Verified Allergy, Unknown, HIVES, 11/27/17) [place] (Verified Allergy, Unknown, HIVES, 11/27/17) Tomato (Verified Allergy, Unknown, HIVES, 11/27/17) Egg (Verified Adverse Reaction, Unknown, Diarrhea, 11/28/17) Uncoded Allergies: scramled and fried eggs (Adverse Reaction, Intermediate, diarrhea, 10/23/16 ) Home Medications Scheduled Apixaban (Eliquis), 5 MG PO BID Atorvastatin (Lipitor), 80 MG PO HS Clopidogrel Bisulfate (Clopidogrel), 75 MG PO DAILY Cyanocobalamin (Vitamin B12), 2 DROPS UT QPM Enzalutamide (Xtandi), 160 MG PO QD@1600 Escitalopram Oxalate (Escitalopram Oxalate), 10 MG PO DAILY Insulin Glargine (Toujeo Solostar), 35 UNITS SC HS Insulin Lispro (Human) (Humalog Kwikpen), 1 DOSE SC BIDM Levothyroxine Sodium (Levothyroxine Sodium), 100 MCG PO DAILY Lisinopril (Lisinopril), 5 MG PO DAILY Magnesium Oxide (Mag-Ox), 400 MG PO BID Metoprolol Succinate (Metoprolol Succinate ER), 12.5 MG PO DAILY Pot Phosphate Monobasic W/ Sod (Phospha 250 Neutral), 1 TAB PO BID Prednisone (Prednisone), 5 MG PO UD Ranitidine HCl (Ranitidine HCl), 150 MG PO BID Scheduled PRN Diphenhydramine Hcl (Benadryl Allergy), 25 MG PO UD PRN for Allergic Reaction Tramadol HCl (Tramadol HCl), 50 MG PO Q6-8HRS PRN for Pain Review of Systems The patient is not well enough to be able to respond, but family reports that he denies chest pain, palpitations, shortness of breath, dyspnea on exertion, cough, lower extremity swelling, sore throat, chills, sweats, nausea, vomiting, diarrhea, constipation, abdominal pain, pelvic pain, blood in urine or stool, dysuria, urinary frequency or urgency, loss of consciousness, rash, abnormal bruising or bleeding, imbalance, focal weakness, numbness or tingling in arms or legs, generalized arthralgias or myalgias, back or neck pain, or night sweats. The review of systems is otherwise negative other than for that already noted above, and at least 10 systems have been reviewed. Physical Exam Vital Signs Date Time Temp Pulse Resp B/P (MAP) Pulse Ox O2 Delivery O2 Flow Rate FiO2 03/13/18 21:59 37.6 80 27 120/59 95 03/13/18 20:24 37.6 80 27 120/59 95 Room Air 03/13/18 19:05 69 03/13/18 17:57 36.9 77 22 163/57 96 Room Air The patient is awake, very fatigued and pale appearing, normocephalic and atraumatic, lying in bed and in no acute distress. HEENT--PERRL, EOMI, mucous membranes and oropharynx dry. Neck--supple. No JVD. No bruits. Thyroid normal, trachea midline, no adenopathy. Heart--normal S1 and S2. No murmurs, rubs or gallops. Lungs--clear bilaterally, no respiratory distress, no accessory muscle use. Abdomen--normal bowel sounds and soft. Nontender. Nondistended, no hernias or masses, no organomegaly. Extremities--no cyanosis or clubbing. No edema. There are good distal pulses b/ l. Dermatologic--normal skin turgor, appears pale. Neurologic--cranial nerves II through XII grossly intact. Rheumatologic--normal range of motion. Psychiatric--very fatigued. Diagnostics Laboratory Results Results Past 24 Hours Test 03/13/18 18:31 03/13/18 18:56 03/13/18 18:59 03/13/18 19:03 Range/Units Bedside Glucose 197 70-99 mg/dl White Blood Count 5.73 4.8-10.8 K/uL Red Blood Count 3.09 4.7-6.1 M/uL Hemoglobin 8.2 14.0-18.0 g/dL Hematocrit 26.3 42-52 % Mean Corpuscular Volume 85.1 80-100 fL Mean Corpuscular Hemoglobin 26.5 25-34 pg Mean Corpuscular Hemoglobin Concent 31.2 32-36 g/dl Platelet Count 374 130-400 K/uL Mean Platelet Volume 8.3 7.4-10.4 fL Neutrophils (%) (Auto) 75.9 % Lymphocytes (%) (Auto) 8.6 % Monocytes (%) (Auto) 12.4 % Eosinophils (%) (Auto) 0.5 % Basophils (%) (Auto) 0.2 % Neutrophils # (Auto) 4.35 1.4-6.5 K/uL Lymphocytes # (Auto) 0.49 1.2-3.4 K/uL Monocytes # (Auto) 0.71 0.11-0.59 K/uL Eosinophils # (Auto) 0.03 0-0.5 K/uL Basophils # (Auto) 0.01 0-0.2 K/uL RDW Standard Deviation 56.5 36.4-46.3 fL RDW Coefficient of Variation 18.0 11.5-14.5 % Immature Granulocyte % (Auto) 2.4 % Immature Granulocyte # (Auto) 0.14 0.00-0.02 K/uL Prothrombin Time 11.3 9.0-12.0 SECONDS Prothromb Time International Ratio 1.1 0.9-1.1 Sodium Level 133 136-145 mmol/L Potassium Level 4.0 3.5-5.1 mmol/L Chloride Level 103 98-107 mmol/L Carbon Dioxide Level 20 21-32 mmol/L Anion Gap 10.0 17.0 16-25 mmol/L Blood Urea Nitrogen 11 7-18 mg/dl Creatinine 0.76 0.60-1.40 mg/dl Est Creatinine Clear Calc Drug Dose 92.9 ml/min Estimated GFR () 102.0 Estimated GFR (Non- 88.0 BUN/Creatinine Ratio 14.2 10-20 Random Glucose 176 70-99 mg/dl Calcium Level 7.4 8.5-10.1 mg/dl Magnesium Level 1.9 1.8-2.4 mg/dl Total Bilirubin 0.8 0.2-1 mg/dl Direct Bilirubin 0.2 0-0.2 mg/dl Aspartate Amino Transf (AST/SGOT) 52 15-37 U/L Alanine Aminotransferase (ALT/SGPT) 13 12-78 U/L Alkaline Phosphatase 872 45-117 U/L Total Creatine Kinase 92 39-308 U/L Creatine Kinase MB 0.6 0.5-3.6 ng/ml Creatine Kinase MB Ratio 0.7 0-3.0 Troponin I 0.151 0-0.045 ng/ml Total Protein 6.1 6.4-8.2 gm/dl Albumin 2.3 3.4-5.0 gm/dl Bedside Lactic Acid Venous 1.50 0.90-1.70 mmol/L Bedside Hemoglobin 8.5 14.0-18.0 g/dl Bedside Hematocrit 25 42-52 % Bedside Sodium 133 135-144 mEq/L Bedside Potassium 4.0 3.3-5.0 mEq/L Bedside Chloride 100 101-112 mEq/L Bedside Total CO2 20 24-31 mEq/l Bedside Blood Urea Nitrogen 10 7-18 mg/dl Bedside Creatinine 0.6 0.6-1.3 mg/dl Bedside Glucose (other) 184 70-99 mg/dl Bedside Ionized Calcium (Donna) 0.99 1.12-1.32 mmol/l Microbiology Results 03/13/18 Blood Culture, Received Pending 03/13/18 Blood Culture, Received Pending Diagnostic Radiology Patient Name: JOSE GUERRA Unit Number: [id number] Dictated: 03/13/181810 Transcribed: 03/13/181810 PBS Printed Date/Time: [~ rep prt dt]/[~ rep prt tm] [~ rep ct labl] - [~ rep ct ivnm] [facility] [place] [address] Dictated: 03/13/181810 Transcribed: 03/13/181810 PBS Printed Date/Time: [~ rep prt dt]/[~ rep prt tm] [~ rep ct labl] - [~ rep ct ivnm] [~ rep ct add3]] CHEST ONE VIEW PORTABLE CLINICAL HISTORY: 77 years-old Male presenting with fever. TECHNIQUE: Portable upright AP view of the chest was obtained. COMPARISON: 12/30/2017. FINDINGS: Atherosclerosis of aortic arch. Cardiac silhouette enlarged. Mild prominence of pulmonary vasculature, unchanged. No focal opacity. No large effusion or pneumothorax. Multiple old rib fractures noted on the left. Degenerative changes and scoliotic curvature of the spine. Upper abdomen normal. IMPRESSION: 1. No focal infiltrate to suggest pneumonia. 2. Cardiomegaly. Electronically signed by: Doroteo Rodriges M.D. 03/13/2018 6:12 PM Dictated Date/Time: 03/13/2018 6:11 PM The status of this report is Signed. Draft = Not yet reviewed or approved by Radiologist. Signed = Reviewed and approved by Radiologist. <AttendingPhy></AttendingPhy> <FamilyPhy></FamilyPhy> <PrimaryPhy>Van Valiente M.D.</PrimaryPhy> <UnitNumber>[id number]</UnitNumber> <VisitNumber> [id number]</VisitNumber> <PatientName>JOSE GUERRA L</PatientName> < DateOfBirth>1940</DateOfBirth> <Location>C.EDB</Location> <ServiceDate></ServiceDate> <MNE>ESINDI</MNE> <OrderingPhy>Francis Lopes DO</ OrderingPhy> <OrderingPhyMNE>f rep ord dr foote</OrderingPhyMNE> <DictatingPhyMNE> f rep dict dr foote</DictatingPhyMNE> <CCListMNE>f rep ct mne</CCListMNE> < AdmittingPhyMNE>f pt admit dr foote</AdmittingPhyMNE> <AttendingPhyMNE>f pt attend dr foote</AttendingPhyMNE> <ConsultingPhyMNE>f pt consult dr foote</ConsultingPhyMNE> <FamilyPhyMNE>f pt fam dr foote</FamilyPhyMNE> <OtherPhyMNE>f pt other dr foote</OtherPhyMNE> < PrimaryPhyMNE>f pt prim care dr foote</PrimaryPhyMNE> <ReferringPhyMNE>f pt referring dr foote</ReferringPhyMNE> EKG JOSE GUERRA ID:[id number] 19-APR-2018 18:43:44 [facility] Sinus tachycardia with frequent , and consecutive Premature ventricular complexes Inferior infarct (cited on or before 17-JUN-2017) Cannot rule out Anterior infarct (cited on or before 17-JUN-2017) Prolonged QT Nonspecific T wave abnormality Abnormal ECG When compared with ECG of 30-DEC-2017 20:19, Premature ventricular complexes are now Present Vent. rate has increased BY 34 BPM Nonspecific T wave abnormality now evident in Anterolateral leads ... 25mm/s 10mm/mV 150Hz 8.0 SP2 12SL 241 MÓNICA: 0 Referred by: Referred Self Confirmed By: ELBA PEREZ Vent. rate 102 BPM NC interval 154 ms QRS duration 76 ms QT/QTc 438/570 ms P-R-T axes 38 0 58 1940 (77 yr) Male 109in 1lb Room:0 Loc:15 Teradata Developer:LISE Mosley ind: Impression Assessment and Plan NSTEMI/CAD/history of myocardial infarction without history of CABG/paroxysmal atrial fibrillation/chronic anticoagulation with Coumadin-- The patient will be admitted to telemetry for serial cardiac enzymes, serial EKG's, cardiac rhythm monitoring and a 2-D echocardiogram with Dopplers. Suspect his current elevated troponin is secondary to supply demand mismatch. 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 Continue Plavix. For now hold apixaban dose this evening until verification of no source of bleeding. Continue metoprolol succinate 12.5 mg p.o. every morning with hold parameters. Hold lisinopril due to borderline low blood pressure. Prostate cancer/on week 3 of oral chemotherapy/symptomatic anemia/presumptive sepsis due to UTI-- Follow urine culture and sensitivity. Placed on vancomycin IV, aztreonam IV and levofloxacin IV. Patient is presently on enzalutamide 160 mg daily Will hold prednisone 5 mg daily and placed on stress dose hydrocortisone 100 mg IV every 8 hours. Consult his oncologist Dr. Juancarlos Ku. Diabetes mellitus-- Hold Toujeo 35 units subcu at bedtime due to poor intake. Place on Accu-Cheks before meals and at bedtime with NovoLog coverage per scale. Hypothyroidism-- Continue levothyroxine sodium 100 mcg p.o. daily. Hyperlipidemia-- Continue atorvastatin 80 mg p.o. at bedtime. GERD-- Continue ranitidine 150 mg p.o. twice daily. Depression-- Continue Lexapro 10 mg p.o. daily. Advanced Directives Existing Advance Directive: No Existing Living Will: No Existing Power of Director Consumer: No Resuscitation Status VTE Prophylaxis Will order VTE Prophylaxis: Yes Social Service Consult Cancer Patient Under [place]
[2018-03-13 22:25] VITALS: BP 124/76; PULSE 70; TEMP 37.4; O2SAT 95
[2018-03-13] MEDS ORDERED: VANCOMYCIN IV 2,500 MG in SODIUM CHLORIDE 0.9% 500ML 500 ML IV SCH (22:30)
[2018-03-13] MEDS ORDERED: NSS + 20MEQ KCL 1000ML 1,000 ML IV SCH (23:00)
[2018-03-13] MEDS: HYDROCORTISONE IV 100 MG in SYRINGE 0 ML IV SCH (23:07)
[2018-03-13 23:38] VITALS: BP 118/72; PULSE 66; TEMP 36.7; O2SAT 96
[2018-03-14] VITALS (16 sets, daily range): BP systolic 108–153; BP diastolic 59–81; PULSE 60–85; TEMP 35.9–36.7; O2SAT 93–98; Ht 172.7 cm; Wt 98.3 kg
[2018-03-14] MEDS ORDERED: LEVOFLOXACIN / D5W 500 MG in PREMIXED IN D5W 100 ML IV SCH (02:00)
[2018-03-14] MEDS: AZTREONAM IV 1,000 MG in DEXTROSE 5% 100ML 100 ML IV SCH ×3 (02:11→15:34)
[2018-03-14 04:23] LABS: HEMATOCRIT 25.6 % (42-52); MEAN CELL VOLUME 85.6 fL (80-100); MEAN CORPUSCULAR HEMOGLOBIN 26.8 pg (25-34); MEAN CORPUSCULAR HGB CONC 31.3 g/dl (32-36); MEAN PLATELET VOLUME 8.5 fL (7.4-10.4); PLATELET COUNT 348 K/uL (130-400); RED CELL DISTRIBUTION WIDTH CV 17.7 % (11.5-14.5); WHITE BLOOD COUNT 5.11 K/uL (4.8-10.8)
[2018-03-14 04:41] LABS: CALCIUM 7.3 mg/dl (8.5-10.1); CREATININE 0.71 mg/dl (0.60-1.40); POTASSIUM 4.6 mmol/L (3.5-5.1)
[2018-03-14 04:43] LABS: INR 1.1 (0.9-1.1); PTT PATIENT 37.1 SECONDS (21.0-31.0)
[2018-03-14 05:09] LABS: BASO % 0.2 %; BASO ABS # 0.01 K/uL (0-0.2); EOS % 0.2 %; EOS ABS # 0.01 K/uL (0-0.5); IG# 0.16 K/uL (0.00-0.02); LYMPH % 7.4 %; LYMPH ABS # 0.38 K/uL (1.2-3.4); MONO % 7.6 %; MONO ABS # 0.39 K/uL (0.11-0.59); NEUT % 81.5 %; NEUT ABS # 4.16 K/uL (1.4-6.5)
[2018-03-14] MEDS: HYDROCORTISONE IV 100 MG in SYRINGE 0 ML IV SCH ×2 (05:44→12:53)
[2018-03-14] MEDS: LEVOTHYROXINE 100 MCG TAB PO SCH (05:44)
--- NOTE | 2018-03-14 07:56 | DIAGNOSTIC IMAGING REPORT ---
(CHEST) THORAX WITHOUT CT DOSE: HISTORY: Prostate cancer. fever on chemo TECHNIQUE: Multiaxial CT images of the chest were performed without contrast. A dose lowering technique was utilized adhering to the principles of ALARA. COMPARISON: Chest CT 09/28/2016. FINDINGS: Trace mucoid material within the proximal trachea. Otherwise, the central airways are patent. No pneumothorax. Mild dependent changes seen at the lung bases. A few scattered subcentimeter pulmonary nodules with the largest in the right lung apex measuring 5 mm. This is best seen on image 57. Some of these are new compared to the prior study. Multiple scattered areas of osteoblastic metastatic disease seen throughout the visualized osseous structures. This includes the right humerus. Healing left 11th rib fracture which is pathologic. No mediastinal or hilar lymphadenopathy. No pericardial effusions. Normal caliber thoracic aorta. There are coronary artery calcifications. Trace right pleural effusion. IMPRESSION: 1. Extensive osteoblastic metastatic disease. 2. No focal lung consolidations to suggest pneumonia. 3. Trace right pleural effusion. 4. A few scattered subcentimeter pulmonary nodules with the largest in the right lung apex measuring 5 mm. A few of these are new compared to the prior study but remain indeterminate. Please refer the chart below for recommended follow-up. Please refer to below summary of Fleischner criteria recommendations for follow-up of incidental CT nodules (Cleopatra Knutson, Guidelines for management of small pulmonary nodules detected on CT scans: A statement from the Fleischner Society, Radiology 237: [phone].) SOLID NODULES Solitary nodule size: <6 mm * Low risk patients: no follow-up needed * high risk patients: optional CT at 12 months Solitary nodule size: 6-8 mm * Low risk patients: follow-up at 6-12 months, then consider further follow-up at 18-24 months * high risk patients: initial follow-up CT at 6-12 months and then at 18-24 months if no change Solitary nodule size: >8 mm * either low or high risk patients - consider follow-up CT at 3 months, and/or CT-PET, and/or biopsy Multiple nodules size: <6 mm * Low risk patients: no routine follow-up * high risk patients: optional CT at 12 months Multiple nodules size: 6-8 mm * Low risk patients: follow-up at 3-6 months, then consider further follow-up at 18-24 months * high risk patients: follow-up at 3-6 months, then at 18-24 months if no change Multiple nodules size: >8 mm * Low risk patients: follow-up at 3-6 months, then consider further follow-up at 18-24 months * high risk patients: follow-up at 3-6 months, then at 18-24 months if no change Note: newly detected indeterminate nodule in persons 35 years of age or older. * Low risk patients: minimal or absent history of smoking and/or other known risk factors * high risk patients: history of smoking or of other known risk factors (e.g. first degree relative with lung cancer, or exposure to asbestos, radon, uranium) * if a nodule up to 8 mm is partly solid or is ground glass further follow-up is required after 24 months to exclude possible slow growing adenocarcinoma ([place]) SUBSOLID NODULES Solitary pure ground-glass nodule * nodule size <6 mm - no CT follow-up required * nodule size >=6 mm - follow-up CT at 6-12 months, then every 2 years until 5 years Solitary part-solid nodule * nodule size <6 mm - no CT follow-up required * nodule size >=6 mm - follow-up CT at 3-6 months. If unchanged, and solid component remains <6 mm, then annual follow-up for 5 years Multiple subsolid nodules * nodule size <6 mm - follow-up CT at 3-6 months, consider further follow-up at 2 and 4 years if stable * nodule size >=6 mm - follow-up CT at 3-6 months, subsequent management based on the most suspicious nodule(s) Electronically signed by: Panda Yanez M.D. 03/14/2018 7:55 AM Dictated Date/Time: 03/14/2018 7:47 AM
--- NOTE | 2018-03-14 08:18 | DIAGNOSTIC IMAGING REPORT ---
ABD/PELVIS NO IV OR ORAL CONT CLINICAL HISTORY: 77 years-old Male presenting with fever on chemo, prostate cancer. TECHNIQUE: Multidetector CT of the abdomen and pelvis was performed without the use of intravenous contrast. IV contrast: None. A dose lowering technique was used consistent with the principles of ALARA (as low as reasonably achievable). COMPARISON: 09/28/2016. CT DOSE (mGy.cm): The estimated cumulative dose is 1590.12 mGy.cm. FINDINGS: Communications Editor topogram: Extensive surgical clips in the pelvis. Lung bases: Minimal basilar opacities, likely atelectasis. Normal heart size. Coronary artery calcification. No pericardial or pleural effusion. Liver: Normal morphology. Density consistent with hepatic steatosis. Biliary: No gross biliary ductal dilatation allowing for noncontrast technique. Normal gallbladder. Pancreas: Moderate parenchymal atrophy. Spleen: Normal noncontrast appearance. Adrenal glands: Normal noncontrast appearance. Kidneys and ureters: 6 mm calcification in the interpolar region of the left kidney may represent a renal vascular calcification or calculus. If this is a calculus, this is nonobstructing. Exophytic hypodensity arising from the lower pole the right kidney consistent with cyst by density. No hydronephrosis. Ureters normal. Mild nonspecific perinephric fat stranding. Bladder: Normal. Pelvic organs: Extensive surgical clips in the prostatectomy bed and along the pelvic sidewalls likely indicating lymph node dissection. No fluid collection in the operative bed. Mild inflammatory change, likely postsurgical and/or postradiation. Trace amount of fluid in the presacral space, also likely expected post radiation. No gross evidence of soft tissue nodularity at the ureteral anastomosis allowing for noncontrast technique. Bowel: Limited diverticulosis of the sigmoid colon. No pericolonic inflammatory change. Normal appendix. No bowel obstruction. Peritoneal cavity: No free fluid or intraperitoneal gas. Lymph nodes: No gross lymphadenopathy allowing for noncontrast technique. Vasculature: Atherosclerosis of the normal caliber abdominal aorta. Abdominal wall: Fat-containing left inguinal hernia. Musculoskeletal: Interval increase in diffuse sclerosis in the pelvis, which now prominently involves the sacrum and left hemipelvis. Additionally, numerous vertebral bodies are now involved beyond simply the L2 vertebral body. Nearly every rib contains sclerotic lesions. No gross evidence of an acute pathologic fracture. Chronic pathologic fractures of several ribs noted. IMPRESSION: 1. Significant interval progression of osseous metastatic disease. No lymphadenopathy. 2. Post surgical and post radiation changes of the prostatectomy bed. 3. No acute intra-abdominal pathology. No CT evidence of infection. 4. Limited diverticulosis of the sigmoid colon. 5. Hepatic steatosis. Electronically signed by: Doroteo Rodriges M.D. 03/14/2018 8:17 AM Dictated Date/Time: 03/14/2018 7:11 AM
[2018-03-14] MEDS: CLOPIDOGREL BISULFATE 75 MG TAB PO SCH (08:23)
--- NOTE | 2018-03-14 08:24 | Pharmacy Progress Note ---
Pharmacy Abx Initial Consult Date of Service Mar 14, 2018. Pharmacy Dosing Scope Date of Consult: 03/13/18 Consultation requested by: Dr. Mosher Pharmacy is consulted to initiate Vancomycin IV dosing therapy, order appropriate labs and adjust drug dose/frequency. Subjective The patient is a 77 year old male admitted on Mar 13, 2018 at 21:28. PMH significant for metastatic prostate cancer on week 3 of oral chemotherapy, symptomatic anemia, and presumptive sepsis d/t UTI, placed on IV Vancomycin, Azactam, Levaquin. Objective Height (Feet): 5 Height (Inches): 8.00 Weight (Kilograms): 95.800 Vital Signs (Past 12Hrs) Vital Signs Past 12 Hours Date Time Temp Pulse Resp B/P (MAP) Pulse Ox O2 Delivery O2 Flow Rate FiO2 03/14/18 07:17 36.7 65 20 108/66 97 03/14/18 06:47 36.7 63 16 120/70 96 03/14/18 06:26 36.5 62 18 108/67 96 03/14/18 04:00 Room Air 03/14/18 03:30 36.4 67 20 112/67 (82) 95 Room Air 03/14/18 00:00 Room Air 03/13/18 23:38 36.7 66 18 118/72 (87) 96 Room Air 03/13/18 22:25 37.4 70 20 124/76 (92) 95 Room Air 03/13/18 22:07 Room Air 03/13/18 21:59 37.6 80 27 120/59 95 03/13/18 20:24 37.6 80 27 120/59 95 Room Air Lab Results (24Hrs) Laboratory Tests (24 Hours) Item Value Date Time Est Creatinine Clear Calc Drug Dose 97.4 ml/min 03/14/18 0406 Creatinine 0.71 mg/dl 03/14/18 0406 Test 03/14/18 04:06 White Blood Count 5.11 K/uL (4.8-10.8) Red Blood Count 2.99 M/uL (4.7-6.1) L Hemoglobin 8.0 g/dL (14.0-18.0) L Hematocrit 25.6 % (42-52) L Mean Corpuscular Volume 85.6 fL (80-100) Mean Corpuscular Hemoglobin 26.8 pg (25-34) Mean Corpuscular Hemoglobin Concent 31.3 g/dl (32-36) L Platelet Count 348 K/uL (130-400) Mean Platelet Volume 8.5 fL (7.4-10.4) Neutrophils (%) (Auto) 81.5 % Lymphocytes (%) (Auto) 7.4 % Monocytes (%) (Auto) 7.6 % Eosinophils (%) (Auto) 0.2 % Basophils (%) (Auto) 0.2 % Neutrophils # (Auto) 4.16 K/uL (1.4-6.5) Lymphocytes # (Auto) 0.38 K/uL (1.2-3.4) L Monocytes # (Auto) 0.39 K/uL (0.11-0.59) Eosinophils # (Auto) 0.01 K/uL (0-0.5) Basophils # (Auto) 0.01 K/uL (0-0.2) Total Creatine Kinase 96 U/L (39-308) Micro Results Date/Time Source Procedure Growth Status 03/13/18 19:02 Blood Blood Culture Pending Received 03/13/18 18:56 Blood Blood Culture Pending Received Risk Factors for Resistance * Immunocompromised (oral chemotherapy) Assessment & Plan Assessment 77 year old male admitted with fever, chills, weakness, dizziness, presumptive sepsis d/t UTI. Pt on week 3 of oral chemo for prostate cancer, symptomatic anemia. Plan Vancomycin, Levaquin, Azactam for empiric treatment of sepsis, UTI Vancomycin IV * Loading dose: 2500 mg (26 mg/kg) * Maintenance dose: 1500 mg IV (15 mg/kg) every 12 hours * Goal trough level for UTI : 15 to 20 mcg/mL * Trough/Random level ordered for 03/15/18 prior to 1000 dose (this will be prior to 4th total dose) Levaquin 500mg IV Q24H Azactam 1g IV Q8H Pharmacy will continue to follow and will adjust dose/frequency as necessary. Thank you.
[2018-03-14] MEDS ORDERED: ENZALUTAMIDE 40 MG PO SCH (09:00)
[2018-03-14] MEDS ORDERED: ESCITALOPRAM OXALATE 10 MG TAB PO SCH (09:00)
[2018-03-14] MEDS ORDERED: VANCOMYCIN IV 1,000 MG in SODIUM CHLORIDE 0.9% 250ML 250 ML IV SCH (09:00)
[2018-03-14] MEDS: PANTOprazole SOD 40 MG TAB PO SCH ×2 (09:17→20:26)
[2018-03-14] MEDS: VANCOMYCIN IV 1,500 MG in SODIUM CHLORIDE 0.9% 500ML 500 ML IV SCH ×2 (10:15→21:51)
[2018-03-14] MEDS ORDERED: GLUCAGON FOR INJ 1 MG VIAL SQ PRN (12:15)
[2018-03-14] MEDS ORDERED: GLUCOSE 40% GEL 15 GM TUBE PO PRN (12:15)
[2018-03-14] MEDS ORDERED: GLUCOSE 10 TABS/TUBE PO PRN (12:15)
[2018-03-14] MEDS ORDERED: DEXTROSE 50% 50 ML SYR IV PRN (12:15)
[2018-03-14] MEDS ORDERED: INSULIN ASPART 100 UNITS/ML 3 ML PEN SC ONE (12:45)
[2018-03-14] MEDS: INSULIN ASPART 100 UNITS/ML 3 ML PEN SC SCH ×3 (12:51→20:34)
[2018-03-14 14:11] LABS: CKMB 1.1 ng/ml (0.5-3.6)
[2018-03-14] MEDS: ESCITALOPRAM OXALATE 10 MG TAB PO SCH (15:34)
[2018-03-14] MEDS: ENZALUTAMIDE 40 MG PO SCH (15:46)
--- NOTE | 2018-03-14 16:37 | ECHOCARDIOGRAM REPORT ---
*NOTICE TO RECEIVING LIBERTARIAN AGENCY This information is strictly Confidential and protected under [place] law. [place] law prohibits you from making any further disclosure of this information unless further disclosure is expressly permitted by the written consent of the person to whom it pertains or is authorized by law. A general authorization for the release of medical or other information is not sufficient for this purpose. Hospital accepts no responsibility if the information is made available to any other person, INCLUDING THE PATIENT. Interpretation Summary * Name: JOSE GUERRA Study Date: 03/14/2018 07:10 AM BP: 112/67 mmHg * Patient Location: C.2T\S\S232\S\1 HR: 46 * : 1940 (M/d/yyy) Gender: Male Height: 68 in * Age: 77 yrs Ethnicity: CA Weight: 218 lb * Ordering Physician: Juan Turner * Referring Physician: Self, Referred * Performed By: Patricia Kee RCS * * Reason For Study: SUBENDOCARDIAL CO / ELEVATED TROPONIN * BSA: 2.1 m2 * The study was technically adequate. * -- Conclusions -- * There is mild hypokinesis of the anteroseptal and anterior nuñez at the mid and apical levels. * There is suble mild hypokinesis of the anterolateral wall. * The LV Ejection Fraction = 50-55%. * The aortic valve is mildly calcified. * Borderline mild aortic valve stenosis is present. * There is trace mitral regurgitation. * Compared to the prior study dated 08/26/2016, the anteroseptal and anterior wall motion abnormalities are unchanged. Subtle anterolateral hypokinesis is now present. Procedure Details * A complete two-dimensional transthoracic echocardiogram was performed (2D, M-mode, Doppler and color flow Doppler). * The study was technically difficult. * A contrast injection of Definity was performed to improve assessment of LV function. * Contrast was injected into an intravenous site in the right arm. * One vial of Definity ultrasound contrast was diluted in normal saline to a total volume of 10 ml. A total of '2' ml of solution was administered during imaging. * Lot # [id number] of Definity utilized for procedure. * Expiration date MAR 13. Left Ventricle * The left ventricle is normal in size. * There is normal left ventricular wall thickness. * Left ventricular systolic function is normal. * Ejection Fraction = 50-55%. * There is mild hypokinesis of the anteroseptal and anterior nuñez at the mid and apical levels. There is suble mild hypokinesis of the anterolateral wall. Right Ventricle * The right ventricle is normal size. * The right ventricular systolic function is normal as assessed by tricuspid annular plane systolic excursion (TAPSE) (normal >1.5 cm). Atria * The left atrial size is normal. * Right atrial size is normal. * There is no evidence of atrial septal defect, but resolution does not allow assessment for a patent foramen ovale. Mitral Valve * The mitral valve is normal. * There is no mitral valve stenosis. * There is trace mitral regurgitation. Tricuspid Valve * The tricuspid valve is normal. * There is no tricuspid stenosis. * Significant tricuspid regurgitation is absent. * Doppler findings do not suggest pulmonary hypertension. Aortic Valve * The aortic valve is trileaflet. * The aortic valve is mildly calcified. * Borderline mild aortic valve stenosis is present. * Mild aortic regurgitation. Pulmonic Valve * The pulmonary valve is not well seen, but the Doppler examination is normal without significant regurgitation or stenosis. Great Vessels * The aortic root and proximal ascending aorta are normal sized. Pericardium/Pleural * There is no pericardial effusion. Great Vessels * Normal inferior vena cava diameter and respiratory variation suggests normal central venous pressure. Left Ventricular Diastolic Function * Grade I diastolic dysfunction, (abnormal relaxation pattern). MMode 2D Measurements and Calculations IVSd 1.5 cm IVSs 2.0 cm LVIDd 5.2 cm LVIDs 3.2 cm LVPWd 1.5 cm LVPWs 2.0 cm IVS/LVPW 0.96 FS 37.3 % EDV(Teich) 127.6 ml ESV(Teich) 42.2 ml EF(Teich) 66.9 % EDV(cubed) 137.9 ml ESV(cubed) 34.0 ml EF(cubed) 75.3 % % IVS thick 36.3 % % LVPW thick 27.5 % LV mass(C)d 342.5 grams LV mass(C)dI 161.5 grams/m\S\2 LV mass(C)s 285.7 grams LV mass(C)sI 134.7 grams/m\S\2 SV(Teich) 85.4 ml SI(Teich) 40.3 ml/m\S\2 SV(cubed) 103.9 ml SI(cubed) 49.0 ml/m\S\2 Ao root diam 4.1 cm Ao root area 13.2 cm\S\2 LA dimension 4.6 cm LA/Ao 1.1 LVOT diam 2.1 cm LVOT area 3.5 cm\S\2 LVAd ap4 38.8 cm\S\2 LVLd ap4 8.6 cm EDV(MOD-sp4) 138.5 ml EDV(sp4-el) 148.1 ml LVAs ap4 27.6 cm\S\2 LVLs ap4 7.9 cm ESV(MOD-sp4) 80.2 ml ESV(sp4-el) 82.4 ml EF(MOD-sp4) 42.1 % EF(sp4-el) 44.4 % LVAd ap2 37.1 cm\S\2 LVLd ap2 8.7 cm EDV(MOD-sp2) 131.3 ml EDV(sp2-el) 134.7 ml LVAs ap2 26.6 cm\S\2 LVLs ap2 7.7 cm ESV(MOD-sp2) 75.2 ml ESV(sp2-el) 78.2 ml EF(MOD-sp2) 42.7 % EF(sp2-el) 42.0 % LVLd %diff 0.18 % EDV(MOD-bp) 135.5 ml LVLs %diff -2.18 % ESV(MOD-bp) 78.4 ml EF(MOD-bp) 42.1 % SV(MOD-sp4) 58.3 ml SI(MOD-sp4) 27.5 ml/m\S\2 SV(MOD-sp2) 56.1 ml SI(MOD-sp2) 26.5 ml/m\S\2 SV(MOD-bp) 57.0 ml SI(MOD-bp) 26.9 ml/m\S\2 SV(sp4-el) 65.7 ml SI(sp4-el) 31.0 ml/m\S\2 SV(sp2-el) 56.5 ml SI(sp2-el) 26.7 ml/m\S\2 Doppler Measurements and Calculations MV E max mora 59.3 cm/sec MV A max mora 65.8 cm/sec MV E/A 0.90 MV P1/2t max mora 63.8 cm/sec MV P1/2t 101.8 msec MVA(P1/2t) 2.2 cm\S\2 MV dec slope 183.7 cm/sec\S\2 MV dec time 0.30 sec Ao V2 max 232.9 cm/sec Ao max PG 21.7 mmHg Ao max PG (full) 18.4 mmHg FRANKY(V,A) 1.4 cm\S\2 FRANKY(V,D) 1.4 cm\S\2 AI max mora 308.4 cm/sec AI max PG 38.1 mmHg AI dec slope 118.6 cm/sec\S\2 AI P1/2t 761.8 msec LV V1 max PG 3.3 mmHg LV V1 max 91.5 cm/sec PA V2 max 107.1 cm/sec PA max PG 4.6 mmHg PI max mora 146.5 cm/sec PI max PG 8.7 mmHg PI dec slope 114.6 cm/sec\S\2 PI P1/2t 374.2 msec TR max mora 222.8 cm/sec
--- NOTE | 2018-03-14 16:47 | Cardiology Consultation ---
Cardiology Consultation Date of Consultation: Mar 14, 2018 History of Present Illness Patient is a 77 year old male seen in cardiology consultation per the request of Dr Turner for the evaluation of non-ST segment elevation myocardial infarction. The patient has a history of coronary heart disease with prior anterior ST segment elevation myocardial infarction and LAD stent. He has been on anticoagulation with Eliquis given past history of paroxysmal atrial fibrillation without any recent breakthrough events. He is a long-standing history of prostate carcinoma which is been progressive with development of metastatic bone disease. He has been undergoing chemotherapy for his prostate carcinoma for the last 3 weeks 2 days prior to hospitalization he had noticed significant on and off again fever Saturday evening and and had a lot of difficulty sleeping. His fever came back with a maximum temperature at home on , over 103F. He presented to the emergency department with maximum temperature while there last evening between 8 and 10 PM of 37.6C. He was found to have a mildly elevated troponin of 0.151 and 0.065ng/ml . On my discussion with him he describes generalized weakness and recent fever without any chest discomfort. He received a unit of packed red blood cells shortly after admission and was receiving his second unit of packed red blood cells during my initial assessment of him this morning on the telemetry floor having had an admission hemoglobin of 8.2. Past Medical/Surgical History Problem List: Medical Problems: (1) Anemia (2) Anticoagulated on Coumadin (3) Chest pain radiating to arm (4) Coronary artery disease with history of myocardial infarction without history of CABG (5) Diabetes (6) GERD (gastroesophageal reflux disease) (7) Hyperlipidemia (8) Hypertension (9) Hypophosphatemia (10) Hypothyroidism (11) NSTEMI, initial episode of care (12) Osteoarthritis (13) Paroxysmal atrial fibrillation (14) Prostate cancer (15) Sepsis Surgical Problems: (1) S/P prostatectomy (2) Stented coronary artery History Cardiac History:February 24, 2010 acute anterior wall NE complicated by ventricular fibrillation arrest shortly after presenting to [facility] via personal vehicle - s/p successful defibrillation, atherothrombectomy, and PCI of the mid LAD with a bare metal stent. Troponin I peaked at 17.3. EF 40% by LV gram with mid, anterior, anteroapical, and inferoapical akinesis. Due to the apical hypokinesis as well as preceding history of paroxysmal atrial fibrillation and hypercoagulable state he was discharged on Coumadin anticoagulation for stroke prevention. He has now been transitioned to Eliquis. He is not on ASA secondary to an allergy including hives/wheezing. Social history: No history of alcohol. Tobacco abuse. . Lives with . Family History: Non contributory Review Of Systems A 10 point review of systems is reviewed and is negative with exception of that above Allergies Coded Allergies: Penicillins (Verified Allergy, Mild, HIVE'S, 11/27/17) [place] (Verified Allergy, Mild, HIVES, 11/27/17) Aspirin (Verified Allergy, Unknown, HIVES, 11/27/17) [place] Flour (Verified Allergy, Unknown, HIVES, 03/14/18) [place]hen[place] (Verified Allergy, Unknown, HIVES, 11/27/17) Tomato (Verified Allergy, Unknown, HIVES, 11/27/17) Egg (Verified Adverse Reaction, Unknown, Diarrhea, 11/28/17) Eggs or Egg-derived Products (Unverified Adverse Reaction, Unknown, GI SYMPTOMS, 03/14/18) Food allergy to eggs, also entered this allergy as a drug allergy Medications Reported Home Medications Medications Dose Route/Sig Max Daily Dose Days Date Category Dose Instructions Benadryl Allergy (Diphenhydramine Hcl) 25 Mg Tab 25 Mg PO UD PRN 03/13/18 Reported TAKE PER PACKAGE DIRECTIONS Xtandi (Enzalutamide) 40 Mg Cap 160 Mg PO QD@1600 03/13/18 Reported Vitamin B12 (Cyanocobalamin) Unknown Strength Mario 2 Drops UT QPM 03/13/18 Reported TAKE THIS MEDICATION WITH EVENING MEAL Metoprolol Succinate ER (Metoprolol Succinate) 25 Mg Tabcr 12.5 Mg PO DAILY 03/13/18 Reported Lisinopril 10 Mg Tab 5 Mg PO DAILY 03/13/18 Reported Clopidogrel (Clopidogrel Bisulfate) 75 Mg Tab 75 Mg PO DAILY 03/13/18 Reported Ranitidine HCl 150 Mg Tab 150 Mg PO BID 03/13/18 Reported Eliquis (Apixaban) 5 Mg Tab 5 Mg PO BID 03/13/18 Reported Escitalopram Oxalate 10 Mg Tab 10 Mg PO DAILY 03/13/18 Reported Prednisone 5 Mg Tab 5 Mg PO UD 03/13/18 Reported TAPER OFF MD DIRECTS Tramadol HCl 50 Mg Tab 50 Mg PO Q6-8HRS PRN 03/13/18 Reported Phospha 250 Neutral (Pot Phosphate Monobasic W/ Sod) 1 Tab Tab 1 Tab PO BID 11/27/17 Reported Levothyroxine Sodium 100 Mcg Tab 100 Mcg PO DAILY 06/17/17 Reported Humalog Kwikpen (Insulin Lispro (Human)) 100 Unit/Ml Inj 1 Dose SC BIDM 03/12/17 Reported COVERAGE DIRECTED BY SLIDING SCALE Toujeo Solostar (Insulin Glargine) 300 Unit/Ml Inj 35 Units SC HS 10/23/16 Reported Lipitor (Atorvastatin Calcium) 80 Mg Tab 80 Mg PO HS 05/03/10 Reported Mag-Ox (Magnesium Oxide) 400 Mg Tab 400 Mg PO BID 05/03/10 Reported Physical Exam Vital Signs (Last 8hrs): Last 8 Hrs Date Time Temp Pulse Resp B/P (MAP) Pulse Ox O2 Delivery O2 Flow Rate FiO2 03/14/18 15:40 36.5 66 18 98 03/14/18 15:01 36.5 66 18 153/72 (99) 98 Room Air 03/14/18 13:00 36.2 60 18 123/63 (83) 97 Room Air 03/14/18 13:00 36.2 60 18 123/63 97 03/14/18 12:00 97 Room Air 03/14/18 11:45 36.5 85 22 136/71 96 03/14/18 09:45 36.4 70 20 111/68 93 03/14/18 09:30 36.3 68 20 113/70 96 General Appearance: Alert and Oriented x3. NAD. Head: Normocephalic Atraumatic. Eyes: PERRLA, EOMI, conjunctiva and sclera clear Neck: Supple. No carotid bruits noted. No JVD. No HJD. Respiratory: Breath sounds clear to auscultation bilaterally. No w/r/r. Cardiovascular: Reg rate and rhythm. S1 and S2 noted. No murmurs, rubs, gallops. PMI non displace. Abdomen: Normal bowel sounds, soft nontender. no abdominal bruits. Extremities: No edema, no clubbing or cyanosis. distal pulses 2/4 bilaterally. Neuro: No focal deficits. Psychiatric: Normal affect. Data Last Resulted 03/14/18 04:06 Red Blood Count 2.99, Mean Corpuscular Volume 85.6, Mean Corpuscular Hemoglobin 26.8, Mean Corpuscular Hemoglobin Concent 31.3, Mean Platelet Volume 8.5, Neutrophils (%) (Auto) 81.5, Lymphocytes (%) (Auto) 7.4, Monocytes (%) (Auto) 7.6, Eosinophils (%) (Auto) 0.2, Basophils (%) (Auto) 0.2, Neutrophils # (Auto) 4.16, Lymphocytes # (Auto) 0.38, Monocytes # (Auto) 0.39, Eosinophils # (Auto) 0.01, Basophils # (Auto) 0.01 Last Resulted 03/14/18 04:06 Past 24 Hours Test 03/13/18 18:56 03/14/18 04:06 03/14/18 13:18 Range/Units Creatine Kinase MB 0.6 1.0 1.1 0.5-3.6 ng/ml Creatine Kinase MB Ratio 0.7 1.0 1.2 0-3.0 Prothromb Time International Ratio 1.1 1.1 0.9-1.1 Prothrombin Time 11.3 11.4 9.0-12.0 SECONDS Total Creatine Kinase 92 96 90 39-308 U/L Troponin I 0.151 *H 0.065 *H 0.030 0-0.045 ng/ml The patient's initial EKG revealed sinus rhythm without any significant ST changes. Repeat EKG performed this morning 03/14/2018 at 703 is some degree of baseline artifact and is concerning for ST segment elevation in lead II and aVF, as well as subtle J-point elevation in leads I and V6. Repeat EKG performed at resolution of the previous inferior and lateral ST segment elevation. T waves are noted in the inferior leads as well as poor R-wave progression in the anterior precordial leads suggestive of age- indeterminate anterior and inferior infarction pattern which is relatively unchanged compared to his prior baseline. Assessment & Plan Transthoracic echocardiogram performed today and reviewed independently by the undersigned: The anteroseptal and anterior nuñez are mildly hypokinetic at the mid and apical levels. There is a subtle area of hypokinesis encompassing the anterolateral myocardial wall the apical mid segment. The left ventricular ejection fraction is at the lower limit of normal at 50-55%. Borderline mild aortic valve stenosis is present. Mild aortic valve regurgitation is present. Trace mitral regurgitation is present. Impression: 77-year-old male 1. Mild troponin elevation likely due to supply demand mismatch in the setting of fixed chronic coronary heart disease 2. Fever, with the start of recent chemotherapy, likely underlying sepsis syndrome, sources include genitourinary tract versus pneumonia 3. Anemia 4. Prior anterior myocardial infarction with bare-metal stent to the LAD at that time in 2009 5. Remote history of atrial fibrillation at the time of his myocardial infarction in 2009 without any prolonged clinical relapses noted. Plan: Based on the patient's EKG this morning I had been concerned because of the noted ST segment elevation. The patient was assessed clinically however and no symptoms suggestive of angina. I discussed things with the patient, his spouse , and his nurse, and apparently the patient felt significantly improved after the initiation of antibiotics and his first unit of packed red blood cells overnight. He described no mary symptoms suggestive of angina. I think perhaps the EKG from this morning was in part due to artifact and I do not think he had true transient ST elevation and that this was rather due to a poor EKG tracing she had no mary anginal symptoms around that time or several hours later when I had assessed him. Agree with transfusion of 2 units packed red blood cells for hemoglobin of 10 g/ dL given his myocardial necrosis as documented with elevated troponin levels. Agree with holding Eliquis for now until hemoglobin is trended. He is in sinus rhythm. I think his stroke risk is low. He is not on aspirin due to long-standing allergy to aspirin. Continue chronic clopidogrel dose. Agree with empiric antibiotics.
--- NOTE | 2018-03-14 17:01 | Progress Note ---
Subjective Date of Service: Mar 14, 2018. Subjective Pt evaluation today including: conversation w/ patient, physical exam, chart review, lab review, review of inpatient medication list feeling very good breathing fine doesn't feel sick anymore no complaints Problem List Medical Problems: (1) Abrasion of left arm Status: Acute (2) Anemia Status: Chronic (3) Back pain Status: Acute (4) Bronchitis Status: Acute (5) Bursitis of left hip Status: Acute (6) Dehydration Status: Acute (7) Elevated troponin Status: Acute (8) Epigastric abdominal pain Status: Acute (9) Fever Status: Acute (10) Headache Status: Acute (11) Infection of skin Status: Acute (12) Left lower lobe pneumonia Status: Acute (13) Poorly controlled diabetes mellitus Status: Acute (14) Right knee pain Status: Acute (15) Skin tear of right upper extremity Status: Acute (16) Substernal chest pain Status: Acute (17) Syncope Status: Acute (18) Viral syndrome Status: Acute Surgical Problems: (1) S/P prostatectomy Status: Chronic (2) Total knee replacement status Status: Acute Review of Systems all other ROS otherwise negative except for as above Objective Vital Signs Date Time Temp Pulse Resp B/P (MAP) Pulse Ox O2 Delivery O2 Flow Rate FiO2 03/14/18 15:40 36.5 66 18 98 03/14/18 15:01 36.5 66 18 153/72 (99) 98 Room Air 03/14/18 13:00 36.2 60 18 123/63 (83) 97 Room Air 03/14/18 13:00 36.2 60 18 123/63 97 03/14/18 12:00 97 Room Air 03/14/18 11:45 36.5 85 22 136/71 96 03/14/18 09:45 36.4 70 20 111/68 93 03/14/18 09:30 36.3 68 20 113/70 96 03/14/18 08:17 36.6 68 20 110/59 95 03/14/18 08:00 36.6 68 20 108/66 (80) 97 Room Air 03/14/18 08:00 97 Room Air 03/14/18 07:17 36.7 65 20 108/66 97 03/14/18 06:47 36.7 63 16 120/70 96 03/14/18 06:26 36.5 62 18 108/67 96 4/20/18 04:00 Room Air 03/14/18 03:30 36.4 67 20 112/67 (82) 95 Room Air 03/14/18 00:00 Room Air 03/13/18 23:38 36.7 66 18 118/72 (87) 96 Room Air 03/13/18 22:25 37.4 70 20 124/76 (92) 95 Room Air 03/13/18 22:07 Room Air 03/13/18 21:59 37.6 80 27 120/59 95 03/13/18 20:24 37.6 80 27 120/59 95 Room Air 03/13/18 19:05 69 03/13/18 17:57 36.9 77 22 163/57 96 Room Air Physical Exam General Appearance: no apparent distress Eyes: EOMI ENT: hearing grossly normal Neck: trachea midline Respiratory/Chest: no respiratory distress, no accessory muscle use Extremities: normal range of motion Neurologic/Psychiatric: cytopathologist II-XII nml as tested, alert, normal mood/affect Skin: normal color, warm/dry Laboratory Results Last 24 Hours Test 03/13/18 18:31 03/13/18 18:56 03/13/18 18:59 03/13/18 19:03 Bedside Glucose 197 mg/dl White Blood Count 5.73 K/uL Red Blood Count 3.09 M/uL Hemoglobin 8.2 g/dL Hematocrit 26.3 % Mean Corpuscular Volume 85.1 fL Mean Corpuscular Hemoglobin 26.5 pg Mean Corpuscular Hemoglobin Concent 31.2 g/dl Platelet Count 374 K/uL Mean Platelet Volume 8.3 fL Neutrophils (%) (Auto) 75.9 % Lymphocytes (%) (Auto) 8.6 % Monocytes (%) (Auto) 12.4 % Eosinophils (%) (Auto) 0.5 % Basophils (%) (Auto) 0.2 % Neutrophils # (Auto) 4.35 K/uL Lymphocytes # (Auto) 0.49 K/uL Monocytes # (Auto) 0.71 K/uL Eosinophils # (Auto) 0.03 K/uL Basophils # (Auto) 0.01 K/uL RDW Standard Deviation 56.5 fL RDW Coefficient of Variation 18.0 % Immature Granulocyte % (Auto) 2.4 % Immature Granulocyte # (Auto) 0.14 K/uL Prothrombin Time 11.3 SECONDS Prothromb Time International Ratio 1.1 Sodium Level 133 mmol/L Potassium Level 4.0 mmol/L Chloride Level 103 mmol/L Carbon Dioxide Level 20 mmol/L Anion Gap 10.0 mmol/L 17.0 mmol/L Blood Urea Nitrogen 11 mg/dl Creatinine 0.76 mg/dl Est Creatinine Clear Calc Drug Dose 92.9 ml/min Estimated GFR () 102.0 Estimated GFR (Non- 88.0 BUN/Creatinine Ratio 14.2 Random Glucose 176 mg/dl Calcium Level 7.4 mg/dl Magnesium Level 1.9 mg/dl Total Bilirubin 0.8 mg/dl Direct Bilirubin 0.2 mg/dl Aspartate Amino Transf (AST/SGOT) 52 U/L Alanine Aminotransferase (ALT/SGPT) 13 U/L Alkaline Phosphatase 872 U/L Total Creatine Kinase 92 U/L Creatine Kinase MB 0.6 ng/ml Creatine Kinase MB Ratio 0.7 Troponin I 0.151 ng/ml Total Protein 6.1 gm/dl Albumin 2.3 gm/dl Bedside Lactic Acid Venous 1.50 mmol/L Bedside Hemoglobin 8.5 g/dl Bedside Hematocrit 25 % Bedside Sodium 133 mEq/L Bedside Potassium 4.0 mEq/L Bedside Chloride 100 mEq/L Bedside Total CO2 20 mEq/l Bedside Blood Urea Nitrogen 10 mg/dl Bedside Creatinine 0.6 mg/dl Bedside Glucose (other) 184 mg/dl Bedside Ionized Calcium (Donna) 0.99 mmol/l Test 03/14/18 00:28 03/14/18 04:06 03/14/18 04:35 03/14/18 07:01 Bedside Glucose 216 mg/dl 260 mg/dl White Blood Count 5.11 K/uL Red Blood Count 2.99 M/uL Hemoglobin 8.0 g/dL Hematocrit 25.6 % Mean Corpuscular Volume 85.6 fL Mean Corpuscular Hemoglobin 26.8 pg Mean Corpuscular Hemoglobin Concent 31.3 g/dl Platelet Count 348 K/uL Mean Platelet Volume 8.5 fL Neutrophils (%) (Auto) 81.5 % Lymphocytes (%) (Auto) 7.4 % Monocytes (%) (Auto) 7.6 % Eosinophils (%) (Auto) 0.2 % Basophils (%) (Auto) 0.2 % Neutrophils # (Auto) 4.16 K/uL Lymphocytes # (Auto) 0.38 K/uL Monocytes # (Auto) 0.39 K/uL Eosinophils # (Auto) 0.01 K/uL Basophils # (Auto) 0.01 K/uL RDW Standard Deviation 56.0 fL RDW Coefficient of Variation 17.7 % Immature Granulocyte % (Auto) 3.1 % Immature Granulocyte # (Auto) 0.16 K/uL Poikilocytosis PRESENT Prothrombin Time 11.4 SECONDS Prothromb Time International Ratio 1.1 Activated Partial Thromboplast Time 37.1 SECONDS Partial Thromboplastin Ratio 1.4 Sodium Level 131 mmol/L Potassium Level 4.6 mmol/L Chloride Level 104 mmol/L Carbon Dioxide Level 21 mmol/L Anion Gap 6.0 mmol/L Blood Urea Nitrogen 13 mg/dl Creatinine 0.71 mg/dl Est Creatinine Clear Calc Drug Dose 97.4 ml/min Estimated GFR () 104.9 Estimated GFR (Non- 90.5 BUN/Creatinine Ratio 18.2 Random Glucose 260 mg/dl Calcium Level 7.3 mg/dl Magnesium Level 2.1 mg/dl Total Creatine Kinase 96 U/L Creatine Kinase MB 1.0 ng/ml Creatine Kinase MB Ratio 1.0 Troponin I 0.065 ng/ml Urine Color YELLOW Urine Appearance CLEAR Urine pH 6.5 Urine Specific [place] 1.025 Urine Protein 1+ Urine Glucose (UA) 2+ Urine Ketones 1+ Urine Occult Blood NEG Urine Nitrite NEG Urine Bilirubin NEG Urine Urobilinogen NEG Urine Leukocyte Esterase NEG Urine WBC (Auto) 1-5 /hpf Urine RBC (Auto) 0-4 /hpf Urine Hyaline Casts (Auto) 1-5 /lpf Urine Epithelial Cells (Auto) 10-20 /lpf Urine Bacteria (Auto) NEG Test 03/14/18 11:07 03/14/18 13:18 Bedside Glucose 366 mg/dl Total Creatine Kinase 90 U/L Creatine Kinase MB 1.1 ng/ml Creatine Kinase MB Ratio 1.2 Troponin I 0.030 ng/ml Assessment and Plan febrile illness -nonspecific but resolved -ongoing serial exams, observation and supportive care -stable for med surg, if ongoing stability then likely home tomorrow elevated troponin -fortunately w hindsight was demand ischemia from illness anemia -worse than baseline + elevated troponin --> was transfused due to elevated troponin -no hemorrhage - continue to follow (even as outpt) ?chemo related vs slow ooze - but safe to resume anticoagulation Prostate cancer/on week 3 of oral chemotherapy -possibly chemo related causing febrile illness but stable now -continue outpt follow up Diabetes mellitus-- -insulin management -A1c elevated @ ~11 last check. current high sugars likely part poor baseline control and part steroid effect - but can stop stress dose steroids chronic steroid use -initially on stress dose steroids, doing well, can regress to prednisone daily and follow Hypothyroidism-- levothyroxine 100 mcg p.o. daily. Hyperlipidemia-- Continue atorvastatin 80 mg p.o. HS GERD-- Continue ranitidine 150 mg p.o. twice daily. Depression-- Continue Lexapro 10 mg p.o. daily. DVT proph -resume apixaban
[2018-03-14] MEDS: APIXABAN 2.5 MG TAB PO SCH (20:26)
[2018-03-14] MEDS: INSULIN GLARGINE SOLOSTAR 100 UNITS/ML 3 ML PEN SC SCH (20:34)
[2018-03-14] MEDS ORDERED: ATORVASTATIN 40 MG TAB PO SCH (21:00)
[2018-03-15 04:25] VITALS: BP 116/68; PULSE 62; TEMP 36.4; O2SAT 98
[2018-03-15] MEDS: LEVOTHYROXINE 100 MCG TAB PO SCH (06:09)
[2018-03-15 06:40] LABS: EOS % 0.4 %; EOS ABS # 0.02 K/uL (0-0.5); HEMATOCRIT 28.3 % (42-52); HEMOGLOBIN 9.2 g/dL (14.0-18.0); IG# 0.08 K/uL (0.00-0.02); LYMPH % 8.2 %; LYMPH ABS # 0.39 K/uL (1.2-3.4); MEAN CELL VOLUME 84.2 fL (80-100); MEAN CORPUSCULAR HEMOGLOBIN 27.4 pg (25-34); MEAN CORPUSCULAR HGB CONC 32.5 g/dl (32-36); MEAN PLATELET VOLUME 8.6 fL (7.4-10.4); MONO % 9.9 %; MONO ABS # 0.47 K/uL (0.11-0.59); NEUT % 79.8 %; NEUT ABS # 3.79 K/uL (1.4-6.5); PLATELET COUNT 298 K/uL (130-400); RED CELL DISTRIBUTION WIDTH CV 17.1 % (11.5-14.5); RED CELL DISTRIBUTION WIDTH SD 52.6 fL (36.4-46.3); WHITE BLOOD COUNT 4.75 K/uL (4.8-10.8)
[2018-03-15 06:57] LABS: PTT PATIENT 31.4 SECONDS (21.0-31.0)
[2018-03-15 07:28] VITALS: BP 148/70; PULSE 62; TEMP 36.7; O2SAT 98
[2018-03-15 07:33] LABS: CALCIUM 7.4 mg/dl (8.5-10.1); CREATININE 0.71 mg/dl (0.60-1.40); POTASSIUM 3.6 mmol/L (3.5-5.1)
[2018-03-15 08:00] VITALS: O2SAT 98
[2018-03-15] MEDS: CLOPIDOGREL BISULFATE 75 MG TAB PO SCH (08:10)
[2018-03-15] MEDS: APIXABAN 2.5 MG TAB PO SCH (08:10)
[2018-03-15] MEDS: PANTOprazole SOD 40 MG TAB PO SCH (08:10)
[2018-03-15] MEDS: INSULIN ASPART 100 UNITS/ML 3 ML PEN SC SCH ×3 (08:45→17:54)
[2018-03-15] MEDS: INSULIN GLARGINE SOLOSTAR 100 UNITS/ML 3 ML PEN SC SCH (08:46)
[2018-03-15] MEDS ORDERED: VANCOMYCIN TROUGH ONE (09:30)
[2018-03-15] MEDS: VANCOMYCIN IV 1,500 MG in SODIUM CHLORIDE 0.9% 500ML 500 ML IV SCH (09:58)
[2018-03-15 12:00] VITALS: BP 125/70; PULSE 68; TEMP 36.4; O2SAT 97
[2018-03-15 14:39] VITALS: BP 148/71; PULSE 66; TEMP 36.7; O2SAT 96
[2018-03-15] MEDS: ESCITALOPRAM OXALATE 10 MG TAB PO SCH (15:47)
[2018-03-15] MEDS: ENZALUTAMIDE 40 MG PO SCH (15:49)
--- NOTE | 2018-03-15 16:25 | Discharge Instructions ---
Discharge Instructions Date of Service Mar 15, 2018. Admission Reason for Admission: Nstemi, Initial Episode Of Care, Sepsis Discharge Discharge Diagnosis / Problem: Fever, anemia Discharge Goals Goal(s): Improve disease control, Learn about illness Activity Recommendations Activity Limitations: per Instructions/Follow-up section . Instructions / Follow-Up Instructions / Follow-Up You were admitted to the hospital for evaluation of your fever. Multiple laboratory and imaging tests did not suggest a particular cause of this, which is all very reassuring. You were also noted to have low blood counts (anemia) for which you were transfused two units of blood. Please continue to follow-up with both your primary care and oncology providers for ongoing evaluation. No acute changes to your medications were made during this admission. As we discussed in person, the CT scan of your chest did show scattered pulmonary nodules, the largest of which was about 5 mm. The exact nature or source of these nodules is unclear. Please follow-up with your primary care and oncologist for ongoing evaluation of the same. Please return to the emergency department if you have another fever while on chemotherapy, if you notice any concerns about bleeding, feeling particularly weak, any acute chest pain or shortness of breath, or with any other emergent concerns. Current Hospital Diet Patient's current hospital diet: AHA Diet (Heart Healthy), Diabetes Type 2 Diet Discharge Diet Recommended Diet: AHA Diet (Heart Healthy), Diabetes Type 2 Diet Pending Studies Studies pending at discharge: no Laboratory Results Hemoglobin A1c Test 02/04/18 15:47 Range/Units Estimated Average Glucose 269 mg/dl Hemoglobin A1c 11.0 H 4.5-5.6 % Medical Emergencies . Who to Call and When: Medical Emergencies: If at any time you feel your situation is an emergency, please call 911 immediately. . Non-Emergent Contact Non-Emergency issues call your: Primary Care Provider .
--- NOTE | 2018-03-15 16:45 | Discharge Summary ---
Discharge Summary Date of Service Mar 15, 2018. Discharge Summary Admission Date: Mar 13, 2018 at 21:28 Discharge Date: Mar 15, 2018 Discharge Disposition: Home Principal Diagnosis: Febrile illness Problems/Secondary Diagnoses: Elevated troponin Anemia Immunizations: Have You Had Influenza Vaccine: No History of Tetanus Vaccine?: YEARS AGO History of Pneumococcal: No History of Hepatitis B Vaccine: No Procedures: 13Mar2018 - CHEST ONE VIEW PORTABLE IMPRESSION: 1. No focal infiltrate to suggest pneumonia. 2. Cardiomegaly. 13Mar2018 - CT THORAX WITHOUT contrast IMPRESSION: 1. Extensive osteoblastic metastatic disease. 2. No focal lung consolidations to suggest pneumonia. 3. Trace right pleural effusion. 4. A few scattered subcentimeter pulmonary nodules with the largest in the right lung apex measuring 5 mm. A few of these are new compared to the prior study but remain indeterminate. Please refer the chart below for recommended follow-up. 13Mar2018 - CT ABD/PELVIS NO IV OR ORAL CONT IMPRESSION: 1. Significant interval progression of osseous metastatic disease. No lymphadenopathy. 2. Post surgical and post radiation changes of the prostatectomy bed. 3. No acute intra-abdominal pathology. No CT evidence of infection. 4. Limited diverticulosis of the sigmoid colon. 5. Hepatic steatosis. 14Mar2018 Transthoracic echocardiogram * -- Conclusions -- * There is mild hypokinesis of the anteroseptal and anterior nuñez at the mid and apical levels. * There is subtle mild hypokinesis of the anterolateral wall. * The LV Ejection Fraction = 50-55%. * The aortic valve is mildly calcified. * Borderline mild aortic valve stenosis is present. * There is trace mitral regurgitation. * Compared to the prior study dated 08/26/2016, the anteroseptal and anterior wall motion abnormalities are unchanged. Subtle anterolateral hypokinesis is now present. Consultations: Cardiology A/p on 14Mar2018 Assessment & Plan Transthoracic echocardiogram performed today and reviewed independently by the undersigned: The anteroseptal and anterior nuñez are mildly hypokinetic at the mid and apical levels. There is a subtle area of hypokinesis encompassing the anterolateral myocardial wall the apical mid segment. The left ventricular ejection fraction is at the lower limit of normal at 50-55%. Borderline mild aortic valve stenosis is present. Mild aortic valve regurgitation is present. Trace mitral regurgitation is present. Impression: 77-year-old male 1. Mild troponin elevation likely due to supply demand mismatch in the setting of fixed chronic coronary heart disease 2. Fever, with the start of recent chemotherapy, likely underlying sepsis syndrome, sources include genitourinary tract versus pneumonia 3. Anemia 4. Prior anterior myocardial infarction with bare-metal stent to the LAD at that time in 2009 5. Remote history of atrial fibrillation at the time of his myocardial infarction in 2009 without any prolonged clinical relapses noted. Plan: Based on the patient's EKG this morning I had been concerned because of the noted ST segment elevation. The patient was assessed clinically however and no symptoms suggestive of angina. I discussed things with the patient, his spouse , and his nurse, and apparently the patient felt significantly improved after the initiation of antibiotics and his first unit of packed red blood cells overnight. He described no mary symptoms suggestive of angina. I think perhaps the EKG from this morning was in part due to artifact and I do not think he had true transient ST elevation and that this was rather due to a poor EKG tracing she had no mary anginal symptoms around that time or several hours later when I had assessed him. Agree with transfusion of 2 units packed red blood cells for hemoglobin of 10 g/ dL given his myocardial necrosis as documented with elevated troponin levels. Agree with holding Eliquis for now until hemoglobin is trended. He is in sinus rhythm. I think his stroke risk is low. He is not on aspirin due to long-standing allergy to aspirin. Continue chronic clopidogrel dose. Agree with empiric antibiotics. Medication Reconciliation Continued Medications: Apixaban (Eliquis) 5 Mg Tab 5 MG PO BID Atorvastatin (Lipitor) 80 Mg Tab 80 MG PO HS Clopidogrel Bisulfate (Clopidogrel) 75 Mg Tab 75 MG PO DAILY Cyanocobalamin (Vitamin B12) Unknown Strength Mario 2 DROPS UT QPM TAKE THIS MEDICATION WITH EVENING MEAL Diphenhydramine Hcl (Benadryl Allergy) 25 Mg Tab 25 MG PO UD PRN for Allergic Reaction TAKE PER PACKAGE DIRECTIONS Enzalutamide (Xtandi) 40 Mg Cap 160 MG PO QD@1600 Escitalopram Oxalate (Escitalopram Oxalate) 10 Mg Tab 10 MG PO DAILY Insulin Glargine (Toujeo Solostar) 300 Unit/Ml Inj 35 UNITS SC HS Insulin Lispro (Human) (Humalog Kwikpen) 100 Unit/Ml Inj 1 DOSE SC BIDM COVERAGE DIRECTED BY SLIDING SCALE Levothyroxine Sodium (Levothyroxine Sodium) 100 Mcg Tab 100 MCG PO DAILY Lisinopril (Lisinopril) 10 Mg Tab 5 MG PO DAILY Magnesium Oxide (Mag-Ox) 400 Mg Tab 400 MG PO BID Metoprolol Succinate (Metoprolol Succinate ER) 25 Mg Tabcr 12.5 MG PO DAILY Pot Phosphate Monobasic W/ Sod (Phospha 250 Neutral) 1 Tab Tab 1 TAB PO BID Prednisone (Prednisone) 5 Mg Tab 5 MG PO UD TAPER OFF MD DIRECTS Ranitidine HCl (Ranitidine HCl) 150 Mg Tab 150 MG PO BID Tramadol HCl (Tramadol HCl) 50 Mg Tab 50 MG PO Q6-8HRS PRN for Pain Discharge Exam General Appearance: Awake, alert & oriented, comfortable in general, NAD. CV: +S1S2 RRR, no murmur. Pulm: Clear to auscultation throughout. Abdomen: +BS, soft, non-tender, non-distended. Extremities: No pedal edema or calf tenderness. Moving all extremities naturally and easily. Walks with a walker. Neuro: No gross neuro deficits. Review of Systems: Constitutional: No fever, No chills Respiratory: No cough, No shortness of breath Cardiovascular: No chest pain, No edema Abdomen: No pain, No nausea, No vomiting, No diarrhea Hospital Course HPI at time of admit on Mar 13, 2018 at 22:08 The patient is a 77-year-old male who presents to the emergency department via EMS after developing worsening weakness, dizziness, with fevers and chills that began yesterday evening, with a maximum temperature of 103.0F as noted by his . He is on his third week of oral chemotherapy for prostate cancer with Dr. Juancarlos Ku. He also follows with Dr. Red from cardiology and Dr. Mary Valiente is his PCP. He has not had any recent travels or sick exposures. The family also reports that the patient has been very fatigued over the past year, but in particularly has been fatigued over the past week or so. The patient himself is not able to contribute significantly to the HPI due to severe fatigue and generally feeling unwell. Discharge summary on 15Mar2018 77-year-old male was admitted for concerns for NSTEMI as well as a febrile illness on chemotherapy. Febrile illness: Likely nonspecific and currently resolved. Two sets of blood cultures show no growth to date. Urinalysis was clear. Chest imaging did not show any evidence of acute infectious issue. Discontinued empiric antibiotics. Elevated troponin: TnI peaked at 0.151 and trended down to 0.029. Patient described generalized weakness but no focal chest discomfort. Due to initial concerns for cardiac issues, the patient received 2 units of PRBCs. Cardiology was consulted. Mild troponin elevation was thought to be due to supply demand mismatch in the setting of fixed chronic coronary heart disease. Please see their note for details. Anemia: Hb as low as 8.0. Was transfused 2 units of blood due to his elevated troponin as noted above. No evidence of hemorrhage or ongoing bleeding. Recommended continuing follow-up as an outpatient, with question of his anemia related to chemotherapy versus slow loss of unknown source. Will remain on his anti-coagulation for now. Prolonged QT interval: Noted QT 468 ms and QTc 512 ms on last EKG on . Pulmonary nodules: As seen on CT scan of chest. Discussed the same with patient and his . Recommended outpatient follow-up for the same. Ongoing medical issues: - Prostate cancer/on week 3 of oral chemotherapy: No acute changes as inpatient. Patient has pre-established follow-up for the same. - Diabetes mellitus: Some elevation of blood sugar here as high as 366 most likely due to steroid effect. Recommended return to home regimen with close PCP follow-up. - Chronic steroid use: Initially on stress dose steroids, doing well, can regress to prednisone daily and follow - Hypothyroidism: Levothyroxine 100 mcg p.o. daily. - Hyperlipidemia: Continue atorvastatin 80 mg p.o. HS - GERD: Continue ranitidine 150 mg p.o. twice daily. - Depression: Continue Lexapro 10 mg p.o. daily. Resident Physician Supervision Note: I interviewed and examined the patient. Discussed with Dr. torres and agree with findings and plan as documented in the note. Any exceptions or clarifications are listed here: None Documented By: Francis Deutsch feeling better walking halls well vitals noted nad breathing unlabored no pallor or icterus febrile illness - resolved. nonspecific, stable for home demand ischemia - mild anemia - improved post transfusion stable for discharge, updated pt and extensively and answered all questions to the best of my ability Total Time Spent: Greater than 30 minutes This includes examination of the patient, discharge planning, medication reconciliation, and communication with other providers. Discharge Instructions Please refer to the electronic Patient Visit Report (Discharge Instructions) for additional information. Additional Copies To Kenji Red D.O.; Mary Valiente M.D.; Juancarlos Ku M.D. Resident Tracking Resident Involvement: Resident Care Provided Care Provided: Adult Hospital Medicine (inpatient)
[2018-03-15 17:07] VITALS: BP 148/71; PULSE 66; TEMP 36.7; O2SAT 96
== END 2018-03-15 19:08 | disposition home health service (06) | DRG 812 ==
LOC: EDBD 17:49 → C.EDB 17:50 → C.2T 21:28 → UNDOADMIN 21:28 → ENRESERV 21:48 → EDBEDREQSVC 03-14 15:20 → ENRESERV 03-14 15:42 → C.2T 03-14 16:42 → C.4E 03-14 16:42
PROVIDERS: ADMIT Hospitalist; ATTEND Family Medicine
DX: D64.81 Anemia due to antineoplastic chemotherapy (principal); I24.8 Other forms of acute ischemic heart disease; C79.9 Secondary malignant neoplasm of unspecified site; R50.9 Fever, unspecified; T45.1X5A Adverse effect of antineoplastic and immunosuppressive drugs, initial encounter; D50.0 Iron deficiency anemia secondary to blood loss (chronic); I45.81 Long QT syndrome; R91.8 Other nonspecific abnormal finding of lung field; C61 Malignant neoplasm of prostate; E11.65 Type 2 diabetes mellitus with hyperglycemia; T38.0X5A Adverse effect of glucocorticoids and synthetic analogues, initial encounter; I11.9 Hypertensive heart disease without heart failure; I25.10 Atherosclerotic heart disease of native coronary artery without angina pectoris; I25.2 Old myocardial infarction; I48.0 Paroxysmal atrial fibrillation; E03.9 Hypothyroidism, unspecified; E78.5 Hyperlipidemia, unspecified; K21.9 Gastro-esophageal reflux disease without esophagitis; F32.9 Major depressive disorder, single episode, unspecified; Z51.81 Encounter for therapeutic drug level monitoring; Z79.899 Other long term (current) drug therapy; Z79.52 Long term (current) use of systemic steroids; Z79.01 Long term (current) use of anticoagulants; Z79.4 Long term (current) use of insulin; Z95.5 Presence of coronary angioplasty implant and graft; Z88.0 Allergy status to penicillin; Z88.6 Allergy status to analgesic agent; Z91.012 Allergy to eggs; Z91.018 Allergy to other foods; Z91.02 Food additives allergy status; Z82.49 Family history of ischemic heart disease and other diseases of the circulatory system; Z83.3 Family history of diabetes mellitus

== ENCOUNTER 2018-03-28 17:33 | Inpatient (IN) | payer OTHER, MEDICARE ==
[~2018-03-28] VITALS: Ht 172.7 cm; Wt 95.1 kg
[~2018-03-28 17:33] MED LIST changes: -CALC-354; -CLOP1TAB15 PO; -CYAN100020 PO; -ESCI10TA17 PO; -FERR1TAB13 PO; -LISI10TA PO; -METO25TA4 PO; -PRD5 PO; -RANI150T85 PO
--- NOTE | 2018-03-28 18:15 | EMERGENCY ROOM VISIT NOTE ---
History Report prepared by Pierre: Jp Ayala Under the Supervision of: Dr. Shikha Gallego D.O. First contact with patient: 17:59 Chief Complaint: SHORTNESS OF BREATH Stated Complaint: SHORTNESS OF BREATH, WEAK, BLOOD PRESSURE DROPPED History of Present Illness The patient is a 77 year old male who presents to the Emergency Room with complaints of constant weakness beginning two weeks ago. Per , the patient was here two weeks ago for afib and weakness. She notes that the patient was given two blood transfusions while in the hospital. She reports that the patient initially felt better for a few days after receiving his transfusion, but has since become weak again. She states that the patient also had a fever, chills, and diaphoresis when he was admitted. She notes that the patient has had worsening SOB and weakness for the last few days, but no longer has a fever and chills. The patient also complains of a change in appetite, dizziness, upper back pain between the shoulders, and an occasional productive cough. He denies any abdominal pain, chest pain, nausea, vomiting, and leg swelling. Per , the patient's blood pressure was 110 sitting today but decreased to 100 when he stood up. She reports that the patient has a history of cancer, arthritis, had a heart attack eight years ago, and had one cardiac stent placed. She states that the patient's cancer has metastasized to his bones. She notes that the patient does not have a history of lung problems, but had two spots in the same side of his lung when he was admitted two weeks ago. She notes that when the patient was admitted, his hemoglobin was six, but reports that his hemoglobin is now nine. She notes that the patient takes prednisone and Eliquis. She reports that the patient has a family history of clotting. Source of History: patient Onset: two weeks ago Position: other (global) Quality: other (weakness) Timing: constant Modifying Factors (Relieving): other (blood transfusion) Associated Symptoms: + cough (occasional productive cough), + SOB, + back pain (upper back pain between his shoulders), No fevers, No chills, No chest pain, No nausea, No vomiting, No abdominal pain Note: The patient also complains of a change in his appetite and dizziness. He denies any leg swelling. Review of Systems See HPI for pertinent positives & negatives. A total of 10 systems reviewed and were otherwise negative. Past Medical & Surgical Medical Problems: (1) Anemia (2) Anticoagulated on Coumadin (3) Arthritis (4) Cancer (5) Chest pain radiating to arm (6) Coronary artery disease with history of myocardial infarction without history of CABG (7) Diabetes (8) GERD (gastroesophageal reflux disease) (9) Hyperlipidemia (10) Hypertension (11) Hypophosphatemia (12) Hypothyroidism (13) NSTEMI, initial episode of care (14) Osteoarthritis (15) Paroxysmal atrial fibrillation (16) Prostate cancer (17) Prostate cancer metastatic to bone (18) Sepsis (19) Symptomatic anemia Surgical Problems: (1) History of heart artery stent (2) S/P prostatectomy (3) Stented coronary artery Family History Blood clots Diabetes mellitus Hypertension Social History Smoking Status: Never Smoker Alcohol Use: none Drug Use: none Marital Status: Housing Status: lives with family Occupation Status: retired Current/Historical Medications Scheduled Apixaban (Eliquis), 5 MG PO BID Atorvastatin (Lipitor), 80 MG PO HS Clopidogrel Bisulfate (Clopidogrel), 75 MG PO QAM Cyanocobalamin (Vitamin B12), 2 DROPS UT QPM Enzalutamide (Xtandi), 160 MG PO QD@1600 Escitalopram Oxalate (Escitalopram Oxalate), 10 MG PO DAILY Insulin Glargine (Toujeo Solostar), 35 UNITS SC HS Insulin Lispro (Human) (Humalog Kwikpen), 1 DOSE SC BIDM Levothyroxine Sodium (Levothyroxine Sodium), 100 MCG PO QAM Lisinopril (Lisinopril), 5 MG PO HOLD Magnesium Oxide (Mag-Ox), 400 MG PO BID Metoprolol Succinate (Metoprolol Succinate ER), 12.5 MG PO QAM Pot Phosphate Monobasic W/ Sod (Phospha 250 Neutral), 1 TAB PO BID Prednisone (Prednisone), 5 MG PO QAM Prednisone (Prednisone), 5 MG PO QPM UD Ranitidine HCl (Ranitidine HCl), 150 MG PO BID Scheduled PRN Diphenhydramine Hcl (Benadryl Allergy), 25 MG PO UD PRN for Allergic Reaction Tramadol HCl (Tramadol HCl), 50 MG PO Q6-8HRS PRN for Pain Allergies Coded Allergies: Penicillins (Verified Allergy, Mild, HIVE'S, 11/27/17) [place] (Verified Allergy, Mild, HIVES, 11/27/17) Aspirin (Verified Allergy, Unknown, HIVES, 11/27/17) [place] Flour (Verified Allergy, Unknown, HIVES, 03/14/18) [place] (Verified Allergy, Unknown, HIVES, 11/27/17) Tomato (Verified Allergy, Unknown, HIVES, 11/27/17) Egg (Verified Adverse Reaction, Unknown, Diarrhea, 11/28/17) Eggs or Egg-derived Products (Unverified Adverse Reaction, Unknown, GI SYMPTOMS, 03/14/18) Food allergy to eggs, also entered this allergy as a drug allergy Physical Exam Vital Signs Date Time Temp Pulse Resp B/P (MAP) Pulse Ox O2 Delivery O2 Flow Rate FiO2 03/28/18 22:02 71 18 116/60 95 Room Air 03/28/18 21:40 98 Room Air 03/28/18 20:39 71 17 118/62 96 Room Air 03/28/18 19:40 72 18 124/85 97 Room Air 03/28/18 18:44 72 22 131/71 95 Room Air 03/28/18 18:42 71 03/28/18 18:20 97 Room Air 03/28/18 17:43 36.3 77 18 113/69 94 Room Air Physical Exam GENERAL: alert, ill and weak appearing, well nourished, no distress, non-toxic EYE EXAM: normal conjunctiva, PERRL and EOM's grossly intact OROPHARYNX: no exudate, no erythema, lips, buccal mucosa, and tongue normal and mucous membranes are moist NECK: supple, no nuchal rigidity, no adenopathy, non-tender LUNGS: Clear to auscultation. Normal chest wall mechanics HEART: no murmurs, S1 normal and S2 normal ABDOMEN: abdomen soft, non-tender, normo-active bowel sounds, no masses, no rebound or guarding. BACK: Back is symmetrical on inspection and there is no deformity, no midline tenderness, no CVA tenderness. SKIN: no rashes and no bruising, pale UPPER EXTREMITIES: upper extremities are grossly normal. LOWER EXTREMITIES: No pitting edema. NEURO EXAM: Normal sensorium, cranial nerves II-XII grossly intact, normal speech, no gross weakness of arms, no gross weakness of legs. Medical Decision & Procedures ER Provider Diagnostic Interpretation: Radiology results have been interpreted by the radiologist and reviewed by me. (CHEST FOR PE) ANGIO WITH FINDINGS: CTA: Mild multichamber cardiac enlargement without pericardial effusion. Coronary arterial calcifications are noted. Thoracic aorta is normal in both course and caliber with moderate mixed plaquing. The imaged great vessels appear patent. No aortic dissection or aneurysm. The pulmonary arterial tree is well-opacified to the level of the subsegmental branches and demonstrates no focal filling defects to suggest pulmonary thromboembolic disease. CT CHEST: No dominant thyroid nodule. No pathologic adenopathy. No pneumothorax or pleural effusion. Linear subsegmental dependent opacities suggest atelectasis/scarring. There are several scattered solid nodules of the lungs bilaterally including 5 mm nodule of the left lung apex, probable 8 mm paratracheal lymph node at the level left lung base on image 139 with additional scattered subcentimeters nodules, unchanged. 3 mm solid nodule of the left lower lobe on image 148 series 4 is unchanged. No new or enlarging nodules identified. Central airways are patent. Contracted gallbladder. No acute process of the imaged upper abdomen. Multifocal osseous metastatic disease again noted throughout the chest along the spine, ribs, sternum and bilateral shoulders. No pathologic fracture identified. Additionally, there are multilevel degenerative changes about the spine. IMPRESSION: 1. No acute intrathoracic abnormality identified, specifically no acute aortic pathology or evidence of pulmonary thromboembolic disease. 2. No lobar airspace consolidation or pathologic adenopathy. 3. Scattered solid pulmonary nodule of the lungs are again noted bilaterally measuring up to 5 mm, unchanged from comparison study 03/14/2018. 4. Diffuse osteoblastic metastatic disease throughout the imaged axial and appendicular skeletal system. The above report was generated using voice recognition software. It may contain grammatical, syntax or spelling errors. Electronically signed by: Pedro Pablo Davis M.D. 03/28/2018 8:20 PM Laboratory Results 03/28/18 18:45 Red Blood Count 3.18, Mean Corpuscular Volume 85.2, Mean Corpuscular Hemoglobin 26.7, Mean Corpuscular Hemoglobin Concent 31.4, Mean Platelet Volume 8.3, Neutrophils (%) (Auto) 71.2, Lymphocytes (%) (Auto) 11.4, Monocytes (%) (Auto) 11.0, Eosinophils (%) (Auto) 1.3, Basophils (%) (Auto) 0.4, Neutrophils # (Auto ) 3.36, Lymphocytes # (Auto) 0.54, Monocytes # (Auto) 0.52, Eosinophils # (Auto ) 0.06, Basophils # (Auto) 0.02 03/28/18 18:45 Test 03/28/18 18:45 03/28/18 20:50 White Blood Count 4.72 K/uL (4.8-10.8) Red Blood Count 3.18 M/uL (4.7-6.1) Hemoglobin 8.5 g/dL (14.0-18.0) Hematocrit 27.1 % (42-52) Mean Corpuscular Volume 85.2 fL (80-100) Mean Corpuscular Hemoglobin 26.7 pg (25-34) Mean Corpuscular Hemoglobin Concent 31.4 g/dl (32-36) Platelet Count 315 K/uL (130-400) Mean Platelet Volume 8.3 fL (7.4-10.4) Neutrophils (%) (Auto) 71.2 % Lymphocytes (%) (Auto) 11.4 % Monocytes (%) (Auto) 11.0 % Eosinophils (%) (Auto) 1.3 % Basophils (%) (Auto) 0.4 % Neutrophils # (Auto) 3.36 K/uL (1.4-6.5) Lymphocytes # (Auto) 0.54 K/uL (1.2-3.4) Monocytes # (Auto) 0.52 K/uL (0.11-0.59) Eosinophils # (Auto) 0.06 K/uL (0-0.5) Basophils # (Auto) 0.02 K/uL (0-0.2) RDW Standard Deviation 53.7 fL (36.4-46.3) RDW Coefficient of Variation 17.0 % (11.5-14.5) Immature Granulocyte % (Auto) 4.7 % Immature Granulocyte # (Auto) 0.22 K/uL (0.00-0.02) Red Blood Cell Morphology Unremarkable Prothrombin Time 10.8 SECONDS (9.0-12.0) Prothromb Time International Ratio 1.0 (0.9-1.1) Anion Gap 8.0 mmol/L (3-11) Est Creatinine Clear Calc Drug Dose 92.4 ml/min Estimated GFR () 102.0 Estimated GFR (Non- 88.0 BUN/Creatinine Ratio 16.1 (10-20) Calcium Level 8.1 mg/dl (8.5-10.1) Magnesium Level 1.9 mg/dl (1.8-2.4) Total Bilirubin 0.5 mg/dl (0.2-1) Aspartate Amino Transf (AST/SGOT) 36 U/L (15-37) Alanine Aminotransferase (ALT/SGPT) 15 U/L (12-78) Alkaline Phosphatase 723 U/L (45-117) Troponin I < 0.015 ng/ml (0-0.045) Pro-B-Type Natriuretic Peptide 348 pg/ml (0-1800) Total Protein 6.0 gm/dl (6.4-8.2) Albumin 2.2 gm/dl (3.4-5.0) Globulin 3.8 gm/dl (2.5-4.0) Albumin/Globulin Ratio 0.6 (0.9-2) Urine Color YELLOW Urine Appearance CLEAR (CLEAR) Urine pH 5.5 (4.5-7.5) Urine Specific [place] 1.037 (1.000-1.030) Urine Protein NEG (NEG) Urine Glucose (UA) 2+ (NEG) Urine Ketones NEG (NEG) Urine Occult Blood NEG (NEG) Urine Nitrite NEG (NEG) Urine Bilirubin NEG (NEG) Urine Urobilinogen NEG (NEG) Urine Leukocyte Esterase NEG (NEG) Laboratory results per my review. ECG Per My Interpretation Indication: SOB/dyspnea Rate (beats per minute): 73 Rhythm: normal sinus Findings: no acute ischemic change, other (Normal QRS, normal axis, normal QRS , prolonged QT) ED Course 1803: The patient was evaluated in room C10. A complete history and physical exam was performed. 2149: Pt not hypoxic with ambulation, but increasingly unsteady and weak. 2151: I reevaluated the patient. He is resting. I updated him and his on results. 2224: Upon reevaluation, the patient is the patient is stable. I discussed the findings and the treatment plan with the patient. He expresses agreement and understanding. I spoke with Dr. Turner of the [facility] Hospital[facility]. The patient will be evaluated for further management. Medical Decision Differential diagnosis: Etiologies such as metabolic, infection, hypo/hyperglycemia, electrolyte abnormalities, cardiac sources, intracerebral event, toxicologic, neurologic, as well as others were entertained. Patient ill and weak appearing here. On review of EMR patient was admitted and did receive a blood transfusion of 2 units. There is no additional evaluation including by GI to suggest other sources of possible anemia. It was suggested that it is most likely anemia due to marrow suppression from his chemotherapeutic agents being used to treat his metastatic prostate cancer. Patient does take a blood thinner, denied to me any recent black or bloody stools, frequent nosebleeds, or any bleeding from any other site. concerned about persistence of weakness since discharge, as well as increased dyspnea on exertion. No pulmonary pathology was acutely found for this. Patient does have significant cardiac history but is not not appear to be in acute CHF. Patient's H&H tonight is lower than at time of discharge. Patient hemodynamically stable throughout. I feel it is most likely the patient's weakness and dyspnea on exertion are related to his anemia and he would likely benefit from a repeat blood transfusion. Patient is anticoagulated due to his chronic atrial fibrillation. I discussed all results with patient and his , they verbalized understanding were agreeable with plan. I do not suspect bacteremia/sepsis. No evidence of acute thrombocytopenia. I do not suspect ACS. Blood Pressure Screening Patient's blood pressure: Normal blood pressure Blood pressure disposition: Did not require urgent referral Consults Time Called: 2219 Consulting Physician[facility] Returned Call: [id number] I reviewed the patient's case with Dr. Turner. He will evaluate the patient for further management. Impression Primary Impression: Generalized weakness Additional Impressions: Anemia Dyspnea on exertion Chronic kidney disease Prostate cancer metastatic to multiple sites Scribe Attestation The scribe's documentation has been prepared under my direction and personally reviewed by me in its entirety. I confirm that the note above accurately reflects all work, treatment, procedures, and medical decision making performed by me. Departure Information Dispostion Being Evaluated By Hospitalist Van Parekh M.D. (PCP) Patient Instructions My [facility] Problem Qualifiers Additional Impressions: Anemia Anemia type: unspecified type Qualified Codes: D64.9 - Anemia, unspecified Chronic kidney disease Chronic kidney disease stage: unspecified stage Qualified Codes: N18.9 - Chronic kidney disease, unspecified
[2018-03-28] MEDS ORDERED: ULT50 PO (18:29)
[2018-03-28] MEDS ORDERED: APIX1TAB3 PO (18:29)
[2018-03-28] MEDS ORDERED: PLV75 PO (18:29)
[2018-03-28] MEDS ORDERED: LXP10 PO (18:29)
[2018-03-28] MEDS ORDERED: TPRSR/25 PO (18:29)
[2018-03-28] MEDS ORDERED: LISI-461 PO (18:29)
[2018-03-28] MEDS ORDERED: RANI150T2 PO (18:29)
[2018-03-28] MEDS ORDERED: PRED-301 PO ×2 (18:29→19:37)
[2018-03-28] MEDS ORDERED: OPTIRAY 320 IV PRN (18:30)
[2018-03-28] MEDS ORDERED: CYAN1DRO UT (18:33)
[2018-03-28] MEDS ORDERED: ENZA1CAP PO (18:34)
[2018-03-28] MEDS ORDERED: DIPH1TAB87 PO (18:37)
[2018-03-28 18:56] LABS: HEMATOCRIT 27.1 % (42-52); HEMOGLOBIN 8.5 g/dL (14.0-18.0); MEAN CELL VOLUME 85.2 fL (80-100); MEAN CORPUSCULAR HEMOGLOBIN 26.7 pg (25-34); MEAN CORPUSCULAR HGB CONC 31.4 g/dl (32-36); MEAN PLATELET VOLUME 8.3 fL (7.4-10.4); PLATELET COUNT 315 K/uL (130-400); RED CELL DISTRIBUTION WIDTH SD 53.7 fL (36.4-46.3); WHITE BLOOD COUNT 4.72 K/uL (4.8-10.8)
[2018-03-28 19:16] LABS: BASO % 0.4 %; BASO ABS # 0.02 K/uL (0-0.2); EOS % 1.3 %; EOS ABS # 0.06 K/uL (0-0.5); IG# 0.22 K/uL (0.00-0.02); LYMPH % 11.4 %; LYMPH ABS # 0.54 K/uL (1.2-3.4); MONO ABS # 0.52 K/uL (0.11-0.59); NEUT % 71.2 %; NEUT ABS # 3.36 K/uL (1.4-6.5)
[2018-03-28 19:17] LABS: ALBUMIN 2.2 gm/dl (3.4-5.0); ALT/SGPT 15 U/L (12-78); AST/SGOT 36 U/L (15-37); BLOOD UREA NITROGEN 12 mg/dl (7-18); CALCIUM 8.1 mg/dl (8.5-10.1); CARBON DIOXIDE 21 mmol/L (21-32); CREATININE 0.76 mg/dl (0.60-1.40); GLUCOSE 270 mg/dl (70-99); POTASSIUM 4.3 mmol/L (3.5-5.1); SODIUM 130 mmol/L (136-145)
[2018-03-28 19:22] LABS: ALKALINE PHOSPHATASE 723 U/L (45-117)
--- NOTE | 2018-03-28 20:22 | DIAGNOSTIC IMAGING REPORT ---
(CHEST FOR PE) ANGIO WITH CT DOSE: 584.99 mGy.cm HISTORY: 77 years-old Male with history of metastatic disease presents with acute shortness of breath and weakness TECHNIQUE: Multiple CTA images of the chest were obtained after the intravenous administration of 97 ml Optiray 320. Coronal and sagittal MIPS were obtained from the axial data set and were submitted for review. A dose lowering technique was utilized adhering to the principles of ALARA. COMPARISON: Chest CT 03/14/2018. FINDINGS: CTA: Mild multichamber cardiac enlargement without pericardial effusion. Coronary arterial calcifications are noted. Thoracic aorta is normal in both course and caliber with moderate mixed plaquing. The imaged great vessels appear patent. No aortic dissection or aneurysm. The pulmonary arterial tree is well-opacified to the level of the subsegmental branches and demonstrates no focal filling defects to suggest pulmonary thromboembolic disease. CT CHEST: No dominant thyroid nodule. No pathologic adenopathy. No pneumothorax or pleural effusion. Linear subsegmental dependent opacities suggest atelectasis/scarring. There are several scattered solid nodules of the lungs bilaterally including 5 mm nodule of the left lung apex, probable 8 mm paratracheal lymph node at the level left lung base on image 139 with additional scattered subcentimeters nodules, unchanged. 3 mm solid nodule of the left lower lobe on image 148 series 4 is unchanged. No new or enlarging nodules identified. Central airways are patent. Contracted gallbladder. No acute process of the imaged upper abdomen. Multifocal osseous metastatic disease again noted throughout the chest along the spine, ribs, sternum and bilateral shoulders. No pathologic fracture identified. Additionally, there are multilevel degenerative changes about the spine. IMPRESSION: 1. No acute intrathoracic abnormality identified, specifically no acute aortic pathology or evidence of pulmonary thromboembolic disease. 2. No lobar airspace consolidation or pathologic adenopathy. 3. Scattered solid pulmonary nodule of the lungs are again noted bilaterally measuring up to 5 mm, unchanged from comparison study 03/14/2018. 4. Diffuse osteoblastic metastatic disease throughout the imaged axial and appendicular skeletal system. The above report was generated using voice recognition software. It may contain grammatical, syntax or spelling errors. Electronically signed by: Pedro Pablo Davis M.D. 03/28/2018 8:20 PM Dictated Date/Time: 03/28/2018 8:13 PM
[2018-03-28] MEDS ORDERED: GLUCOSE 10 TABS/TUBE PO PRN (22:30)
[2018-03-28] MEDS ORDERED: DEXTROSE 50% 50 ML SYR IV PRN (22:30)
[2018-03-28] MEDS ORDERED: GLUCOSE 40% GEL 15 GM TUBE PO PRN (22:30)
[2018-03-28] MEDS ORDERED: ACETAMINOPHEN 325 MG TAB PO PRN (22:30)
[2018-03-28] MEDS ORDERED: GLUCAGON FOR INJ 1 MG VIAL SQ PRN (22:30)
[2018-03-28] MEDS ORDERED: ONDANSETRON 8MG OD TAB PO PRN (22:30)
[2018-03-28] MEDS ORDERED: CARBOHYDRATES FOR HYPOGLYCEMIA PO PRN (22:30)
[2018-03-28 22:31] VITALS: BP 116/60; PULSE 68; BMI 32.1; BMI 32.9
[2018-03-28] MEDS ORDERED: IV FLUIDS COMPLETED PRN (23:15)
--- NOTE | 2018-03-28 23:26 | History and Physical ---
History & Physical Date & Time of Service: March 28, 2018 at 23:26 Chief Complaint: Shortness Of Breath, Weak, Blood Pressure Dropped Primary Care Physician: Van Valiente M.D. History of Present Illness Source: patient, spouse, hospital records The patient is a 77-year-old male with past medical history including metastatic prostate cancer to bone, and most recent [facility] admission from March 13 - March 15 with similar symptoms as presenting today with shortness of breath and significant fatigue, that had briefly improved after being transfused 2 units PRBCs during that admission. During his previous admission , he had also presented with fevers and chills and sweats, and also was found to have elevated troponin due to supply demand mismatch, all of which resolved during that admission. His reports that he has become more debilitated due to his osteoblastic bone disease, and thinks that he would benefit from therapy. Past Medical/Surgical History Medical Problems: (1) Abrasion of left arm (2) Acute bronchitis (3) Anemia (4) Anticoagulated on Coumadin (5) Arthritis (6) Back pain (7) Bronchitis (8) Bursitis of left hip (9) Cancer (10) Chest pain radiating to arm (11) Closed head injury (12) Coronary artery disease with history of myocardial infarction without history of CABG (13) Dehydration (14) Depression (15) Diabetes (16) Elevated troponin (17) Encounter for removal of sutures (18) Epigastric abdominal pain (19) Fall (20) Fever (21) Foot laceration (22) GERD (gastroesophageal reflux disease) (23) Headache (24) Hip bursitis, left (25) Hyperglycemia (26) Hyperlipidemia (27) Hypertension (28) Hypomagnesemia (29) Hypophosphatemia (30) Hypothyroidism (31) Infection of skin (32) Knee effusion, left (33) Knee pain (34) Left lower lobe pneumonia (35) Left rib fracture (36) NSTEMI, initial episode of care (37) Osteoarthritis (38) Paroxysmal atrial fibrillation (39) Pneumonia (40) Poorly controlled diabetes mellitus (41) Prostate cancer (42) Prostate cancer metastatic to bone (43) Ribs, multiple fractures (44) Right knee pain (45) Sepsis (46) Shoulder contusion (47) Skin tear of right upper extremity (48) Substernal chest pain (49) Symptomatic anemia (50) Syncope (51) Viral syndrome Surgical Problems: (1) History of heart artery stent (2) S/P prostatectomy (3) Stented coronary artery (4) Total knee replacement status Family History Blood clots Diabetes mellitus Hypertension Social History Smoking Status: Never Smoker Smokeless Tobacco Use: No Alcohol Use: none Drug Use: none Marital Status: Housing status: lives with family Occupational Status: retired Immunizations History of Influenza Vaccine: No History of Tetanus Vaccine?: YEARS AGO History of Pneumococcal: No History of Hepatitis B Vaccine: No Allergies Coded Allergies: Penicillins (Verified Allergy, Mild, HIVE'S, 11/27/17) [place] (Verified Allergy, Mild, HIVES, 11/27/17) Aspirin (Verified Allergy, Unknown, HIVES, 11/27/17) [place] Flour (Verified Allergy, Unknown, HIVES, 03/14/18) [place] (Verified Allergy, Unknown, HIVES, 11/27/17) Tomato (Verified Allergy, Unknown, HIVES, 11/27/17) Egg (Verified Adverse Reaction, Unknown, Diarrhea, 11/28/17) Eggs or Egg-derived Products (Unverified Adverse Reaction, Unknown, GI SYMPTOMS, 03/14/18) Food allergy to eggs, also entered this allergy as a drug allergy Home Medications Scheduled Apixaban (Eliquis), 5 MG PO BID Atorvastatin (Lipitor), 80 MG PO HS Clopidogrel Bisulfate (Clopidogrel), 75 MG PO QAM Cyanocobalamin (Vitamin B12), 2 DROPS UT QPM Enzalutamide (Xtandi), 160 MG PO QD@1600 Escitalopram Oxalate (Escitalopram Oxalate), 10 MG PO DAILY Insulin Glargine (Toujeo Solostar), 35 UNITS SC HS Insulin Lispro (Human) (Humalog Kwikpen), 1 DOSE SC BIDM Levothyroxine Sodium (Levothyroxine Sodium), 100 MCG PO QAM Lisinopril (Lisinopril), 5 MG PO HOLD Magnesium Oxide (Mag-Ox), 400 MG PO BID Metoprolol Succinate (Metoprolol Succinate ER), 12.5 MG PO QAM Pot Phosphate Monobasic W/ Sod (Phospha 250 Neutral), 1 TAB PO BID Prednisone (Prednisone), 5 MG PO QAM Prednisone (Prednisone), 5 MG PO QPM UD Ranitidine HCl (Ranitidine HCl), 150 MG PO BID Scheduled PRN Diphenhydramine Hcl (Benadryl Allergy), 25 MG PO UD PRN for Allergic Reaction Tramadol HCl (Tramadol HCl), 50 MG PO Q6-8HRS PRN for Pain Review of Systems The patient denies chest pain, palpitations, cough, lower extremity swelling, sore throat, fevers, chills, sweats, nausea, vomiting, diarrhea , constipation, abdominal pain, pelvic pain, blood in urine or stool, dysuria, urinary frequency or urgency, lightheadedness , dizziness, headache, memory loss, loss of consciousness, rash, abnormal bruising or bleeding, focal weakness, numbness or tingling in arms or legs, generalized arthralgias or myalgias, back or neck pain, or night sweats. The review of systems is otherwise negative other than for that already noted above, and at least 10 systems have been reviewed. Physical Exam Vital Signs Date Time Temp Pulse Resp B/P (MAP) Pulse Ox O2 Delivery O2 Flow Rate FiO2 03/28/18 23:19 72 18 129/64 98 03/28/18 23:06 72 18 129/64 98 Room Air 03/28/18 22:31 68 16 116/60 03/28/18 22:02 71 18 116/60 95 Room Air 03/28/18 21:40 98 Room Air 03/28/18 20:39 71 17 118/62 96 Room Air 03/28/18 19:40 72 18 124/85 97 Room Air 03/28/18 18:44 72 22 131/71 95 Room Air 03/28/18 18:42 71 03/28/18 18:20 97 Room Air 03/28/18 17:43 36.3 77 18 113/69 94 Room Air The patient is awake, alert and oriented 3, looks very fatigued, normocephalic and atraumatic, lying in bed and in no acute distress. HEENT--PERRL, EOMI, mucous membranes and oropharynx dry. Neck--supple. No JVD. No bruits. Thyroid normal, trachea midline, no adenopathy. Heart--normal S1 and S2. No murmurs, rubs or gallops. Lungs--clear bilaterally, no respiratory distress, no accessory muscle use. Abdomen--normal bowel sounds and soft. Nontender. Nondistended, no hernias or masses, no organomegaly. Extremities--no cyanosis or clubbing. No edema. There are good distal pulses b/ l. Dermatologic--normal skin turgor, normal color, no abnormal lymph nodes, no rash. Neurologic--cranial nerves II through XII grossly intact. Rheumatologic--normal range of motion. Psychiatric--normal affect. Diagnostics Laboratory Results Results Past 24 Hours Test 03/28/18 18:45 03/28/18 20:50 Range/Units White Blood Count 4.72 4.8-10.8 K/uL Red Blood Count 3.18 4.7-6.1 M/uL Hemoglobin 8.5 14.0-18.0 g/dL Hematocrit 27.1 42-52 % Mean Corpuscular Volume 85.2 80-100 fL Mean Corpuscular Hemoglobin 26.7 25-34 pg Mean Corpuscular Hemoglobin Concent 31.4 32-36 g/dl Platelet Count 315 130-400 K/uL Mean Platelet Volume 8.3 7.4-10.4 fL Neutrophils (%) (Auto) 71.2 % Lymphocytes (%) (Auto) 11.4 % Monocytes (%) (Auto) 11.0 % Eosinophils (%) (Auto) 1.3 % Basophils (%) (Auto) 0.4 % Neutrophils # (Auto) 3.36 1.4-6.5 K/uL Lymphocytes # (Auto) 0.54 1.2-3.4 K/uL Monocytes # (Auto) 0.52 0.11-0.59 K/uL Eosinophils # (Auto) 0.06 0-0.5 K/uL Basophils # (Auto) 0.02 0-0.2 K/uL RDW Standard Deviation 53.7 36.4-46.3 fL RDW Coefficient of Variation 17.0 11.5-14.5 % Immature Granulocyte % (Auto) 4.7 % Immature Granulocyte # (Auto) 0.22 0.00-0.02 K/uL Red Blood Cell Morphology Unremarkable Prothrombin Time 10.8 9.0-12.0 SECONDS Prothromb Time International Ratio 1.0 0.9-1.1 Sodium Level 130 136-145 mmol/L Potassium Level 4.3 3.5-5.1 mmol/L Chloride Level 101 98-107 mmol/L Carbon Dioxide Level 21 21-32 mmol/L Anion Gap 8.0 3-11 mmol/L Blood Urea Nitrogen 12 7-18 mg/dl Creatinine 0.76 0.60-1.40 mg/dl Est Creatinine Clear Calc Drug Dose 92.4 ml/min Estimated GFR () 102.0 Estimated GFR (Non- 88.0 BUN/Creatinine Ratio 16.1 10-20 Random Glucose 270 70-99 mg/dl Calcium Level 8.1 8.5-10.1 mg/dl Magnesium Level 1.9 1.8-2.4 mg/dl Total Bilirubin 0.5 0.2-1 mg/dl Aspartate Amino Transf (AST/SGOT) 36 15-37 U/L Alanine Aminotransferase (ALT/SGPT) 15 12-78 U/L Alkaline Phosphatase 723 45-117 U/L Troponin I < 0.015 0-0.045 ng/ml Pro-B-Type Natriuretic Peptide 348 0-1800 pg/ml Total Protein 6.0 6.4-8.2 gm/dl Albumin 2.2 3.4-5.0 gm/dl Globulin 3.8 2.5-4.0 gm/dl Albumin/Globulin Ratio 0.6 0.9-2 Urine Color YELLOW Urine Appearance CLEAR CLEAR Urine pH 5.5 4.5-7.5 Urine Specific [place] 1.037 1.000-1.030 Urine Protein NEG NEG Urine Glucose (UA) 2+ NEG Urine Ketones NEG NEG Urine Occult Blood NEG NEG Urine Nitrite NEG NEG Urine Bilirubin NEG NEG Urine Urobilinogen NEG NEG Urine Leukocyte Esterase NEG NEG Diagnostic Radiology Patient Name: JOSE GUERRA Unit Number: [id number] Dictated: 03/28/182012 Transcribed: 03/28/182012 JRB Printed Date/Time: [~ rep prt dt]/[~ rep prt tm] [~ rep ct labl] - [~ rep ct ivnm] [facility] [place] [place] [address] Dictated: 03/28/182012 Transcribed: 03/28/182012 JRB Printed Date/Time: [~ rep prt dt]/[~ rep prt tm] [~ rep ct labl] - [~ rep ct ivnm] [~ rep ct add3]] (CHEST FOR PE) ANGIO WITH CT DOSE: 584.99 mGy.cm HISTORY: 77 years-old Male with history of metastatic disease presents with acute shortness of breath and weakness TECHNIQUE: Multiple CTA images of the chest were obtained after the intravenous administration of 97 ml Optiray 320. Coronal and sagittal MIPS were obtained from the axial data set and were submitted for review. A dose lowering technique was utilized adhering to the principles of ALARA. COMPARISON: Chest CT 03/14/2018. FINDINGS: CTA: Mild multichamber cardiac enlargement without pericardial effusion. Coronary arterial calcifications are noted. Thoracic aorta is normal in both course and caliber with moderate mixed plaquing. The imaged great vessels appear patent. No aortic dissection or aneurysm. The pulmonary arterial tree is well-opacified to the level of the subsegmental branches and demonstrates no focal filling defects to suggest pulmonary thromboembolic disease. CT CHEST: No dominant thyroid nodule. No pathologic adenopathy. No pneumothorax or pleural effusion. Linear subsegmental dependent opacities suggest atelectasis/scarring. There are several scattered solid nodules of the lungs bilaterally including 5 mm nodule of the left lung apex, probable 8 mm paratracheal lymph node at the level left lung base on image 139 with additional scattered subcentimeters nodules, unchanged. 3 mm solid nodule of the left lower lobe on image 148 series 4 is unchanged. No new or enlarging nodules identified. Central airways are patent. Contracted gallbladder. No acute process of the imaged upper abdomen. Multifocal osseous metastatic disease again noted throughout the chest along the spine, ribs, sternum and bilateral shoulders. No pathologic fracture identified. Additionally, there are multilevel degenerative changes about the spine. IMPRESSION: 1. No acute intrathoracic abnormality identified, specifically no acute aortic pathology or evidence of pulmonary thromboembolic disease. 2. No lobar airspace consolidation or pathologic adenopathy. 3. Scattered solid pulmonary nodule of the lungs are again noted bilaterally measuring up to 5 mm, unchanged from comparison study 03/14/2018. 4. Diffuse osteoblastic metastatic disease throughout the imaged axial and appendicular skeletal system. The above report was generated using voice recognition software. It may contain grammatical, syntax or spelling errors. Electronically signed by: Pedro Pablo Davis M.D. 03/28/2018 8:20 PM Dictated Date/Time: 03/28/2018 8:13 PM The status of this report is Signed. Draft = Not yet reviewed or approved by Radiologist. Signed = Reviewed and approved by Radiologist. <AttendingPhy></AttendingPhy> <FamilyPhy>Van Valiente M.D.</FamilyPhy> < PrimaryPhy>Van Valiente M.D.</PrimaryPhy> <UnitNumber>[id number]</UnitNumber > <VisitNumber>[id number]</VisitNumber> <PatientName>JOSE GUERRA L</ PatientName> <DateOfBirth>1940</DateOfBirth> <Location>[facility]</Location> < ServiceDate>03/28/18</ServiceDate> <MNE>ESINDI</MNE> <OrderingPhy>Shikha Gallego DO</OrderingPhy> <OrderingPhyMNE>f rep ord dr foote</OrderingPhyMNE> < DictatingPhyMNE>f rep dict dr foote</DictatingPhyMNE> <CCListMNE>f rep ct mne</ CCListMNE> <AdmittingPhyMNE>f pt admit dr foote</AdmittingPhyMNE> <AttendingPhyMNE >f pt attend dr foote</AttendingPhyMNE> <ConsultingPhyMNE>f pt consult dr foote</ConsultingPhyMNE> <FamilyPhyMNE>f pt fam dr foote</FamilyPhyMNE> <OtherPhyMNE>f pt other dr foote</OtherPhyMNE> < PrimaryPhyMNE>f pt prim care dr foote</PrimaryPhyMNE> <ReferringPhyMNE>f pt referring dr foote</ReferringPhyMNE> EKG JOSE GUERRA ID:[id number] 28-MAR-2018 18:41:26 [facility] Sinus rhythm with Premature supraventricular complexes Nonspecific T wave abnormality Prolonged QT Abnormal ECG When compared with ECG of 15-MAR-2018 07:29, No significant change was found 25mm/s 10mm/mV 150Hz 8.0 SP2 12SL 241 MÓNICA: 3 Referred by: Referred Self Unconfirmed Vent. rate 73 BPM WA interval 162 ms QRS duration 86 ms QT/QTc 452/497 ms P-R-T axes 49 9 62 1940 (77 yr) Male 109in 1lb Room:C10 Loc:15 Bilingual [employer]:Francis Causey Impression Assessment and Plan Metastatic prostate cancer to bone on oral chemotherapy/symptomatic anemia-- Admit to the medical floor. Transfuse 2 units packed red blood cells irradiated. Repeat laboratories in the a.m. Continue Xtandi. CAD/hypertension/history of PA/paroxysmal atrial fibrillation/history coronary artery stent-- Continue Eliquis 5 mg p.o. twice daily, clopidogrel 75 mg every morning, metoprolol succinate ER 12.5 mg p.o. every morning. Hyperlipidemia-- Continue atorvastatin 80 mg p.o. at bedtime. Diabetes mellitus-- Presently on Toujeo 35 units subcu at bedtime. Admit on Lantus 16 units subcu at bedtime. Placed on Accu-Cheks before meals and at bedtime with NovoLog coverage per scale. Hypothyroidism-- Continue levothyroxine sodium 100 mcg every morning. Chronic prednisone use-- Double dose of prednisone to 10 mg p.o. twice daily for stress dose. GERD-- Continue ranitidine 150 mg p.o. twice daily. Depression-- Continue Lexapro 10 mg p.o. daily. Vitamin B12 deficiency-- Takes 2 drops under the tongue every evening. Advanced Directives Existing Advance Directive: No Existing Living Will: No Existing Power of Registered Nurse Midwife: No Resuscitation Status VTE Prophylaxis Will order VTE Prophylaxis: Yes Social Service Consult Cancer Patient Under [place]
[2018-03-28 23:50] VITALS: BP 162/79; PULSE 77; TEMP 36.6; O2SAT 98
[2018-03-29] VITALS (17 sets, daily range): BP systolic 133–167; BP diastolic 62–85; PULSE 62–94; TEMP 36.4–37.5; O2SAT 92–98; BMI 32.9
[2018-03-29] MEDS ORDERED: NURSING VERBAL MED ORDER ONE (00:15)
[2018-03-29] MEDS: APIXABAN 2.5 MG TAB PO SCH ×3 (00:46→21:04)
[2018-03-29] MEDS: ATORVASTATIN 40 MG TAB PO SCH ×2 (00:47→21:04)
[2018-03-29] MEDS: RANITIDINE HCL 150 MG TAB PO SCH ×3 (00:47→21:05)
[2018-03-29] MEDS: MAGNESIUM OXIDE 400 MG TAB PO SCH ×3 (00:48→21:05)
[2018-03-29] MEDS: INSULIN GLARGINE SOLOSTAR 100 UNITS/ML 3 ML PEN SC SCH (00:49)
[2018-03-29] MEDS: LEVOTHYROXINE 100 MCG TAB PO SCH (06:47)
[2018-03-29] MEDS: METOPROLOL SUCC 25MG EXT REL TAB PO SCH (08:06)
[2018-03-29] MEDS: ESCITALOPRAM OXALATE 10 MG TAB PO SCH (08:19)
[2018-03-29] MEDS: POT PHOSPHATE MONOBASIC W/ SOD TAB PO SCH ×2 (08:19→21:04)
[2018-03-29] MEDS: CLOPIDOGREL BISULFATE 75 MG TAB PO SCH (08:20)
[2018-03-29] MEDS: INSULIN ASPART 100 UNITS/ML 3 ML PEN SC SCH ×4 (08:33→21:07)
[2018-03-29] MEDS ORDERED: MELOXICAM 7.5 MG TAB PO ONE (09:19)
[2018-03-29] MEDS ORDERED: DICLOFENAC SOD 1% GEL 100 GM TUBE EXT ONE (09:19)
[2018-03-29] MEDS ORDERED: HYDROCODONE/ACETAMIN 5/325MG TAB PO PRN (09:30)
[2018-03-29] MEDS: ACETAMINOPHEN 325 MG TAB PO SCH ×2 (12:31→21:04)
[2018-03-29] MEDS: DICLOFENAC SOD 1% GEL 100 GM TUBE EXT SCH ×3 (12:32→21:03)
[2018-03-29] MEDS ORDERED: ENZALUTAMIDE 160 MG PO SCH (16:00)
--- NOTE | 2018-03-29 16:21 | Progress Note ---
Subjective Date of Service: March 29, 2018. Subjective Pt evaluation today including: conversation w/ patient, conversation w/ family , physical exam, chart review, lab review, review of studies, review of inpatient medication list seen this AM revisited later in the day and discussed with family somewhere on the order of at least 45mins face to face through the day notes this AM feeling no better after transfusion revisited HPI from "blank" -- notes that mainly hurting all over is what's making him feel bad, and in light of no improvement with transfusion and negative current and recent cardiopulmonary w/u thinks it's plausible that his pain is what's mkaing him sob family notes that the biggest problem has been pain and weakness in decline Problem List Medical Problems: (1) Abrasion of left arm Status: Acute (2) Anemia Status: Chronic (3) Back pain Status: Acute (4) Bronchitis Status: Acute (5) Bursitis of left hip Status: Acute (6) Chronic kidney disease Status: Acute (7) Dehydration Status: Acute (8) Dyspnea on exertion Status: Acute (9) Elevated troponin Status: Acute (10) Epigastric abdominal pain Status: Acute (11) Fever Status: Acute (12) Generalized weakness Status: Acute (13) Headache Status: Acute (14) Infection of skin Status: Acute (15) Left lower lobe pneumonia Status: Acute (16) Poorly controlled diabetes mellitus Status: Acute (17) Prostate cancer metastatic to multiple sites Status: Acute (18) Right knee pain Status: Acute (19) Skin tear of right upper extremity Status: Acute (20) Substernal chest pain Status: Acute (21) Syncope Status: Acute (22) Viral syndrome Status: Acute Surgical Problems: (1) S/P prostatectomy Status: Chronic (2) Total knee replacement status Status: Acute Review of Systems all other ROS otherwise negative except for as above Objective Vital Signs Date Time Temp Pulse Resp B/P (MAP) Pulse Ox O2 Delivery O2 Flow Rate FiO2 03/29/18 16:07 36.4 76 18 133/78 (96) 96 Room Air 03/29/18 13:30 36.8 03/29/18 12:25 37.5 86 151/85 03/29/18 12:03 36.7 82 18 151/67 (95) 95 03/29/18 11:25 36.7 82 18 151/67 95 03/29/18 10:00 36.5 80 16 154/70 03/29/18 09:40 37.1 94 16 156/79 92 03/29/18 09:22 36.5 76 18 167/62 98 03/29/18 08:30 94 Room Air 03/29/18 07:32 37.3 80 16 138/72 (94) 94 03/29/18 07:00 37.3 80 16 138/72 94 03/29/18 05:27 37.5 80 16 137/67 98 03/29/18 04:23 37.5 80 14 134/66 96 03/29/18 00:00 98 Room Air 03/28/18 23:50 36.6 77 17 162/79 (106) 98 Room Air 03/28/18 23:19 72 18 129/64 98 03/28/18 23:06 72 18 129/64 98 Room Air 03/28/18 22:31 68 16 116/60 03/28/18 22:02 71 18 116/60 95 Room Air 03/28/18 21:40 98 Room Air 03/28/18 20:39 71 17 118/62 96 Room Air 03/28/18 19:40 72 18 124/85 97 Room Air 03/28/18 18:44 72 22 131/71 95 Room Air 03/28/18 18:42 71 03/28/18 18:20 97 Room Air 03/28/18 17:43 36.3 77 18 113/69 94 Room Air Physical Exam General Appearance: no apparent distress Eyes: EOMI ENT: hearing grossly normal Neck: trachea midline Respiratory/Chest: no respiratory distress, no accessory muscle use Extremities: normal range of motion Neurologic/Psychiatric: plow mechanic II-XII nml as tested, alert, normal mood/affect Skin: normal color, warm/dry Laboratory Results Last 24 Hours Test 03/28/18 18:45 03/28/18 20:50 03/29/18 00:16 03/29/18 08:05 White Blood Count 4.72 K/uL Red Blood Count 3.18 M/uL Hemoglobin 8.5 g/dL Hematocrit 27.1 % Mean Corpuscular Volume 85.2 fL Mean Corpuscular Hemoglobin 26.7 pg Mean Corpuscular Hemoglobin Concent 31.4 g/dl Platelet Count 315 K/uL Mean Platelet Volume 8.3 fL Neutrophils (%) (Auto) 71.2 % Lymphocytes (%) (Auto) 11.4 % Monocytes (%) (Auto) 11.0 % Eosinophils (%) (Auto) 1.3 % Basophils (%) (Auto) 0.4 % Neutrophils # (Auto) 3.36 K/uL Lymphocytes # (Auto) 0.54 K/uL Monocytes # (Auto) 0.52 K/uL Eosinophils # (Auto) 0.06 K/uL Basophils # (Auto) 0.02 K/uL RDW Standard Deviation 53.7 fL RDW Coefficient of Variation 17.0 % Immature Granulocyte % (Auto) 4.7 % Immature Granulocyte # (Auto) 0.22 K/uL Red Blood Cell Morphology Unremarkable Prothrombin Time 10.8 SECONDS Prothromb Time International Ratio 1.0 Sodium Level 130 mmol/L Potassium Level 4.3 mmol/L Chloride Level 101 mmol/L Carbon Dioxide Level 21 mmol/L Anion Gap 8.0 mmol/L Blood Urea Nitrogen 12 mg/dl Creatinine 0.76 mg/dl Est Creatinine Clear Calc Drug Dose 92.4 ml/min Estimated GFR () 102.0 Estimated GFR (Non- 88.0 BUN/Creatinine Ratio 16.1 Random Glucose 270 mg/dl Calcium Level 8.1 mg/dl Magnesium Level 1.9 mg/dl Total Bilirubin 0.5 mg/dl Aspartate Amino Transf (AST/SGOT) 36 U/L Alanine Aminotransferase (ALT/SGPT) 15 U/L Alkaline Phosphatase 723 U/L Troponin I < 0.015 ng/ml Pro-B-Type Natriuretic Peptide 348 pg/ml Total Protein 6.0 gm/dl Albumin 2.2 gm/dl Globulin 3.8 gm/dl Albumin/Globulin Ratio 0.6 Urine Color YELLOW Urine Appearance CLEAR Urine pH 5.5 Urine Specific [place] 1.037 Urine Protein NEG Urine Glucose (UA) 2+ Urine Ketones NEG Urine Occult Blood NEG Urine Nitrite NEG Urine Bilirubin NEG Urine Urobilinogen NEG Urine Leukocyte Esterase NEG Bedside Glucose 160 mg/dl 141 mg/dl Assessment and Plan Metastatic prostate cancer to bone on oral chemotherapy//diffuse pain all over -suspect pain is the main reason for current decline --> hard to tell if pain is from pre-existing mets and worsneing arthritic/muscular/ligamentous pain or from this and a worsening metastatic picture --> bone scan and PSA to delineate cancer situation -- if looks like worsening then consult oncology for ?other options -manage pain: scheduled tylenol, bid mobic, prn norco. consider escalating to gabapentin chronic steroid use -no role for weaning right now given his illness - actually if anything, while not entirely likely since there is more than enough above to be making him feel bad, it is possible that relative adrenal insufficiency is part of what's making him sick. if no improvmeent with above, may consider empiric increase in steroids for short term as therapeutic trial (admitting physician increased to 10mg bid, would eascalate to IV hydrocorotisone for short term) anemia -due to very real clinical concern of sypmtomatic anemia, he was transfused 2 units - but feels no different. therefore (but only with the benefit of hindsight given his frailty and the complexity of his case) he did not have symptomatic anemia CAD/hypertension/history of [place]/paroxysmal atrial fibrillation/history coronary artery stent-- Continue Eliquis 5 mg p.o. twice daily, clopidogrel 75 mg every morning, metoprolol succinate ER 12.5 mg p.o. every morning. clinically stable Hyperlipidemia-- Continue atorvastatin 80 mg p.o. at bedtime. Diabetes mellitus-- sugars have been reasonable, continue current insulins Hypothyroidism-- Continue levothyroxine sodium 100 mcg every morning. last TSH normal not even 2 months ago. GERD-- Continue ranitidine 150 mg p.o. twice daily. Depression-- Continue Lexapro 10 mg p.o. daily. Vitamin B12 deficiency-- Takes 2 drops under the tongue every evening. DVT proph -apixiban
[2018-03-29] MEDS: ENZALUTAMIDE 40 MG PO SCH (17:08)
[2018-03-29] MEDS: MELOXICAM 7.5 MG TAB PO SCH (21:04)
[2018-03-30] VITALS (9 sets, daily range): BP systolic 123–143; BP diastolic 62–82; PULSE 60–73; TEMP 36.4–36.9; O2SAT 94–98; BMI 31.8
[2018-03-30 05:43] LABS: BASO % 0.3 %; BASO ABS # 0.01 K/uL (0-0.2); EOS % 2.3 %; EOS ABS # 0.09 K/uL (0-0.5); HEMATOCRIT 34.2 % (42-52); IG# 0.18 K/uL (0.00-0.02); LYMPH % 14.5 %; LYMPH ABS # 0.57 K/uL (1.2-3.4); MEAN CELL VOLUME 85.7 fL (80-100); MEAN CORPUSCULAR HEMOGLOBIN 27.6 pg (25-34); MEAN CORPUSCULAR HGB CONC 32.2 g/dl (32-36); MEAN PLATELET VOLUME 8.5 fL (7.4-10.4); MONO % 11.5 %; MONO ABS # 0.45 K/uL (0.11-0.59); NEUT % 66.8 %; NEUT ABS # 2.63 K/uL (1.4-6.5); PLATELET COUNT 315 K/uL (130-400); RED CELL DISTRIBUTION WIDTH CV 16.2 % (11.5-14.5); WHITE BLOOD COUNT 3.93 K/uL (4.8-10.8)
[2018-03-30 06:13] LABS: CALCIUM 7.8 mg/dl (8.5-10.1); CREATININE 0.68 mg/dl (0.60-1.40); POTASSIUM 3.9 mmol/L (3.5-5.1)
[2018-03-30] MEDS: LEVOTHYROXINE 100 MCG TAB PO SCH (06:23)
[2018-03-30] MEDS: METOPROLOL SUCC 25MG EXT REL TAB PO SCH (08:54)
[2018-03-30] MEDS: RANITIDINE HCL 150 MG TAB PO SCH ×2 (08:55→21:30)
[2018-03-30] MEDS: CLOPIDOGREL BISULFATE 75 MG TAB PO SCH (08:55)
[2018-03-30] MEDS: ESCITALOPRAM OXALATE 10 MG TAB PO SCH (08:55)
[2018-03-30] MEDS: APIXABAN 2.5 MG TAB PO SCH ×2 (08:56→21:30)
[2018-03-30] MEDS: DICLOFENAC SOD 1% GEL 100 GM TUBE EXT SCH ×4 (08:57→21:27)
[2018-03-30] MEDS: MAGNESIUM OXIDE 400 MG TAB PO SCH ×2 (08:57→21:31)
[2018-03-30] MEDS: BOOST GLUCOSE CONTROL PO SCH ×2 (08:57→17:00)
[2018-03-30] MEDS: MELOXICAM 7.5 MG TAB PO SCH ×2 (08:57→21:30)
[2018-03-30] MEDS: ACETAMINOPHEN 325 MG TAB PO SCH ×3 (08:57→21:30)
[2018-03-30] MEDS: INSULIN ASPART 100 UNITS/ML 3 ML PEN SC SCH ×4 (09:01→21:37)
[2018-03-30] MEDS: POT PHOSPHATE MONOBASIC W/ SOD TAB PO SCH ×2 (09:02→21:30)
--- NOTE | 2018-03-30 13:29 | Family Medicine Progress Note ---
Progress Note Date of Service March 30, 2018. Subjective Pt evaluation today including: conversation w/ patient, conversation w/ family ( at bedside), physical exam No complaints at this time Slept well Continues to have fatigue. Notes that it started about 2 weeks ago. Has been on Xtandi for 5 weeks. Also has had pain from mets but this has been fairly well controlled since pain med adjustment yesterday. No current pain No nursing concerns at this time. Additional Comments: A 10 point review of systems was negative unless stated above. Medications Current Inpatient Medications Medications (Trade) Dose Ordered Sig/Jean-Claude Route Start Time Stop Time Status Last Admin Dose Admin Ioversol (Optiray 320) 100 ml UD PRN IV 03/28/18 18:30 04/01/18 18:29 Atorvastatin Calcium (Lipitor Tab) 80 mg HS PO 03/29/18 21:00 04/28/18 20:59 03/29/18 21:04 80 MG Clopidogrel Bisulfate (plAVix TAB) 75 mg QAM PO 03/29/18 08:00 04/28/18 08:59 03/30/18 08:55 75 MG Escitalopram Oxalate (Lexapro Tab) 10 mg DAILY PO 03/29/18 08:00 04/28/18 08:59 03/30/18 08:55 10 MG Levothyroxine Sodium (Synthroid Tab) 100 mcg DAILYBB PO 03/29/18 06:30 04/28/18 06:29 03/30/18 06:23 100 MCG Magnesium Oxide (Mag-Ox Tab) 400 mg BID PO 03/29/18 08:00 04/28/18 08:59 03/30/18 08:57 400 MG Metoprolol Succinate (Toprol Xl Tab) 12.5 mg QAM PO 03/29/18 08:00 04/28/18 08:59 03/30/18 08:54 12.5 MG Potassium/ Phosphorus/Sodium (Phospha 250 Neutral 155-852-130 Mg) 1 tab BID PO 03/29/18 08:00 04/28/18 08:59 03/30/18 09:02 1 TAB Prednisone (PredniSONE TAB) 10 mg QAM PO 03/29/18 08:00 04/28/18 08:59 03/30/18 08:56 10 MG Ranitidine HCl (zANTac TAB) 150 mg BID PO 03/29/18 08:00 04/28/18 08:59 03/30/18 08:55 150 MG Apixaban (Eliquis Tab) 5 mg BID PO 03/29/18 08:00 04/28/18 08:59 03/30/18 08:56 5 MG Diphenhydramine HCl (Benadryl Cap) 25 mg DAILY PRN PO 03/28/18 22:30 04/27/18 22:29 Insulin Glargine (Lantus Solostar Pen) 16 units HS SC 03/29/18 21:00 04/28/18 20:59 03/29/18 00:49 16 UNITS Ondansetron HCl (Zofran Odt) 8 mg Q6H PRN PO 03/28/18 22:30 04/27/18 22:29 Insulin Aspart (novoLOG ASPART) SLIDING SCALE If C... ACHS SC 03/29/18 06:30 04/28/18 06:59 03/30/18 12:53 9 UNITS Glucose (Glucose 40% Gel) 15-30 GRAMS 15 GRAMS... UD PRN PO 03/28/18 22:30 04/27/18 22:29 Glucose (Glucose Chew Tab) 4-8 Tablets 4 Tabl... UD PRN PO 03/28/18 22:30 04/27/18 22:29 Dextrose (Dextrose 50% 50ML Syringe) 25-50ML OF 50% DW IV FOR... UD PRN IV 03/28/18 22:30 04/27/18 22:29 Glucagon (Glucagon Inj) 1 mg UD PRN SQ 03/28/18 22:30 04/27/18 22:29 Carbohydrates (Carbohydrates For Hypoglycemia) 15-30 GRAMS 15 grams if BSG 54-69... UD PRN PO 03/28/18 22:30 04/27/18 22:29 Miscellaneous (Iv Fluids Completed) 1 ea PRN PRN N/A 03/28/18 23:15 03/28/19 23:14 Acetaminophen (Tylenol Tab) 650 mg TID PO 03/29/18 14:00 04/27/18 22:29 03/30/18 08:57 650 MG Meloxicam (Mobic Tab) 7.5 mg BID PO 03/29/18 20:00 04/28/18 19:59 03/30/18 08:57 7.5 MG Diclofenac Sodium (Voltaren 1% Top Gel) 1 appln QID EXT 03/29/18 12:00 04/28/18 11:59 03/30/18 12:49 1 APPLN Acetaminophen/ Hydrocodone Bitart (Trosper 5/325 Tab) 1 tab TID PRN PO 03/29/18 09:30 04/12/18 09:29 Enteral Nutritional Formula (Boost Glucose Control) 1 can BIDM PO 03/30/18 08:00 04/29/18 07:59 03/30/18 08:57 1 CAN Objective Vital Signs Date Time Temp Pulse Resp B/P (MAP) Pulse Ox O2 Delivery O2 Flow Rate FiO2 03/30/18 11:44 36.5 69 16 129/68 (88) 97 03/30/18 09:00 98 Room Air 03/30/18 08:01 36.4 62 16 125/74 (91) 98 03/30/18 03:41 36.6 69 16 143/67 (92) 97 Room Air 03/30/18 00:00 98 Room Air 03/29/18 23:06 36.6 62 20 147/83 (104) 96 Room Air 03/29/18 20:44 36.6 67 20 139/76 (97) 97 Room Air 03/29/18 16:07 36.4 76 18 133/78 (96) 96 Room Air 03/29/18 16:00 95 Room Air 03/29/18 13:30 36.8 Physical Exam General Appearance: WD/WN, no apparent distress Eyes: normal inspection, EOMI ENT: hearing grossly normal, pharynx normal Neck: supple, no adenopathy, no JVD Respiratory/Chest: lungs clear, no respiratory distress Cardiovascular: regular rate, rhythm, no gallop, no murmur Abdomen: normal bowel sounds, non tender, soft Extremities: non-tender, no pedal edema Neurologic/Psychiatric: alert, normal mood/affect, oriented x 3 Skin: normal color, warm/dry, no rash Lymphatic: no adenopathy Laboratory Results Last 24 Hours Test 03/29/18 16:50 03/29/18 20:07 03/30/18 05:15 03/30/18 07:43 Bedside Glucose 159 mg/dl 263 mg/dl 143 mg/dl White Blood Count 3.93 K/uL Red Blood Count 3.99 M/uL Hemoglobin 11.0 g/dL Hematocrit 34.2 % Mean Corpuscular Volume 85.7 fL Mean Corpuscular Hemoglobin 27.6 pg Mean Corpuscular Hemoglobin Concent 32.2 g/dl Platelet Count 315 K/uL Mean Platelet Volume 8.5 fL Neutrophils (%) (Auto) 66.8 % Lymphocytes (%) (Auto) 14.5 % Monocytes (%) (Auto) 11.5 % Eosinophils (%) (Auto) 2.3 % Basophils (%) (Auto) 0.3 % Neutrophils # (Auto) 2.63 K/uL Lymphocytes # (Auto) 0.57 K/uL Monocytes # (Auto) 0.45 K/uL Eosinophils # (Auto) 0.09 K/uL Basophils # (Auto) 0.01 K/uL RDW Standard Deviation 51.0 fL RDW Coefficient of Variation 16.2 % Immature Granulocyte % (Auto) 4.6 % Immature Granulocyte # (Auto) 0.18 K/uL Sodium Level 132 mmol/L Potassium Level 3.9 mmol/L Chloride Level 104 mmol/L Carbon Dioxide Level 22 mmol/L Anion Gap 6.0 mmol/L Blood Urea Nitrogen 10 mg/dl Creatinine 0.68 mg/dl Est Creatinine Clear Calc Drug Dose 103.2 ml/min Estimated GFR () 106.8 Estimated GFR (Non- 92.1 BUN/Creatinine Ratio 15.3 Random Glucose 140 mg/dl Calcium Level 7.8 mg/dl Test 03/30/18 11:31 Bedside Glucose 224 mg/dl Assessment and Plan 77 year old male with hx of metastatic prostate cancer who presents with acute on chronic weakness/failure to thrive. - Weakness with metastatic prostate cancer: Decline seems to have chronic flavor but has certainly worsened over the past 2 weeks. Weakness may also be pain worsening immobility/deconditioning and vice versa. PT and OT evaluation required. May be part of cancer progression, bone scan to evaluate met burden pending. PSA tomorrow AM Symptoms not improved after 2 units PRBCs so symptomatically less likely. Consult heme/onc (Dr. Ku) for input on whether this may be chemotherapy- related and how this would influence upcoming treatments. Pain much better controlled today. Continue Tylenol and Mobic Scheduled + Trosper PRN - Chronic steroid use: Continue as this has been a chronic regimen with inability to wean. Did get stress steroid dosing initially but would avoid additional stress dosing given that he is currently stable with his symptoms. - Anemia: Initial transfusion with 2 units PRBCs as symptomatic anemia suspect, however patients symptoms persist despite Hb 11. Continue to follow H&H daily. 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 - CAD with Hx of Stent/HTN/Paroxysmal Atrial Fibrillation: Continue home doses of Plavix, Metoprolol. Eliquis for Afib. - Hyperlipidemia: Continue Atorvastatin - Diabetes mellitus: Continue SSI and Lantus - Hypothyroidism: Continue Synthroid - GERD: Continue Ranitidine - Depression: Continue Lexapro - Vitamin B12 deficiency: Continue B12 sublingual drops - DVT prophlaxis: SCD, JHONNY, Eliquis, Ambulation as tolerated - Code Status: Level I Full Code - Disposition: Med/Surg. Patient will likely require some form of SNF vs Inpatient rehab, I expect more likely the former Resident Physician Supervision Note: I interviewed and examined the patient. Discussed with Dr. Saleem and agree with findings and plan as documented in the note. Any exceptions or clarifications are listed here: None Documented By: Francis Deutsch feeling better as far as pain, still the same with weakness vitals noted nad breathing unlabored extensive d/w pt and pain/weakness - appearing prostate cancer + pain (from cancer and overlying muscle/ligament pain) + deconditioning -pain control improving --> as he works with PT may need to escalate further (such as adding gabapentin) -oncology consult in regards to ?how much cancer meds are causing sx, and with progression on bone scan ?best next steps -PT/OT and d/w pt that unless he is choosing hospice (which he definitely does not seem emotionally ready for) doing some sort of inpt rehab (likely at SNF) would be in his best interest just to get out of the vicious cycle of weakness leading to deconditioning leading to more weakness otherwise as above Continued [facility] stay due to: ambulation difficulties Discharge planning: uncertain
--- NOTE | 2018-03-30 14:45 | DIAGNOSTIC IMAGING REPORT ---
BONE SCAN WHOLE BODY HISTORY: 77 years-old Male metastatic cancer worsening pain compare to previous ?progressn? Follow-up study in a patient with metastatic prostate cancer. Subsequent treatment strategy. Patient presents with worsening bone pain. COMPARISON: Bone scan 01/27/2018, CTA chest 03/28/2018 TECHNIQUE: Anterior and posterior whole-body scintigraphic images from a bone scan were obtained utilizing 26.7 mCi technetium 99 MDP. Images were obtained 3 hours post injection. FINDINGS: Innumerable metastatic foci are again seen throughout the axial and appendicular skeletal system. Almost all of the lesions demonstrate increased uptake and appear larger from most recent comparison. For example lesions within the proximal humeral heads are larger and demonstrate increased tracer activity. Lesions within the T12 and L3 vertebral bodies have increased in size and demonstrate increased FDG activity. Multiple new lesions of the midthoracic spine and ribs are also noted. Multiple calvarial lesions appear more apparent on today's study. New lesions of the bilateral femoral shafts with suspected new lesion of the mid shaft right tibia. The sacral lesions may have slightly decreased in uptake from comparison. Uptake about the proximal right forearm also appears to represent metastatic disease. Apparent injection site about the left forearm. Mild physiologic soft tissue uptake is noted as well as physiologic renal uptake. IMPRESSION: Progressive osseous metastatic disease throughout the axial and appendicular skeletal system. The above report was generated using voice recognition software. It may contain grammatical, syntax or spelling errors. Electronically signed by: Pedro Pablo Davis M.D. 03/30/2018 2:44 PM Dictated Date/Time: 03/30/2018 2:36 PM
[2018-03-30] MEDS: ENZALUTAMIDE 40 MG PO SCH (16:16)
[2018-03-30] MEDS ORDERED: NURSING VERBAL MED ORDER ONE (17:30)
[2018-03-30] MEDS: ATORVASTATIN 40 MG TAB PO SCH (21:30)
[2018-03-30] MEDS: LACTOBACILLUS ACIDOPHILUS 1 GM PACK PO SCH (21:32)
[2018-03-30] MEDS: INSULIN GLARGINE SOLOSTAR 100 UNITS/ML 3 ML PEN SC SCH (21:37)
[2018-03-31 03:33] VITALS: BP 170/78; PULSE 57; TEMP 36.3; O2SAT 100
[2018-03-31 06:04] LABS: HEMATOCRIT 31.3 % (42-52); HEMOGLOBIN 10.2 g/dL (14.0-18.0); MEAN CELL VOLUME 84.6 fL (80-100); MEAN CORPUSCULAR HEMOGLOBIN 27.6 pg (25-34); MEAN CORPUSCULAR HGB CONC 32.6 g/dl (32-36); MEAN PLATELET VOLUME 8.7 fL (7.4-10.4); PLATELET COUNT 330 K/uL (130-400); RED CELL DISTRIBUTION WIDTH CV 16.3 % (11.5-14.5); RED CELL DISTRIBUTION WIDTH SD 49.7 fL (36.4-46.3); WHITE BLOOD COUNT 3.42 K/uL (4.8-10.8)
[2018-03-31] MEDS: LEVOTHYROXINE 100 MCG TAB PO SCH (06:04)
[2018-03-31 06:10] VITALS: BMI 31.8
[2018-03-31 06:39] LABS: CALCIUM 7.8 mg/dl (8.5-10.1); CREATININE 0.62 mg/dl (0.60-1.40); POTASSIUM 3.8 mmol/L (3.5-5.1)
[2018-03-31 07:02] VITALS: BMI 31.7
--- NOTE | 2018-03-31 07:18 | Family Medicine Progress Note ---
Progress Note Date of Service March 31, 2018. Subjective Spoke at length with pt and pt's family including and son. Goals are to have good quality of life despite progressive metastatic prostate cancer. This includes improved strength. Are distressed at the amount of doctor's visits they have to go to, have just added Dr. Cuello (palliative) as their thirteenth provider. Do not want to stop his eliquis or steroid as has been recommended. I reiterated that palliative at this point in time is an important member of the team and to continue their care. Pt's pain is controlled and does not have other complaints at this time. Weakness is much improved, per . She is concerned about taking him back home and having to come back. Have been reluctant to start home PT in the past but now they see that it may be very important. Do not want inpatient rehab at this time. Denies chest pain, difficulty breathing, abdominal pain, diarrhea or vomiting however stools are loose (chronic). ROS See HPI for pertinent positives and negatives. Objective Physical Exam Notes: GENERAL: Awake, alert, in no distress HENT: Normocephalic, atraumatic. EYES: Normal conjunctiva. Sclera non-icteric. NECK: Supple. FROM. RESPIRATORY: Clear to auscultation. CARDIAC: Regular rate, normal rhythm. Extremities warm and well perfused. Pulses equal. ABDOMEN: Soft, non-distended. No tenderness to palpation. No rebound or guarding. No masses. LOWER EXTREMITIES: Calves are equal size bilaterally and non-tender. No edema. No discoloration. NEURO: No motor deficits noted. SKIN: No rash or jaundice noted. Assessment and Plan 77 year old male with hx of metastatic prostate cancer who presents with acute on chronic weakness/failure to thrive. 1. Weakness with metastatic prostate cancer and leading chronic anemia requiring blood transfusion: Bone scan 03/30/18 confirms progression of metastases. On chronic blood transfusion as outpatient - Initial transfusion with 2 units PRBCs. Stable. Follow daily h&h Consult heme/onc (Dr. Ku) for input. Pain controlled with Tylenol and Mobic Scheduled + [place] PRN Continue Prednisone. 4. CAD with Hx of Stent/HTN/Paroxysmal Atrial Fibrillation Continue home doses of Plavix, Metoprolol. Eliquis for Afib. 5. Hyperlipidemia Continue Atorvastatin 6. Diabetes mellitus Continue SSI and Lantus 7. Hypothyroidism Continue Synthroid 8. GERD Continue Ranitidine 9. Depression Continue Lexapro 10. Vitamin B12 deficiency Continue B12 sublingual drops DVT prophlaxis: SCD, JHONNY, Eliquis, Ambulation as tolerated Code Status: Level I Full Code. Is currently in the care of Dr. Cuello. Dispo: Med/Surg. Patient does not desire inpatient rehab. Will work to get home PT. Current Inpatient Medications Medications (Trade) Dose Ordered Sig/Jean-Claude Route Start Time Stop Time Status Last Admin Dose Admin Ioversol (Optiray 320) 100 ml UD PRN IV 03/28/18 18:30 04/01/18 18:29 Atorvastatin Calcium (Lipitor Tab) 80 mg HS PO 03/29/18 21:00 04/28/18 20:59 03/30/18 21:30 80 MG Clopidogrel Bisulfate (plAVix TAB) 75 mg QAM PO 03/29/18 08:00 04/28/18 08:59 03/31/18 08:44 75 MG Escitalopram Oxalate (Lexapro Tab) 10 mg DAILY PO 03/29/18 08:00 04/28/18 08:59 03/31/18 08:45 10 MG Levothyroxine Sodium (Synthroid Tab) 100 mcg DAILYBB PO 03/29/18 06:30 04/28/18 06:29 03/31/18 06:04 100 MCG Magnesium Oxide (Mag-Ox Tab) 400 mg BID PO 03/29/18 08:00 04/28/18 08:59 03/31/18 08:44 400 MG Metoprolol Succinate (Toprol Xl Tab) 12.5 mg QAM PO 03/29/18 08:00 04/28/18 08:59 03/31/18 08:47 12.5 MG Potassium/ Phosphorus/Sodium (Phospha 250 Neutral 155-852-130 Mg) 1 tab BID PO 03/29/18 08:00 04/28/18 08:59 03/31/18 08:48 1 TAB Prednisone (PredniSONE TAB) 10 mg QAM PO 03/29/18 08:00 04/28/18 08:59 03/31/18 08:48 10 MG Ranitidine HCl (zANTac TAB) 150 mg BID PO 03/29/18 08:00 04/28/18 08:59 03/31/18 08:48 150 MG Apixaban (Eliquis Tab) 5 mg BID PO 03/29/18 08:00 04/28/18 08:59 03/31/18 08:48 5 MG Diphenhydramine HCl (Benadryl Cap) 25 mg DAILY PRN PO 03/28/18 22:30 04/27/18 22:29 Insulin Glargine (Lantus Solostar Pen) 16 units HS SC 03/29/18 21:00 04/28/18 20:59 03/30/18 21:37 16 UNITS Ondansetron HCl (Zofran Odt) 8 mg Q6H PRN PO 03/28/18 22:30 04/27/18 22:29 Insulin Aspart (novoLOG ASPART) SLIDING SCALE If C... ACHS SC 03/29/18 06:30 04/28/18 06:59 03/31/18 13:37 10 UNITS Glucose (Glucose 40% Gel) 15-30 GRAMS 15 GRAMS... UD PRN PO 03/28/18 22:30 04/27/18 22:29 Glucose (Glucose Chew Tab) 4-8 Tablets 4 Tabl... UD PRN PO 03/28/18 22:30 04/27/18 22:29 Dextrose (Dextrose 50% 50ML Syringe) 25-50ML OF 50% DW IV FOR... UD PRN IV 03/28/18 22:30 04/27/18 22:29 Glucagon (Glucagon Inj) 1 mg UD PRN SQ 03/28/18 22:30 04/27/18 22:29 Carbohydrates (Carbohydrates For Hypoglycemia) 15-30 GRAMS 15 grams if BSG 54-69... UD PRN PO 03/28/18 22:30 04/27/18 22:29 Miscellaneous (Iv Fluids Completed) 1 ea PRN PRN N/A 03/28/18 23:15 03/28/19 23:14 Acetaminophen (Tylenol Tab) 650 mg TID PO 03/29/18 14:00 04/27/18 22:29 03/31/18 13:38 650 MG Meloxicam (Mobic Tab) 7.5 mg BID PO 03/29/18 20:00 04/28/18 19:59 03/31/18 08:46 7.5 MG Diclofenac Sodium (Voltaren 1% Top Gel) 1 appln QID EXT 03/29/18 12:00 04/28/18 11:59 03/31/18 13:38 1 APPLN Acetaminophen/ Hydrocodone Bitart ([place] 5/325 Tab) 1 tab TID PRN PO 03/29/18 09:30 04/12/18 09:29 Enteral Nutritional Formula (Boost Glucose Control) 1 can BIDM PO 03/30/18 08:00 04/29/18 07:59 03/30/18 17:00 1 CAN Lactobacillus Acidophilus (Floranex Tab) 4 tab TIDM PO 03/31/18 17:00 04/30/18 16:59 Date Time Temp Pulse Resp B/P (MAP) Pulse Ox O2 Delivery O2 Flow Rate FiO2 03/31/18 16:03 36.5 57 20 147/64 (91) 96 Room Air 03/31/18 15:09 Room Air 03/31/18 08:45 Room Air 03/31/18 07:34 36.5 61 18 137/69 (91) 96 Room Air 03/31/18 03:33 36.3 57 18 170/78 (108) 100 Room Air 03/31/18 00:00 Room Air 03/30/18 22:54 36.6 73 20 134/82 (99) 96 Room Air 03/30/18 19:21 36.5 60 18 131/62 (85) 94 Room Air 03/31/18 05:24 03/31/18 05:24 Test 03/31/18 05:24 03/31/18 16:38 Red Blood Count 3.70 M/uL (4.7-6.1) Mean Corpuscular Volume 84.6 fL (80-100) Mean Corpuscular Hemoglobin 27.6 pg (25-34) Mean Corpuscular Hemoglobin Concent 32.6 g/dl (32-36) RDW Standard Deviation 49.7 fL (36.4-46.3) RDW Coefficient of Variation 16.3 % (11.5-14.5) Mean Platelet Volume 8.7 fL (7.4-10.4) Anion Gap 9.0 mmol/L (3-11) Est Creatinine Clear Calc Drug Dose 111.4 ml/min Estimated GFR () 110.9 Estimated GFR (Non- 95.7 BUN/Creatinine Ratio 23.2 (10-20) Calcium Level 7.8 mg/dl (8.5-10.1) Prostate Specific Antigen 19.400 ng/ml (0.000-4.000) Bedside Glucose 209 mg/dl (70-99) Continued [facility] stay due to: ambulation difficulties Discharge planning: home with home health Resident Tracking Resident Involvement: Resident Care Provided Care Provided: Adult Hospital Medicine Reviewed: Pt Seen/Exam by Me History felt well this am. ate breakfast. had not been eating too well at home. at bedside Constitutional: denies: fever Respiratory: negative: short of breath Cardiovascular: denies chest pain General Appearance: no apparent distress Respiratory: lungs clear, no respiratory distress Cardiovascular: regular rate, rhythm Neurologic/Psychiatric: alert Skin Characteristics: warm/dry Assessment/Plan Resident Physician Supervision Note: I independently interviewed and examined the patient and verified the mims history and physical, reviewed labs and image studies, discussed the case with the resident Dr. Grove and agree with the findings and care plan.
[2018-03-31 07:34] VITALS: BP 137/69; PULSE 61; TEMP 36.5; O2SAT 96
[2018-03-31] MEDS: MAGNESIUM OXIDE 400 MG TAB PO SCH ×2 (08:44→20:36)
[2018-03-31] MEDS: CLOPIDOGREL BISULFATE 75 MG TAB PO SCH (08:44)
[2018-03-31] MEDS: ACETAMINOPHEN 325 MG TAB PO SCH ×3 (08:45→20:35)
[2018-03-31] MEDS: ESCITALOPRAM OXALATE 10 MG TAB PO SCH (08:45)
[2018-03-31] MEDS: MELOXICAM 7.5 MG TAB PO SCH ×2 (08:46→20:36)
[2018-03-31] MEDS: METOPROLOL SUCC 25MG EXT REL TAB PO SCH (08:47)
[2018-03-31] MEDS: APIXABAN 2.5 MG TAB PO SCH ×2 (08:48→20:36)
[2018-03-31] MEDS: RANITIDINE HCL 150 MG TAB PO SCH ×2 (08:48→20:34)
[2018-03-31] MEDS: POT PHOSPHATE MONOBASIC W/ SOD TAB PO SCH ×2 (08:48→20:35)
[2018-03-31] MEDS: LACTOBACILLUS ACIDOPHILUS 1 GM PACK PO SCH ×2 (08:49→13:35)
[2018-03-31] MEDS: BOOST GLUCOSE CONTROL PO SCH ×2 (08:49→17:21)
[2018-03-31] MEDS: DICLOFENAC SOD 1% GEL 100 GM TUBE EXT SCH ×4 (08:50→20:34)
[2018-03-31] MEDS: INSULIN ASPART 100 UNITS/ML 3 ML PEN SC SCH ×4 (08:53→20:42)
[2018-03-31] MEDS ORDERED: NURSING VERBAL MED ORDER ONE (14:00)
[2018-03-31 16:03] VITALS: BP 147/64; PULSE 57; TEMP 36.5; O2SAT 96
[2018-03-31] MEDS: LACTOBACILLUS ACIDOPHILUS (FLORANEX) TAB PO SCH (17:21)
[2018-03-31] MEDS: ENZALUTAMIDE 40 MG PO SCH (17:23)
--- NOTE | 2018-03-31 17:33 | Medical Consult ---
Consultation Date of Consultation: March 31, 2018. Attending Physician: Lillian Posey M.D. Reason for Consultation: Progressive stage IV prostate cancer with bone mets History of Present Illness Mr. Kathleen is known to the consulting medical oncology service. He has Stage IV prostate cancer, hormone refractory since 2013. He started on Xtandi in Feb 2018 after failing Zytiga in the past, more remotely Lupron and palliative XRT for biochemical recurrence. Patient presented to [facility] for weakness, poor stamina. He was in the process of tapering off prednisone at his oncologist's recommendation as it was thought that his proximal weakness was from jail steroid use. He required PRBC in past 2 weeks prior to admission due to symptomatic anemia as well. On admission to [facility], his Hgb was in 8 g/dL so he received 2 units PRBC. He also had bone scan that reveals progressive known mets as well as new areas of involvement in the bones. His prednisone was increased to 10 mg daily for stress dosing. He had CT of chest that was negative for acute findings. Additional history obtained from the patient and family at bedside. His reports significant weakness the day of his admission, patient difficult to move. He was also more confused. He was dyspneic with minor exertion. He was not having chest pain. His appetite was fluctuating. He was having left hip pain and bilateral shoulder as well as neck pain. This pain has all improved. Past Medical/Surgical History Medical Problems: (1) Abrasion of left arm Status: Acute (2) Anemia Status: Chronic (3) Back pain Status: Acute (4) Bronchitis Status: Acute (5) Bursitis of left hip Status: Acute (6) Chronic kidney disease Status: Acute (7) Dehydration Status: Acute (8) Dyspnea on exertion Status: Acute (9) Elevated troponin Status: Acute (10) Epigastric abdominal pain Status: Acute (11) Fever Status: Acute (12) Generalized weakness Status: Acute (13) Headache Status: Acute (14) Infection of skin Status: Acute (15) Left lower lobe pneumonia Status: Acute (16) Poorly controlled diabetes mellitus Status: Acute (17) Prostate cancer metastatic to multiple sites Status: Acute (18) Right knee pain Status: Acute (19) Skin tear of right upper extremity Status: Acute (20) Substernal chest pain Status: Acute (21) Syncope Status: Acute (22) Viral syndrome Status: Acute Surgical Problems: (1) S/P prostatectomy Status: Chronic (2) Total knee replacement status Status: Acute Family History Blood clots Diabetes mellitus Hypertension Social History Smoking Status: Never Smoker Smokeless Tobacco Use: No Alcohol Use: none Drug Use: none Marital Status: Housing Status: lives with family Occupation Status: retired Allergies Coded Allergies: Penicillins (Verified Allergy, Mild, HIVE'S, 11/27/17) [place] (Verified Allergy, Mild, HIVES, 11/27/17) Aspirin (Verified Allergy, Unknown, HIVES, 11/27/17) [place] Flour (Verified Allergy, Unknown, HIVES, 03/14/18) [place] (Verified Allergy, Unknown, HIVES, 11/27/17) Tomato (Verified Allergy, Unknown, HIVES, 11/27/17) Egg (Verified Adverse Reaction, Unknown, Diarrhea, 11/28/17) Eggs or Egg-derived Products (Unverified Adverse Reaction, Unknown, GI SYMPTOMS, 03/14/18) Food allergy to eggs, also entered this allergy as a drug allergy Current Inpatient Medications Current Inpatient Medications Medications (Trade) Dose Ordered Sig/Jean-Claude Route Start Time Stop Time Status Last Admin Dose Admin Ioversol (Optiray 320) 100 ml UD PRN IV 03/28/18 18:30 04/01/18 18:29 Atorvastatin Calcium (Lipitor Tab) 80 mg HS PO 03/29/18 21:00 04/28/18 20:59 03/30/18 21:30 80 MG Clopidogrel Bisulfate (plAVix TAB) 75 mg QAM PO 03/29/18 08:00 04/28/18 08:59 03/31/18 08:44 75 MG Escitalopram Oxalate (Lexapro Tab) 10 mg DAILY PO 03/29/18 08:00 04/28/18 08:59 03/31/18 08:45 10 MG Levothyroxine Sodium (Synthroid Tab) 100 mcg DAILYBB PO 03/29/18 06:30 04/28/18 06:29 03/31/18 06:04 100 MCG Magnesium Oxide (Mag-Ox Tab) 400 mg BID PO 03/29/18 08:00 04/28/18 08:59 03/31/18 08:44 400 MG Metoprolol Succinate (Toprol Xl Tab) 12.5 mg QAM PO 03/29/18 08:00 04/28/18 08:59 03/31/18 08:47 12.5 MG Potassium/ Phosphorus/Sodium (Phospha 250 Neutral 155-852-130 Mg) 1 tab BID PO 03/29/18 08:00 04/28/18 08:59 03/31/18 08:48 1 TAB Prednisone (PredniSONE TAB) 10 mg QAM PO 03/29/18 08:00 04/28/18 08:59 03/31/18 08:48 10 MG Ranitidine HCl (zANTac TAB) 150 mg BID PO 03/29/18 08:00 04/28/18 08:59 03/31/18 08:48 150 MG Apixaban (Eliquis Tab) 5 mg BID PO 03/29/18 08:00 04/28/18 08:59 03/31/18 08:48 5 MG Diphenhydramine HCl (Benadryl Cap) 25 mg DAILY PRN PO 03/28/18 22:30 04/27/18 22:29 Insulin Glargine (Lantus Solostar Pen) 16 units HS SC 03/29/18 21:00 04/28/18 20:59 03/30/18 21:37 16 UNITS Ondansetron HCl (Zofran Odt) 8 mg Q6H PRN PO 03/28/18 22:30 04/27/18 22:29 Insulin Aspart (novoLOG ASPART) SLIDING SCALE If C... ACHS SC 03/29/18 06:30 04/28/18 06:59 03/31/18 13:37 10 UNITS Glucose (Glucose 40% Gel) 15-30 GRAMS 15 GRAMS... UD PRN PO 03/28/18 22:30 04/27/18 22:29 Glucose (Glucose Chew Tab) 4-8 Tablets 4 Tabl... UD PRN PO 03/28/18 22:30 04/27/18 22:29 Dextrose (Dextrose 50% 50ML Syringe) 25-50ML OF 50% DW IV FOR... UD PRN IV 03/28/18 22:30 04/27/18 22:29 Glucagon (Glucagon Inj) 1 mg UD PRN SQ 03/28/18 22:30 04/27/18 22:29 Carbohydrates (Carbohydrates For Hypoglycemia) 15-30 GRAMS 15 grams if BSG 54-69... UD PRN PO 03/28/18 22:30 04/27/18 22:29 Miscellaneous (Iv Fluids Completed) 1 ea PRN PRN N/A 03/28/18 23:15 03/28/19 23:14 Acetaminophen (Tylenol Tab) 650 mg TID PO 03/29/18 14:00 04/27/18 22:29 03/31/18 13:38 650 MG Meloxicam (Mobic Tab) 7.5 mg BID PO 03/29/18 20:00 04/28/18 19:59 03/31/18 08:46 7.5 MG Diclofenac Sodium (Voltaren 1% Top Gel) 1 appln QID EXT 03/29/18 12:00 04/28/18 11:59 03/31/18 13:38 1 APPLN Acetaminophen/ Hydrocodone Bitart ([place] 5/325 Tab) 1 tab TID PRN PO 03/29/18 09:30 04/12/18 09:29 Enteral Nutritional Formula (Boost Glucose Control) 1 can BIDM PO 03/30/18 08:00 04/29/18 07:59 03/30/18 17:00 1 CAN Lactobacillus Acidophilus (Floranex Tab) 4 tab TIDM PO 03/31/18 17:00 04/30/18 16:59 Review of Systems Constitutional: + weakness, + fatigue Respiratory: + dyspnea on exertion Cardiovascular: No chest pain Abdomen: No pain, No diarrhea, No constipation Musculoskeletal: + joint pain (see hpi) Neurologic: + weakness Physical Exam Date Time Temp Pulse Resp B/P (MAP) Pulse Ox O2 Delivery O2 Flow Rate FiO2 03/31/18 16:03 36.5 57 20 147/64 (91) 96 Room Air 03/31/18 15:09 Room Air 03/31/18 08:45 Room Air 03/31/18 07:34 36.5 61 18 137/69 (91) 96 Room Air 03/31/18 03:33 36.3 57 18 170/78 (108) 100 Room Air 03/31/18 00:00 Room Air 03/30/18 22:54 36.6 73 20 134/82 (99) 96 Room Air 03/30/18 19:21 36.5 60 18 131/62 (85) 94 Room Air General Appearance: no apparent distress, + obese ENT: hearing grossly normal Respiratory/Chest: lungs clear, no respiratory distress Cardiovascular: regular rate, rhythm Abdomen/GI: non tender, soft Neurologic/Psych: alert, oriented x 3 Skin: warm/dry Laboratory Results 03/28/18 18:45 Red Blood Count 3.18, Mean Corpuscular Volume 85.2, Mean Corpuscular Hemoglobin 26.7, Mean Corpuscular Hemoglobin Concent 31.4, Mean Platelet Volume 8.3, Neutrophils (%) (Auto) 71.2, Lymphocytes (%) (Auto) 11.4, Monocytes (%) (Auto) 11.0, Eosinophils (%) (Auto) 1.3, Basophils (%) (Auto) 0.4, Neutrophils # (Auto ) 3.36, Lymphocytes # (Auto) 0.54, Monocytes # (Auto) 0.52, Eosinophils # (Auto ) 0.06, Basophils # (Auto) 0.02 03/30/18 05:15 Red Blood Count 3.99, Mean Corpuscular Volume 85.7, Mean Corpuscular Hemoglobin 27.6, Mean Corpuscular Hemoglobin Concent 32.2, Mean Platelet Volume 8.5, Neutrophils (%) (Auto) 66.8, Lymphocytes (%) (Auto) 14.5, Monocytes (%) (Auto) 11.5, Eosinophils (%) (Auto) 2.3, Basophils (%) (Auto) 0.3, Neutrophils # (Auto ) 2.63, Lymphocytes # (Auto) 0.57, Monocytes # (Auto) 0.45, Eosinophils # (Auto ) 0.09, Basophils # (Auto) 0.01 03/31/18 05:24 03/28/18 18:45 03/30/18 05:15 03/31/18 05:24 Test 03/28/18 18:45 03/28/18 20:50 03/29/18 00:16 03/29/18 08:05 White Blood Count 4.72 K/uL (4.8-10.8) Red Blood Count 3.18 M/uL (4.7-6.1) Hemoglobin 8.5 g/dL (14.0-18.0) Hematocrit 27.1 % (42-52) Mean Corpuscular Volume 85.2 fL (80-100) Mean Corpuscular Hemoglobin 26.7 pg (25-34) Mean Corpuscular Hemoglobin Concent 31.4 g/dl (32-36) Platelet Count 315 K/uL (130-400) Mean Platelet Volume 8.3 fL (7.4-10.4) Neutrophils (%) (Auto) 71.2 % Lymphocytes (%) (Auto) 11.4 % Monocytes (%) (Auto) 11.0 % Eosinophils (%) (Auto) 1.3 % Basophils (%) (Auto) 0.4 % Neutrophils # (Auto) 3.36 K/uL (1.4-6.5) Lymphocytes # (Auto) 0.54 K/uL (1.2-3.4) Monocytes # (Auto) 0.52 K/uL (0.11-0.59) Eosinophils # (Auto) 0.06 K/uL (0-0.5) Basophils # (Auto) 0.02 K/uL (0-0.2) RDW Standard Deviation 53.7 fL (36.4-46.3) RDW Coefficient of Variation 17.0 % (11.5-14.5) Immature Granulocyte % (Auto) 4.7 % Immature Granulocyte # (Auto) 0.22 K/uL (0.00-0.02) Red Blood Cell Morphology Unremarkable Prothrombin Time 10.8 SECONDS (9.0-12.0) Prothromb Time International Ratio 1.0 (0.9-1.1) Anion Gap 8.0 mmol/L (3-11) Est Creatinine Clear Calc Drug Dose 92.4 ml/min Estimated GFR () 102.0 Estimated GFR (Non- 88.0 BUN/Creatinine Ratio 16.1 (10-20) Calcium Level 8.1 mg/dl (8.5-10.1) Magnesium Level 1.9 mg/dl (1.8-2.4) Total Bilirubin 0.5 mg/dl (0.2-1) Aspartate Amino Transf (AST/SGOT) 36 U/L (15-37) Alanine Aminotransferase (ALT/SGPT) 15 U/L (12-78) Alkaline Phosphatase 723 U/L (45-117) Troponin I < 0.015 ng/ml (0-0.045) Pro-B-Type Natriuretic Peptide 348 pg/ml (0-1800) Total Protein 6.0 gm/dl (6.4-8.2) Albumin 2.2 gm/dl (3.4-5.0) Globulin 3.8 gm/dl (2.5-4.0) Albumin/Globulin Ratio 0.6 (0.9-2) Urine Color YELLOW Urine Appearance CLEAR (CLEAR) Urine pH 5.5 (4.5-7.5) Urine Specific [place] 1.037 (1.000-1.030) Urine Protein NEG (NEG) Urine Glucose (UA) 2+ (NEG) Urine Ketones NEG (NEG) Urine Occult Blood NEG (NEG) Urine Nitrite NEG (NEG) Urine Bilirubin NEG (NEG) Urine Urobilinogen NEG (NEG) Urine Leukocyte Esterase NEG (NEG) Bedside Glucose 160 mg/dl (70-99) 141 mg/dl (70-99) Test 03/29/18 11:40 03/29/18 16:50 03/29/18 20:07 03/30/18 05:15 Bedside Glucose 179 mg/dl (70-99) 159 mg/dl (70-99) 263 mg/dl (70-99) White Blood Count 3.93 K/uL (4.8-10.8) Red Blood Count 3.99 M/uL (4.7-6.1) Hemoglobin 11.0 g/dL (14.0-18.0) Hematocrit 34.2 % (42-52) Mean Corpuscular Volume 85.7 fL (80-100) Mean Corpuscular Hemoglobin 27.6 pg (25-34) Mean Corpuscular Hemoglobin Concent 32.2 g/dl (32-36) Platelet Count 315 K/uL (130-400) Mean Platelet Volume 8.5 fL (7.4-10.4) Neutrophils (%) (Auto) 66.8 % Lymphocytes (%) (Auto) 14.5 % Monocytes (%) (Auto) 11.5 % Eosinophils (%) (Auto) 2.3 % Basophils (%) (Auto) 0.3 % Neutrophils # (Auto) 2.63 K/uL (1.4-6.5) Lymphocytes # (Auto) 0.57 K/uL (1.2-3.4) Monocytes # (Auto) 0.45 K/uL (0.11-0.59) Eosinophils # (Auto) 0.09 K/uL (0-0.5) Basophils # (Auto) 0.01 K/uL (0-0.2) RDW Standard Deviation 51.0 fL (36.4-46.3) RDW Coefficient of Variation 16.2 % (11.5-14.5) Immature Granulocyte % (Auto) 4.6 % Immature Granulocyte # (Auto) 0.18 K/uL (0.00-0.02) Anion Gap 6.0 mmol/L (3-11) Est Creatinine Clear Calc Drug Dose 103.2 ml/min Estimated GFR () 106.8 Estimated GFR (Non- 92.1 BUN/Creatinine Ratio 15.3 (10-20) Calcium Level 7.8 mg/dl (8.5-10.1) Test 03/30/18 07:43 03/30/18 11:31 03/30/18 16:32 03/30/18 20:21 Bedside Glucose 143 mg/dl (70-99) 224 mg/dl (70-99) 189 mg/dl (70-99) 243 mg/dl (70-99) Test 03/31/18 05:24 03/31/18 07:41 03/31/18 11:49 03/31/18 16:38 Red Blood Count 3.70 M/uL (4.7-6.1) Mean Corpuscular Volume 84.6 fL (80-100) Mean Corpuscular Hemoglobin 27.6 pg (25-34) Mean Corpuscular Hemoglobin Concent 32.6 g/dl (32-36) RDW Standard Deviation 49.7 fL (36.4-46.3) RDW Coefficient of Variation 16.3 % (11.5-14.5) Mean Platelet Volume 8.7 fL (7.4-10.4) Anion Gap 9.0 mmol/L (3-11) Est Creatinine Clear Calc Drug Dose 111.4 ml/min Estimated GFR () 110.9 Estimated GFR (Non- 95.7 BUN/Creatinine Ratio 23.2 (10-20) Calcium Level 7.8 mg/dl (8.5-10.1) Prostate Specific Antigen 19.400 ng/ml (0.000-4.000) Bedside Glucose 159 mg/dl (70-99) 218 mg/dl (70-99) 209 mg/dl (70-99) CT chest from 03/28/18: . No acute intrathoracic abnormality identified, specifically no acute aortic pathology or evidence of pulmonary thromboembolic disease. 2. No lobar airspace consolidation or pathologic adenopathy. 3. Scattered solid pulmonary nodule of the lungs are again noted bilaterally measuring up to 5 mm, unchanged from comparison study 03/14/2018. 4. Diffuse osteoblastic metastatic disease throughout the imaged axial and appendicular skeletal system. Bone scan 03/30/18: Innumerable metastatic foci are again seen throughout the axial and appendicular skeletal system. Almost all of the lesions demonstrate increased uptake and appear larger from most recent comparison. For example lesions within the proximal humeral heads are larger and demonstrate increased tracer activity. Lesions within the T12 and L3 vertebral bodies have increased in size and demonstrate increased FDG activity. Multiple new lesions of the midthoracic spine and ribs are also noted. Multiple calvarial lesions appear more apparent on today's study. New lesions of the bilateral femoral shafts with suspected new lesion of the mid shaft right tibia. The sacral lesions may have slightly decreased in uptake from comparison. Uptake about the proximal right forearm also appears to represent metastatic disease Assessment & Plan 1. Stage IV prostate cancer with bony metastatic progression after starting Xtandi in Feb 2018 * Patient's overall prognosis is poor * Dr. Ku advises to stay on Xtandi to at least slow down the progression of disease as opposed to stopping and having metastatic disease rapidly progress * Patient can remain on prednisone 10 mg daily during hospitalization, was on a prednisone taper prior to admission as muscle weakness was thought possible due to jail steroid use * Advised bilateral femur XRs- ordered- to check for impending fracture, patient could undergo palliative XRT if this is the case * No further systemic treatment recommended by medical oncology * Dr. Ku not on site today for rounds, plans to discuss with patient/family tomorrow if patient still hospitalized, otherwise can address as outpatient * Advised patient that he can remain palliative supportive transfusions as marrow fails with progressive disease * Patient should have CBCD about 7 days after discharge * ultimately will require hospice care * patient should have medical oncology follow up on discharge The case was discussed with Dr. Ku at time of consult and this note reflects his recommendations. Plan was also discussed with Dr. Grove. I have discussed the patient's case, impression and plan with Nayla Cardenas. Her note reflects my findings and plan (03/31/2018) Dr. Juancarlos Ku Hem/Onc
[2018-03-31 19:50] VITALS: BP 158/74; PULSE 57; TEMP 36.6; O2SAT 99
[2018-03-31] MEDS: ATORVASTATIN 40 MG TAB PO SCH (20:34)
[2018-03-31] MEDS: INSULIN GLARGINE SOLOSTAR 100 UNITS/ML 3 ML PEN SC SCH (20:41)
[2018-04-01 00:04] VITALS: BP 133/54; PULSE 55; TEMP 36.6; O2SAT 98
[2018-04-01 04:00] VITALS: BP 139/61; PULSE 59; TEMP 36.6; O2SAT 96
[2018-04-01] MEDS: LEVOTHYROXINE 100 MCG TAB PO SCH (05:57)
[2018-04-01 06:12] LABS: HEMATOCRIT 32.7 % (42-52); HEMOGLOBIN 10.6 g/dL (14.0-18.0); MEAN CELL VOLUME 85.6 fL (80-100); MEAN CORPUSCULAR HEMOGLOBIN 27.7 pg (25-34); MEAN CORPUSCULAR HGB CONC 32.4 g/dl (32-36); MEAN PLATELET VOLUME 8.7 fL (7.4-10.4); PLATELET COUNT 340 K/uL (130-400); RED CELL DISTRIBUTION WIDTH CV 16.5 % (11.5-14.5); RED CELL DISTRIBUTION WIDTH SD 51.1 fL (36.4-46.3); WHITE BLOOD COUNT 3.35 K/uL (4.8-10.8)
[2018-04-01 06:41] LABS: CALCIUM 7.7 mg/dl (8.5-10.1); CREATININE 0.65 mg/dl (0.60-1.40)
[2018-04-01 07:11] VITALS: Ht 172.7 cm; Wt 95.1 kg
[2018-04-01 07:41] VITALS: BP 153/76; PULSE 49; TEMP 36.5; O2SAT 96
--- NOTE | 2018-04-01 08:31 | Clinical Documentation Query ---
CLINICAL DOCUMENTATION QUERY Dr. TOBIN, In your clinical opinion is this patient being managed for: ( ) Severe protein-calorie malnutrition ( ) Not Agree ( x ) Other explanation of clinical findings (Please Explain. If no explanation given, this would be considered a no response.) Due to progressive metastatic prostate cancer disease as evidenced by repeat bone scan ( ) Unable to determine ( ) Need to Discuss (Please call CDS via extension or qliq. If no interaction occurs this is considered a no response.) The medical record reflects the following clinical findings, treatment, and risk factors. Clinical Indicators: 77 yo male presenting with increasing weakness. Review of historical weights shows weight loss of 3.3% over 16 day period. Per machinist mechanic consult, family reported pt "has probably lost a few pounds over the past couple of months." Pt self reported having a decreased appetite. Treatment: dietary consult, boost glucose control bid, monitor wts, I/O, consider addition of appetite stimulant Risk Factors: metastatic cancer, DM, pain, anemia Severe Malnutrition Criteria: (2 criteria needed) Energy intake: <50% of estimated energy requirement for > 5 days Wt loss: 1-2% in 1 wk, 5% in 1 month, or 7.5% in 3 months Body fat: moderate loss of SQ fat from the orbits, triceps or fat overlying the ribs Muscle mass: moderate muscle wasting at the temples, clavicles, shoulders, interosseous spaces, scapula, thigh, calf Fluid accumulation: moderate to severe localized or generalized edema of the extremities, vulva, scrotum-wt loss may be masked by edema Please clarify and document your clinical opinion in the progress notes and discharge summary. Terms such as "probable", "suspected", "likely", "questionable", "possible", or "still to be ruled out" are acceptable. IF IN AGREEMENT, YOU MUST DOCUMENT ABOVE DIAGNOSTIC STATEMENT IN DAILY PROGRESS NOTES AND DISCHARGE SUMMARY. This document is not part of the patient's record. Thank You, Shana Bhatt, RN [phone]
--- NOTE | 2018-04-01 08:32 | Clinical Documentation Query ---
CLINICAL DOCUMENTATION QUERY Dr. MONTES, In your clinical opinion is this patient being managed for: ( ) Severe protein-calorie malnutrition ( ) Not Agree ( ) Other explanation of clinical findings (Please Explain. If no explanation given, this would be considered a no response.) ( ) Unable to determine ( ) Need to Discuss (Please call CDS via extension or qliq. If no interaction occurs this is considered a no response.) The medical record reflects the following clinical findings, treatment, and risk factors. Clinical Indicators: 77 yo male presenting with increasing weakness. Review of historical weights shows weight loss of 3.3% over 16 day period. Per vice president medical affairs consult, family reported pt "has probably lost a few pounds over the past couple of months." Pt self reported having a decreased appetite. Treatment: dietary consult, boost glucose control bid, monitor wts, I/O, consider addition of appetite stimulant Risk Factors: metastatic cancer, DM, pain, anemia Severe Malnutrition Criteria: (2 criteria needed) Energy intake: <50% of estimated energy requirement for > 5 days Wt loss: 1-2% in 1 wk, 5% in 1 month, or 7.5% in 3 months Body fat: moderate loss of SQ fat from the orbits, triceps or fat overlying the ribs Muscle mass: moderate muscle wasting at the temples, clavicles, shoulders, interosseous spaces, scapula, thigh, calf Fluid accumulation: moderate to severe localized or generalized edema of the extremities, vulva, scrotum-wt loss may be masked by edema Please clarify and document your clinical opinion in the progress notes and discharge summary. Terms such as "probable", "suspected", "likely", "questionable", "possible", or "still to be ruled out" are acceptable. IF IN AGREEMENT, YOU MUST DOCUMENT ABOVE DIAGNOSTIC STATEMENT IN DAILY PROGRESS NOTES AND DISCHARGE SUMMARY. This document is not part of the patient's record. Thank You, Shana Bhatt, RN [phone]
[2018-04-01 09:00] VITALS: PULSE 61
[2018-04-01] MEDS: LACTOBACILLUS ACIDOPHILUS (FLORANEX) TAB PO SCH ×3 (09:00→17:37)
[2018-04-01] MEDS: POT PHOSPHATE MONOBASIC W/ SOD TAB PO SCH (09:00)
[2018-04-01] MEDS: MELOXICAM 7.5 MG TAB PO SCH (09:00)
[2018-04-01] MEDS: ESCITALOPRAM OXALATE 10 MG TAB PO SCH (09:00)
[2018-04-01] MEDS: RANITIDINE HCL 150 MG TAB PO SCH (09:01)
[2018-04-01] MEDS: METOPROLOL SUCC 25MG EXT REL TAB PO SCH (09:01)
[2018-04-01] MEDS: ACETAMINOPHEN 325 MG TAB PO SCH ×2 (09:02→14:46)
[2018-04-01] MEDS: MAGNESIUM OXIDE 400 MG TAB PO SCH (09:03)
[2018-04-01] MEDS: APIXABAN 2.5 MG TAB PO SCH (09:03)
[2018-04-01] MEDS: CLOPIDOGREL BISULFATE 75 MG TAB PO SCH (09:03)
[2018-04-01] MEDS: BOOST GLUCOSE CONTROL PO SCH ×2 (09:03→17:38)
[2018-04-01] MEDS: DICLOFENAC SOD 1% GEL 100 GM TUBE EXT SCH ×3 (09:03→17:37)
[2018-04-01] MEDS: INSULIN ASPART 100 UNITS/ML 3 ML PEN SC SCH ×3 (09:06→16:30)
--- NOTE | 2018-04-01 11:46 | DIAGNOSTIC IMAGING REPORT ---
R FEMUR 2 VIEWS ROUTINE, L FEMUR 2 VIEWS ROUTINE CLINICAL HISTORY: Bilateral femur mets, check for impending fracture COMPARISON STUDY: Bone scan 03/30/2018. FINDINGS: There are few scattered areas of sclerosis within the right and left femur consistent with the patient's history of osteoblastic metastatic disease. Dominant lesion is seen within the intertrochanteric region of the proximal right femur and measures 2 cm. No lytic lesions or cortical destruction to suggest an impending fracture at this time. Vascular calcifications are noted. There is a right total knee arthroplasty. No acute fracture or dislocation within the right or left femur. Dense areas sclerosis within the left iliac wing is also consistent with a metastatic focus. IMPRESSION: 1. Multiple scattered osteoblastic metastatic lesions seen within the pelvis, left femur, and right femur. 2. No acute fracture or dislocation within the right or left femur. No areas of cortical destruction to suggest an impending fracture at this time. Electronically signed by: Panda Yanez M.D. 04/01/2018 11:45 AM Dictated Date/Time: 04/01/2018 11:40 AM
--- NOTE | 2018-04-01 13:59 | Discharge Instructions ---
Discharge Instructions Date of Service April 01, 2018. Admission Reason for Admission: Prostate Cancer Metastatic To Bone Discharge Discharge Diagnosis / Problem: Prostate cancer metastatic to bone causing weakness Discharge Goals Goal(s): Decrease discomfort, Improve function, Increase independence, Improve disease control, Learn about illness, Diagnostic testing Activity Recommendations Activity Limitations: per Instructions/Follow-up section . Instructions / Follow-Up Instructions / Follow-Up You were admitted due to increasing weakness at home. On a bone scan done here we found that your prostate cancer metastases have progressed in your bones. Dr. Ku's service saw you while in hospital and the decision was made to continue your chemo Xtandi for palliative reasons, to help your bone pain be more tolerable. Pain control will be important for you. We have changed your pain medication to [place]. Stop taking tramadol since this is making you so drowsy. Due to your already loose bowels, I do not expect that the norco will constipate you, but please be aware that this is possible. If you find that you are not stooling at minimum once per day, please begin Miralax. Continue to stay well hydrated. Palliative blood transfusions may be necessary again for you. Dr. Ku's office will arrange for monitoring of your blood counts in 7 days and transfuse if necessary. You are in need of physical therapy, and this is being arranged for you to happen in the home. Your appointment with Dr. Cuello has been rescheduled and their office will be reaching out to you to inform you of the time. Please keep your appointment with Dr. Ku this Saturday as well. Be well A [facility] Current Hospital Diet Patient's current hospital diet: Diabetes Type 2 Diet, AHA Diet (Heart Healthy) Discharge Diet Recommended Diet: Diabetes Type 2 Diet Pending Studies Studies pending at discharge: no Laboratory Results Hemoglobin A1c Test 02/04/18 15:47 Range/Units Estimated Average Glucose 269 mg/dl Hemoglobin A1c 11.0 H 4.5-5.6 % Medical Emergencies . Who to Call and When: Medical Emergencies: If at any time you feel your situation is an emergency, please call 911 immediately. . Non-Emergent Contact Non-Emergency issues call your: Primary Care Provider, Oncologist Call Non-Emergent contact if: your pain is not controlled, your pain is worsening . . "Provider Documentation" section prepared by Yvette Grove. .
--- NOTE | 2018-04-01 15:02 | Palliative Care Progress Note ---
Palliative Care Progress Note Date of Service April 01, 2018. Subjective Pt evaluation today including: conversation w/ patient, conversation w/ family Patient is a 77 year old male with prostate Ca with metastasis to the bone who presented with increased shortness of breath and fatigue which has improved with PRBC administrations (last Hgb/Hct 10.6/32.7). Currently, he is getting ready for being discharged to home and will have follow up blood work on Saturday at 1315, with a follow up with Dr. Ku on Saturday at [phone]. This patient is known to Dr. Cuello and she last saw him in clinic on February 25. Working on arranging an appt with Dr. Cuello following Dr. Ku on Saturday to discuss GOALS OF CARE and CODE STATUS. Discharge planning in process Objective Vital Signs Date Time Temp Pulse Resp B/P (MAP) Pulse Ox O2 Delivery O2 Flow Rate FiO2 04/01/18 09:00 Room Air 04/01/18 09:00 61 04/01/18 07:41 36.5 49 19 153/76 (101) 96 04/01/18 04:00 36.6 59 18 139/61 (87) 96 Room Air 04/01/18 00:04 36.6 55 16 133/54 (80) 98 Room Air 04/01/18 00:00 Room Air 03/31/18 20:00 Room Air 03/31/18 19:50 36.6 57 18 158/74 (102) 99 Room Air 03/31/18 16:03 36.5 57 20 147/64 (91) 96 Room Air 03/31/18 15:09 Room Air Laboratory Results Last 24 Hours Test 03/31/18 16:38 03/31/18 20:18 04/01/18 05:42 04/01/18 07:50 Bedside Glucose 209 mg/dl 240 mg/dl 147 mg/dl White Blood Count 3.35 K/uL Red Blood Count 3.82 M/uL Hemoglobin 10.6 g/dL Hematocrit 32.7 % Mean Corpuscular Volume 85.6 fL Mean Corpuscular Hemoglobin 27.7 pg Mean Corpuscular Hemoglobin Concent 32.4 g/dl RDW Standard Deviation 51.1 fL RDW Coefficient of Variation 16.5 % Platelet Count 340 K/uL Mean Platelet Volume 8.7 fL Sodium Level 136 mmol/L Potassium Level 4.0 mmol/L Chloride Level 106 mmol/L Carbon Dioxide Level 24 mmol/L Anion Gap 6.0 mmol/L Blood Urea Nitrogen 15 mg/dl Creatinine 0.65 mg/dl Est Creatinine Clear Calc Drug Dose 106.2 ml/min Estimated GFR () 108.8 Estimated GFR (Non- 93.8 BUN/Creatinine Ratio 23.8 Random Glucose 161 mg/dl Calcium Level 7.7 mg/dl Test 04/01/18 11:54 Bedside Glucose 202 mg/dl Assessment and Plan Continued [facility] stay due to: ambulation difficulties Discharge planning: home with home health
[2018-04-01 15:21] VITALS: BP 153/76; PULSE 61; TEMP 36.5; O2SAT 96
[2018-04-01] MEDS: ENZALUTAMIDE 40 MG PO SCH (16:44)
--- NOTE | 2018-04-01 17:14 | Discharge Summary ---
Discharge Summary Date of Service April 01, 2018. Discharge Summary Admission Date: March 31, 2018 at 09:12 Discharge Date: April 01, 2018 Discharge Disposition: Home with services Principal Diagnosis: Progressive metastatic prostate cancer Problems/Secondary Diagnoses: (1) Anemia Status: Chronic (2) S/P prostatectomy Status: Chronic (3) CAD with Hx of Stent/HTN/Paroxysmal Atrial Fibrillation Hyperlipidemia [id number] Mellitus Hypothyroidism GERD Depression Vit B12 Deficiency Immunizations: Have You Had Influenza Vaccine: No History of Tetanus Vaccine?: YEARS AGO History of Pneumococcal: No History of Hepatitis B Vaccine: No Procedures: BONE SCAN WHOLE BODY COMPARISON: Bone scan 01/27/2018, CTA chest 03/28/2018 FINDINGS: Innumerable metastatic foci are again seen throughout the axial and appendicular skeletal system. Almost all of the lesions demonstrate increased uptake and appear larger from most recent comparison. For example lesions within the proximal humeral heads are larger and demonstrate increased tracer activity. Lesions within the T12 and L3 vertebral bodies have increased in size and demonstrate increased FDG activity. Multiple new lesions of the midthoracic spine and ribs are also noted. Multiple calvarial lesions appear more apparent on today's study. New lesions of the bilateral femoral shafts with suspected new lesion of the mid shaft right tibia. The sacral lesions may have slightly decreased in uptake from comparison. Uptake about the proximal right forearm also appears to represent metastatic disease. Apparent injection site about the left forearm. Mild physiologic soft tissue uptake is noted as well as physiologic renal uptake. IMPRESSION: Progressive osseous metastatic disease throughout the axial and appendicular skeletal system. Electronically signed by: Pedro Pablo Davis M.D. 03/30/2018 2:44 PM Medication Reconciliation Continued Medications: Apixaban (Eliquis) 5 Mg Tab 5 MG PO BID Atorvastatin (Lipitor) 80 Mg Tab 80 MG PO HS Clopidogrel Bisulfate (Clopidogrel) 75 Mg Tab 75 MG PO QAM Cyanocobalamin (Vitamin B12) Unknown Strength Mario 2 DROPS UT QPM TAKE THIS MEDICATION WITH EVENING MEAL Diphenhydramine Hcl (Benadryl Allergy) 25 Mg Tab 25 MG PO UD PRN for Allergic Reaction TAKE PER PACKAGE DIRECTIONS Enzalutamide (Xtandi) 40 Mg Cap 160 MG PO QD@1600 Escitalopram Oxalate (Escitalopram Oxalate) 10 Mg Tab 10 MG PO DAILY Insulin Glargine (Toujeo Solostar) 300 Unit/Ml Inj 35 UNITS SC HS Insulin Lispro (Human) (Humalog Kwikpen) 100 Unit/Ml Inj 1 DOSE SC BIDM COVERAGE DIRECTED BY SLIDING SCALE Levothyroxine Sodium (Levothyroxine Sodium) 100 Mcg Tab 100 MCG PO QAM Lisinopril (Lisinopril) 10 Mg Tab 5 MG PO HOLD HOLD STARTING 03/29/2018 UNTIL OTHERWISE DIRECTED TO TAKE BY Magnesium Oxide (Mag-Ox) 400 Mg Tab 400 MG PO BID Metoprolol Succinate (Metoprolol Succinate ER) 25 Mg Tabcr 12.5 MG PO QAM Pot Phosphate Monobasic W/ Sod (Phospha 250 Neutral) 1 Tab Tab 1 TAB PO BID Prednisone (Prednisone) 5 Mg Tab 5 MG PO QAM Prednisone (Prednisone) 5 Mg Tab 5 MG PO QPM UD, TAB TAPER OFF EVENING DOSE MD DIRECTS Ranitidine HCl (Ranitidine HCl) 150 Mg Tab 150 MG PO BID Tramadol HCl (Tramadol HCl) 50 Mg Tab 50 MG PO Q6-8HRS PRN for Pain Discharge Exam Pt is stable on day of discharge, weakness mildly improved although pt understands and is motivated to continue with home PT in order to optimize quality of life. Pt eating and voiding well, pain is controlled with [place]. ROS See HPI for pertinent positives and negatives. PHYSICAL EXAM: GENERAL: Awake, alert, in no distress HENT: Normocephalic, atraumatic. EYES: Normal conjunctiva. Sclera non-icteric. NECK: Supple. FROM. RESPIRATORY: Clear to auscultation. CARDIAC: Regular rate, normal rhythm. Extremities warm and well perfused. Pulses equal. ABDOMEN: Soft, non-distended. No tenderness to palpation. No rebound or guarding. No masses. LOWER EXTREMITIES: Calves are equal size bilaterally and non-tender. No edema. No discoloration. NEURO: No motor deficits noted. SKIN: No rash or jaundice noted. Hospital Course Mr. Kathleen is a pleasant 77 year old male here for chronic weakness and failure to thrive-- - found to have progression of his metastatic prostate cancer to the bones on bone scan. His fatigue and dyspnea have had some amelioration s/p 2 PRBC units transfusion - Pt seen by his oncologist Dr. Ku's service and decision made to continue palliative Xtendi medication. B/L femur XR done and showed multiple osteoblastic metastatic lesions but no acute fractures or evidence of impending fractures at this time. - Palliative consulted as patient is known to Dr. Cuello and plan is to discuss goals of care and code status at their next, now rescheduled, outpatient follow up appointment. - Pain management to be resumed by PCP/oncology/palliative. Pt has expressed that his tramadol makes him sleepy, however he did well with [place] and mobic here. Sent home on norco. Mobic d/manuela. Advised to not take any NSAIDS while on plavix and eliquis, Total Time Spent: Greater than 30 minutes This includes examination of the patient, discharge planning, medication reconciliation, and communication with other providers. Discharge Instructions Please refer to the electronic Patient Visit Report (Discharge Instructions) for additional information. Additional Copies To Van Valiente M.D. Reviewed: Pt Seen/Exam by Me History no new concerns. continuing to feel better and appetite improved pain controlled. Constitutional: denies: fever Respiratory: negative: short of breath Cardiovascular: denies chest pain General Appearance: no apparent distress Respiratory: lungs clear, no respiratory distress Cardiovascular: regular rate, rhythm Neurologic/Psychiatric: alert Skin Characteristics: warm/dry Assessment/Plan Resident Physician Supervision Note: I independently interviewed and examined the patient and verified the mims history and physical, reviewed labs and image studies, discussed the case with the resident Dr. Grove and agree with the findings and care plan. Time spent in discharge 40 min
[2018-04-01] MEDS ORDERED: HYDR-5688 PO (18:14)
--- NOTE | 2018-04-01 18:33 | Hematology/Oncology Prog Note ---
Hematology/Onc Progress Note Date of Service April 01, 2018. 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 His previous treatment as follows: -Diagnosed a case of prostatic adenocarcinoma in September,. - S/P radial prostatectomy, T3 N0 M0, - S/P radiation therapy in 2005 for a rise in the PSA level. 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 - Received Zytiga and prednisone for about 2 years, in September, discontinued Zytiga therapy. -Xofigo x 6, last dose received on 04/25/2017. -bone scan showed mixed response with progression of the disease in the thoracic and lumbar spine (06/05/2017). ~S/P radiation therapy to the thoracolumbar spine which was completed on 07/09/2017 (3000 cGy). Now he is admitted at [facility] on 03/28/2018 for generalized weakness, decreasing stamina, presently he is on tapering dose of prednisone, earlier thought to have possible proximal muscle weakness because of chronic steroid use, he received 2 units of PRBC about 2 weeks before this admission for symptomatic anemia. He received additional 2 units of PRBC during this hospitalization when hemoglobin level was around 8 g/dL, bone scan done during this admission showed worsening bony metastatic disease, plain x-ray of the femur showed multiple osteoblastic metastatic disease but no definite area of cortical destruction suggest impending fracture. declining performed status noted, ambulates with the help of the walker I saw him at bedside, he was sitting comfortably in the bed, has bilateral leg edema, feeling better after blood transfusion support, -CT scan of the chest done on 03/28/2018 showed no evidence of pulmonary embolism , no pneumonia, no enlarged lymph nodes, bilateral scattered lung nodule measuring up to 5 mm noted which has remained stable, diffuse osteoblastic bony metastatic disease noted Hemoglobin level improved to around 10.6 after 2 units of PRBC, normal platelet count, mild leukopenia noted. Normal kidney function test noted. PSA level is stable around 19.4 (03/31/2018) He is also on monthly Xgeva as an outpatient therapy for bone modifying agent, will continue Xgeva as an outpatient every monthly. He is on Lupron therapy. Last dose of Lupron received on 01/14/2018, 30 mg. He is due for next dose of Lupron on 04/30/2018. Because of recent the changes medical conditions, we decided to continue with slightly higher dose of prednisone for now and will see how he does. He is likely to go home soon today, will see him as an outpatient. Will continue Xtandi at this time. Dr. Juancarlos Ku Hem/Onc Vital Signs Vital Signs Past 12 Hours Date Time Temp Pulse Resp B/P (MAP) Pulse Ox O2 Delivery O2 Flow Rate FiO2 04/01/18 15:21 36.5 61 19 96 Room Air 04/01/18 09:00 Room Air 04/01/18 09:00 61 04/01/18 07:41 36.5 49 19 153/76 (101) 96
== END 2018-04-01 18:30 | disposition home health service (06) | DRG 544 ==
LOC: C.EDB 17:34 → C.4E 22:25 → ENRESERV 22:36 → OBSVTOIN 03-31 09:12
PROVIDERS: ADMIT Hospitalist; ATTEND Family Medicine
DX: C79.51 Secondary malignant neoplasm of bone (principal); G89.3 Neoplasm related pain (acute) (chronic); D63.0 Anemia in neoplastic disease; R62.7 Adult failure to thrive; M99.01 Segmental and somatic dysfunction of cervical region; E11.9 Type 2 diabetes mellitus without complications; I48.0 Paroxysmal atrial fibrillation; I25.10 Atherosclerotic heart disease of native coronary artery without angina pectoris; E78.5 Hyperlipidemia, unspecified; E03.9 Hypothyroidism, unspecified; E53.8 Deficiency of other specified B group vitamins; K21.9 Gastro-esophageal reflux disease without esophagitis; I11.9 Hypertensive heart disease without heart failure; I25.2 Old myocardial infarction; F32.9 Major depressive disorder, single episode, unspecified; Z79.899 Other long term (current) drug therapy; Z79.01 Long term (current) use of anticoagulants; Z79.52 Long term (current) use of systemic steroids; Z79.4 Long term (current) use of insulin; Z85.46 Personal history of malignant neoplasm of prostate; Z90.79 Acquired absence of other genital organ(s); Z92.3 Personal history of irradiation; Z95.5 Presence of coronary angioplasty implant and graft; Z88.0 Allergy status to penicillin; Z88.6 Allergy status to analgesic agent; Z91.012 Allergy to eggs; Z91.018 Allergy to other foods; Z83.3 Family history of diabetes mellitus; Z82.49 Family history of ischemic heart disease and other diseases of the circulatory system

== ENCOUNTER → 2018-04-08 | Outpatient (CLI) | payer OTHER, MEDICARE ==
[~2018-04-08] MED LIST changes: +APIX1TAB3 PO; +CYAN1DRO UT; +DIPH1TAB87 PO; +ENZA1CAP PO; +HYDR-5688 PO; +LISI-461 PO; +LXP10 PO; +PLV75 PO; +PRED-301 PO; +RANI150T2 PO; +TPRSR/25 PO; +ULT50 PO
[2018-04-08 17:07] LABS: HEMATOCRIT 33.3 % (42-52); HEMOGLOBIN 10.8 g/dL (14.0-18.0); MEAN CELL VOLUME 84.9 fL (80-100); MEAN CORPUSCULAR HEMOGLOBIN 27.6 pg (25-34); MEAN CORPUSCULAR HGB CONC 32.4 g/dl (32-36); MEAN PLATELET VOLUME 8.9 fL (7.4-10.4); NUCLEATED RED BLOOD CELL ABS 0.02 K/uL (0-0); PLATELET COUNT 398 K/uL (130-400); RED CELL DISTRIBUTION WIDTH CV 16.8 % (11.5-14.5); RED CELL DISTRIBUTION WIDTH SD 52.2 fL (36.4-46.3); WHITE BLOOD COUNT 4.26 K/uL (4.8-10.8)
[2018-04-08 17:33] LABS: BLOOD UREA NITROGEN 13 mg/dl (7-18); CALCIUM 8.4 mg/dl (8.5-10.1); CARBON DIOXIDE 18 mmol/L (21-32); CREATININE 0.83 mg/dl (0.60-1.40); GLUCOSE 219 mg/dl (70-99); POTASSIUM 4.1 mmol/L (3.5-5.1); SODIUM 132 mmol/L (136-145)
[2018-04-08 19:51] LABS: BASO % 0.5 %; BASO ABS # 0.02 K/uL (0-0.2); EOS % 1.6 %; EOS ABS # 0.07 K/uL (0-0.5); IG# 0.26 K/uL (0.00-0.02); LYMPH % 12.7 %; LYMPH ABS # 0.54 K/uL (1.2-3.4); MONO % 9.6 %; MONO ABS # 0.41 K/uL (0.11-0.59); NEUT % 69.5 %; NEUT ABS # 2.96 K/uL (1.4-6.5)
== END | disposition home or self-care (01) ==
LOC: C.LABPBG 15:33
PROVIDERS: ATTEND Internal Medicine Geriatric Medicine
DX: D64.9 Anemia, unspecified (principal); E11.65 Type 2 diabetes mellitus with hyperglycemia; E03.9 Hypothyroidism, unspecified